=== PATIENT | male | born 1940 | race Caucasian/White ===

== ENCOUNTER 2019-07-22 12:03 | Outpatient (CLI) | payer MEDICARE, SELFPAY ==
[2019-07-22 12:35] LABS: Basophils # 0.3 10^3/uL (0.0-0.1); Basophils % 0.3 %; Eosinophils # 0.9 10^3/uL (0.0-0.8); Eosinophils % 0.9 %; Hematocrit 36.8 % (42.0-52.0); Hemoglobin 11.9 g/dL (11.7-16.6); Lymphocytes # 83.6 10^3/uL (0.8-4.8); Lymphocytes % 81.2 %; Mean Corpuscular HGB Conc 32.3 g/dL (30.0-36.0); Mean Corpuscular Volume 95.8 fL (80-94); Mean Platelet Volume 9.7 fL (7.4-10.4); Monocytes # 13.5 10^3/uL (0.2-0.9); Monocytes % 13.1 %; Neutrophils # 4.4 10^3/uL (1.8-7.7); Neutrophils % 4.2 %; Nucleated Red Blood Cells % 0 %; Platelet Count 168 10^3/cmm (130-400); Red Blood Count 3.84 10^6/uL (4.1-5.3); Red Cell Distribution Width 14.6 % (12.1-15.1)
[2019-07-22 12:54] LABS: Alanine Aminotransferase 15 U/L (0-41); Albumin Level 4.5 g/dL (3.5-5.2); Alkaline Phosphatase 63 IU/L (40-130); Anion Gap 14.4 (5-19); Aspartate Amino Transferase 24 U/L (0-40); Blood Urea Nitrogen 19 mg/dL (8-23); Calcium 10.2 mg/dL (8.5-10.5); Carbon Dioxide 24 mmol/L (22-29); Chloride 96 mmol/L (98-107); Globulin 2.9 g/dL (1.3-4.6); Glucose 88 mg/dL (65-115); Lactate Dehydrogenase 317 U/L (135-225); Potassium 4.4 mmol/L (3.5-5.1); Sodium 130 mmol/L (136-145); Total Bilirubin 0.4 mg/dL (0.15-1.2); Total Protein 7.4 g/dL (6.6-8.7)
[2019-07-22 13:06] LABS: Slide Review Slide Review Perform; White Blood Count 102.9 10^3/uL (4.0-10.0)
--- NOTE | 2019-07-23 07:30 | ONC FU_ITS ---
Dr. Ruiz Patient Follow-Up Note Patient: Jay Walsh Unit #: [id number]: 1940 Dicatated By: Ish Ruiz M.D.Date of Visit:Jul 22, 2019 Onc Med Follow-up/Prog Note Chief Complaint: Chronic lymphocytic leukemia. History of Present Illness: This is a 78-year-old man with chronic leukocytic leukemia, Meza stage 0. 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 He is now being followed on yearly surveillance cystoscopy. In the course of having a routine surveillance cystoscopy in December 2015 he was found to have a lymphocytosis. His CBC from 01/04/2016 showed normal hemoglobin at 13.8 g with white blood cell count 26,600 and platelet count 233,000. The differential showed 60% lymphocytes. He was seen for further evaluation by Dr. Scottie Baron on 01/26/2016. A subsequent flow cytometry confirmed a monoclonal population of B lymphocytes with coexpression of CD5 and CD19, consistent with chronic lymphocytic leukemia. He had early stage disease and he was just followed on observation/expectant management. He was seen here initially on 07/30/2018. His CBC at that time showed normal hemoglobin 13.5 g with white blood cell count increased to 43,000 and platelet count normal at 165,000. His chem profile was unremarkable except for mildly elevated BUN and creatinine at 19 1.3 mg/dL. The LDH was mildly elevated at 266/225 U/L. He appeared stable clinically, and he continued on observation/expectant management. His other medical illnesses have been limited to hypertension and superficial bladder cancer. He had smoked in the past, but only for a period of 11 years, and he quit smoking back in 1966. INTERIM HISTORY: At his follow-up visit in January 2019 there was further increase in the white blood cell count to 67,000, but with his hemoglobin stable at 13.0 g and platelet count normal at 186,000. LDH was mildly elevated but also stable. He had a repeat CBC with Dr. Santos at the end of April, and at that point there was just a slight further increase in the white blood cell count to 71,000. He is seen for a follow-up visit. He says he feels fine, though he has not had a lot of energy. He has been taking Tylenol in the morning, because he just feels tired if he does not take it. His ECOG score is 1. Appetite is pretty good. His weight is stable. He has no fever or night sweats. He has no shortness of breath, cough, or chest pain. He has no GI or complaints. He has a little pain at times in the right elbow. He has no other joint or bone pain. He has no focal neurologic symptoms. Medications: Acetaminophen 1 Tablet (of 500 mg) Oral daily, AmLODIPine Besylate 1 (10 mg) Tablet Oral daily, Aspirin 1 (81 mg) Tablet Oral daily, Cetirizine HCl Tablet Oral PRN, Loratadine 1 Tablet (of 10 mg) Oral daily PRN, Multivitamin Adult 1 Tablet Oral daily, Omeprazole 1 (20 mg) Capsule Delayed Release Oral daily Allergies: Azo Tabs and Iodine. Review of Systems: Constitutional - He feels fine, but he does not have good energy. He likes to fish a couple times a week. His appetite is good and his weight is stable. No fever, chills, hot flashes, or night sweats. ECOG score is 1, ENMT - He has sinus trouble related to allergies. No mouth sores. No sore throat or difficulty swallowing, Hematologic/Lymphatic - He bruises easily, Respiratory - No shortness of breath. No cough. No pleuritic pain or hemoptysis, Cardiovascular - No angina pain. No palpitations, Gastrointestinal - No nausea or vomiting. No heartburn or acid reflux. No diarrhea or constipation. No blood in the stool or black stools, Genitourinary (M) - No dysuria or hematuria. No urinary frequency. No urgency or incontinence, Musculoskeletal - He has some stiffness and pain in his elbows, Integumentary - No skin complications, Neurologic - No headache or dizziness. No numbness/paresthesias or other focal neurologic symptoms, Psychiatric - No anxiety or depression. No insomnia. Vital Signs: Performed on Jul 22, 2019 13:36 Height - 72.00 in Weight - 182.0 lbs (LOW) BSA - 2.05 sq.m BMI - 24.68 Temperature - 97.9 F (LOW) Pulse - 70 /min Respiration - 16 /min BP - 138/70 mm(hg) O2 Sat - 100 % Pain - 0 Physical Examination: Constitutional - He looks good generally, Eyes - Sclerae nonicteric. Conjunctivae clear, ENMT - No lesions noted in the oral cavity, Hematologic/Lymphatic - No cervical, clavicular, or axillary adenopathy, Respiratory - Lungs are clear with good air movement bilaterally, Cardiovascular - Heart rhythm is regular. There is no murmur, gallop, or rub noted, Abdomen - Soft. Liver and spleen are not enlarged. There is no abdominal mass or ascites noted and there is no inguinal adenopathy, Extremities - No edema. Pedal pulses are palpable bilaterally, Neurologic - No focal neurologic deficits noted. Lab/Imaging: Test performed on Jul 22, 2019 12:17 LDH (Total) 317 U/L Sodium 130 mmol/L Potassium 4.4 mmol/L Chloride 96 mmol/L CO2 24 mmol/L Anion Gap 14.4 BUN 19 mg/dL Creatinine 1.4 mg/dL Cr Clearance (Est) 49.96 mL/min Glucose 88 mg/dL Calcium 10.2 mg/dL Protein, Total 7.4 g/dL Albumin 4.5 g/dL Globulin 2.9 g/dL Bilirubin, Total 0.4 mg/dL ALT (SGPT) 15 U/L AST (SGOT) 24 U/L Alkaline Phosphatase 63 IU/L WBC 102.9 10 3/uL RBC 3.84 10 6/uL HGB 11.9 g/dL HCT 36.8 % MCV 95.8 fL MCH 31.0 pg MCHC 32.3 g/dL RDW 14.6 % Platelet Count 168 10 3/cmm MPV 9.7 fL Neutrophils 4.4 10 3/uL Lymphocytes 83.6 10 3/uL Monocytes 13.5 10 3/uL Eosinophils 0.9 10 3/uL Basophils 0.3 10 3/uL Neutrophil % 4.2 % Lymphocyte % 81.2 % Monocyte % 13.1 % Eosinophil % 0.9 % Basophils % 0.3 % CBC Slide Review Slide Review Perform Impression: 1. Patient with chronic lymphocytic leukemia, Meza stage 0 at initial diagnosis in December 2015. 2. He has been followed on observation/expectant management. His other medical illnesses include: 3. Hypertension. 4. Superficial bladder cancer, currently on surveillance following TURBT and BCG therapy. During follow-up, there has been a fairly rapid increase in his lymphocyte count. As of his follow-up visit in January 2019 his other blood counts had remained normal. He has now become mildly anemic, and he does have some fatigue. Overall, he does appear to be showing significant disease progression. Plan: I will now start monitoring his blood counts monthly. With any further decline in his hemoglobin/hematocrit levels, he will need to start treatment for the CLL, most likely with the venetoclax/obinutuzumab combination. I will see him again in 3 months, or sooner as needed. Signed By: Ish Ruiz M.D. <<Signature on File>>
== END 2019-07-22 12:04 | disposition home or self-care (01) ==
LOC: ONCMED 12:03
PROVIDERS: Family Provider Family Medicine; PCP Family Medicine; Visit Provider Internal Medicine Medical Oncology
DX: C91.10 Chronic lymphocytic leukemia of B-cell type not having achieved remission (principal); I10 Essential (primary) hypertension; Z79.82 Long term (current) use of aspirin; Z79.899 Other long term (current) drug therapy; Z85.51 Personal history of malignant neoplasm of bladder; Z87.891 Personal history of nicotine dependence; Z92.3 Personal history of irradiation
CPT/HCPCS: 36415; 80053; 83615; 85025; 99214

== ENCOUNTER 2019-08-20 08:25 | Outpatient (CLI) | payer MEDICARE, SELFPAY ==
[2019-08-20 09:10] LABS: Basophils # 0.3 10^3/uL (0.0-0.1); Basophils % 0.2 %; Eosinophils # 1.7 10^3/uL (0.0-0.8); Eosinophils % 1.4 %; Hematocrit 37.5 % (42.0-52.0); Lymphocytes % 80.8 %; Mean Corpuscular Hemoglobin 30.5 pg (28.0-34.0); Mean Corpuscular Volume 95.4 fL (80-94); Mean Platelet Volume 9.7 fL (7.4-10.4); Monocytes # 15.3 10^3/uL (0.2-0.9); Monocytes % 13.2 %; Neutrophils # 4.7 10^3/uL (1.8-7.7); Nucleated Red Blood Cells % 0 %; Platelet Count 202 10^3/cmm (130-400); Red Blood Count 3.93 10^6/uL (4.1-5.3); Red Cell Distribution Width 14.7 % (12.1-15.1)
[2019-08-20 09:37] LABS: Slide Review Slide Review Perform
[2019-08-20 09:41] LABS: Absolute Eosinophils 1.1 10^3/cmm (0.0-0.7); Absolute Segmented Neutrophil 13.9 10/cmm (1.6-7.1); Band Neutrophils Absolute 1.2 10^3/cmm (0.0-1.2); Basophils Absolute 1.2 10^3/cmm (0.0-0.2); Eosinophils 1 %; Lymphocytes 61 %; Lymphocytes Absolute 97.8 10^3/cmm (1.2-3.4); Platelet Estimate Normal (Normal); Segmented Neutrophils 12 %; Smudge Cells 1+; Total Cells Counted 100 (0-100)
[2019-08-20 09:43] LABS: White Blood Count 116.4 10^3/uL (4.0-10.0)
== END 2019-08-20 08:26 | disposition home or self-care (01) ==
LOC: ONCMED 08:27
PROVIDERS: Family Provider Family Medicine; PCP Family Medicine; Visit Provider Internal Medicine Medical Oncology
DX: C91.10 Chronic lymphocytic leukemia of B-cell type not having achieved remission (principal)
CPT/HCPCS: 36415; 85007; 85025

== ENCOUNTER 2019-09-22 08:25 | Outpatient (CLI) | payer MEDICARE, SELFPAY ==
[2019-09-22 10:33] LABS: Hematocrit 35.3 % (42.0-52.0); Hemoglobin 11.2 g/dL (11.7-16.6); Mean Corpuscular HGB Conc 31.7 g/dL (30.0-36.0); Mean Corpuscular Hemoglobin 30.4 pg (28.0-34.0); Mean Corpuscular Volume 95.9 fL (80-94); Mean Platelet Volume 10.1 fL (7.4-10.4); Nucleated Red Blood Cells % 0 %; Platelet Count 171 10^3/cmm (130-400); Red Blood Count 3.68 10^6/uL (4.1-5.3); Red Cell Distribution Width 15.2 % (12.1-15.1)
[2019-09-22 11:01] LABS: Slide Review Slide Review Perform; White Blood Count 132.8 10^3/uL (4.0-10.0)
[2019-09-22 11:03] LABS: Absolute Eosinophils 1.3 10^3/cmm (0.0-0.7); Absolute Segmented Neutrophil 6.6 10/cmm (1.6-7.1); Blastocytes 4 % (0-0); Eosinophils 1 %; Lymphocytes 87 %; Segmented Neutrophils 5 %
[2019-09-22 11:04] LABS: Platelet Estimate Normal (Normal); Total Cells Counted 100 (0-100)
== END 2019-09-22 08:26 | disposition home or self-care (01) ==
LOC: ONCMED 15:36
PROVIDERS: Family Provider Family Medicine; PCP Family Medicine; Visit Provider Internal Medicine Medical Oncology
DX: C91.10 Chronic lymphocytic leukemia of B-cell type not having achieved remission (principal)
CPT/HCPCS: 36415; 85007; 85025

== ENCOUNTER 2019-10-28 12:22 | Outpatient (CLI) | payer MEDICARE, SELFPAY ==
[2019-10-28 12:51] LABS: Basophils # 0.2 10^3/uL (0.0-0.1); Basophils % 0.2 %; Eosinophils # 1.6 10^3/uL (0.0-0.8); Hemoglobin 10.4 g/dL (11.7-16.6); Lymphocytes % 75.3 %; Mean Corpuscular HGB Conc 31.5 g/dL (30.0-36.0); Mean Corpuscular Hemoglobin 30.7 pg (28.0-34.0); Mean Corpuscular Volume 97.3 fL (80-94); Mean Platelet Volume 9.6 fL (7.4-10.4); Monocytes # 31.3 10^3/uL (0.2-0.9); Monocytes % 20.3 %; Neutrophils # 4.2 10^3/uL (1.8-7.7); Neutrophils % 2.7 %; Nucleated Red Blood Cells % 0 %; Platelet Count 189 10^3/cmm (130-400); Red Blood Count 3.39 10^6/uL (4.1-5.3); Red Cell Distribution Width 15.9 % (12.1-15.1)
[2019-10-28 13:10] LABS: Alanine Aminotransferase 19 U/L (0-41); Albumin Level 4.2 g/dL (3.5-5.2); Alkaline Phosphatase 85 IU/L (40-130); Anion Gap 16.7 (5-19); Aspartate Amino Transferase 36 U/L (0-40); Blood Urea Nitrogen 16 mg/dL (8-23); Calcium 10.1 mg/dL (8.5-10.5); Carbon Dioxide 22 mmol/L (22-29); Chloride 99 mmol/L (98-107); Globulin 3.5 g/dL (1.3-4.6); Glucose 95 mg/dL (65-115); Osmolality Calculated 268 mOsm/kg (285-295); Sodium 131 mmol/L (136-145); Total Bilirubin 0.5 mg/dL (0.15-1.2); Total Protein 7.7 g/dL (6.6-8.7)
[2019-10-28 13:19] LABS: Lactate Dehydrogenase 429 U/L (135-225); Potassium 6.7 mmol/L (3.5-5.1)
[2019-10-28 13:51] LABS: Slide Review Slide Review Perform; White Blood Count 154.2 10^3/uL (4.0-10.0)
[2019-10-28 15:23] LABS: Uric Acid 6.9 mg/dL (3.4-7.0)
--- NOTE | 2019-11-01 11:47 | ONC FU_ITS ---
Dr. Ruiz Patient Follow-Up Note Patient: Jay Walsh Unit #: [id number]: 1940 Dicatated By: Ish Ruiz M.D.Date of Visit:Oct 28, 2019 Onc Med Follow-up/Prog Note Chief Complaint: Chronic lymphocytic leukemia. History of Present Illness: This is a 79 year-old man with chronic leukocytic leukemia, Meza stage 0 at initial diagnosis in December 2015. He now has evidence of progression to stage III. 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 He is now being followed on yearly surveillance cystoscopy. In the course of having a routine surveillance cystoscopy in December 2015 he was found to have a lymphocytosis. His CBC from 01/04/2016 showed normal hemoglobin at 13.8 g with white blood cell count 26,600 and platelet count 233,000. The differential showed 60% lymphocytes. He was seen for further evaluation by Dr. Scottie Baron on 01/26/2016. A subsequent flow cytometry confirmed a monoclonal population of B lymphocytes with coexpression of CD5 and CD19, consistent with chronic lymphocytic leukemia. He had early stage disease and he was just followed on observation/expectant management. He was seen here initially on 07/30/2018. His CBC at that time showed normal hemoglobin 13.5 g with white blood cell count increased to 43,000 and platelet count normal at 165,000. His chem profile was unremarkable except for mildly elevated BUN and creatinine at 19 1.3 mg/dL. The LDH was mildly elevated at 266/225 U/L. He appeared stable clinically, and he continued on observation/expectant management. His other medical illnesses have been limited to hypertension and superficial bladder cancer. He had smoked in the past, but only for a period of 11 years, and he quit smoking back in 1966. INTERIM HISTORY: At his follow-up visit in January 2019 there was further increase in the white blood cell count to 67,000, but with his hemoglobin stable at 13.0 g and platelet count normal at 186,000. LDH was mildly elevated but also stable. As of his follow-up visit in June 2019 there was a significant increase in the white blood cell count to 102,000. His hemoglobin was slightly low at 11.9 g. Platelet count remained normal at 168,000. With the decrease in his hemoglobin, I had recommended that he start treatment. Due to the coronavirus pandemic, he requested to put this off until October. He is seen for a follow-up visit. He is still feeling pretty good generally, though he does have fatigue and he says he feels a little weaker every day. He is still doing most of his activities. His ECOG score is 1. He has good appetite. He has no fever or night sweats. He does not complain of shortness of breath or cough, and he has not been having chest pain. He has had some mild constipation, but he says that his bowels are still pretty good. He has no other GI complaints. His urination is a little slow, but not too bad. He has pain in his right elbow, which is not new. He has no focal neurologic symptoms. Medications: Acetaminophen 1 Tablet (of 500 mg) Oral daily, AmLODIPine Besylate 1 (10 mg) Tablet Oral daily, Aspirin 1 (81 mg) Tablet Oral daily, Cetirizine HCl Tablet Oral PRN, Claritin Tablet Oral PRN, Clotrimazole-Betamethasone (1-0.05 %) Cream Topical daily PRN, Loratadine 1 Tablet (of 10 mg) Oral daily PRN, Multivitamin Adult 1 Tablet Oral daily, Omeprazole 1 (20 mg) Capsule Delayed Release Oral daily Allergies: Azo Tabs and Iodine. Review of Systems: Constitutional - He still has fatigue, and he complains that he gets a little weaker every day. He is still doing most of his activities. His appetite is good and his weight is stable. No fever, chills, hot flashes, or night sweats. ECOG score is 1, ENMT - He has allergy related sinus symptoms. No mouth sores. No sore throat or difficulty swallowing, Hematologic/Lymphatic - He has some bruising, Respiratory - No shortness of breath. No cough. No pleuritic pain or hemoptysis, Cardiovascular - No angina pain. No palpitations, Gastrointestinal - No nausea or vomiting. No heartburn or acid reflux. He has some constipation, but his bowels are pretty good. No blood in the stool or black stools, Genitourinary (M) - His urination is a little slow, but pretty good. No dysuria or hematuria. No urinary frequency. No urgency or incontinence, Musculoskeletal - He has some pain in his right elbow, Integumentary - No skin complications, Neurologic - No headache or dizziness. No numbness/paresthesias or other focal neurologic symptoms, Psychiatric - No anxiety or depression. No insomnia. Vital Signs: Performed on Oct 28, 2019 14:35 Height - 72.00 in Weight - 175.8 lbs (LOW) BSA - 2.02 sq.m BMI - 23.84 Temperature - 98.6 F Pulse - 81 /min Respiration - 24 /min BP - 142/73 mm(hg) (HIGH) O2 Sat - 97 % Pain - 0 Physical Examination: Constitutional - He looks good generally, Eyes - Sclerae nonicteric. Conjunctivae clear, ENMT - No lesions noted in the oral cavity, Hematologic/Lymphatic - The submandibular glands are slightly prominent. There is no cervical, clavicular, or axillary adenopathy noted, Respiratory - Lungs are clear with good air movement bilaterally, Cardiovascular - Heart rhythm is regular. There is no murmur, gallop, or rub noted, Abdomen - Soft. Liver and spleen are not enlarged. There is no abdominal mass or ascites noted and there is no inguinal adenopathy, Extremities - No edema, Neurologic - No focal neurologic deficits noted. Lab/Imaging: Test performed on Oct 28, 2019 12:30 LDH (Total) 429 U/L Sodium 131 mmol/L Uric Acid 6.9 mg/dL Potassium 6.7 mmol/L Chloride 99 mmol/L CO2 22 mmol/L Anion Gap 16.7 BUN 16 mg/dL Creatinine 1.4 mg/dL Cr Clearance (Est) 48.26 mL/min Glucose 95 mg/dL Calcium 10.1 mg/dL Protein, Total 7.7 g/dL Albumin 4.2 g/dL Globulin 3.5 g/dL Bilirubin, Total 0.5 mg/dL ALT (SGPT) 19 U/L AST (SGOT) 36 U/L Alkaline Phosphatase 85 IU/L WBC 154.2 10 3/uL RBC 3.39 10 6/uL HGB 10.4 g/dL HCT 33.0 % MCV 97.3 fL MCH 30.7 pg MCHC 31.5 g/dL RDW 15.9 % Platelet Count 189 10 3/cmm MPV 9.6 fL Neutrophils 4.2 10 3/uL Lymphocytes 116.0 10 3/uL Monocytes 31.3 10 3/uL Eosinophils 1.6 10 3/uL Basophils 0.2 10 3/uL Neutrophil % 2.7 % Lymphocyte % 75.3 % Monocyte % 20.3 % Eosinophil % 1.0 % Basophils % 0.2 % CBC Slide Review Slide Review Perform SLIDE REVIEW AGREES WITH AUTOMATED RESULTS Impression: 1. Patient with chronic lymphocytic leukemia, Meza stage 0 at initial diagnosis in December 2015, but with subsequent progression to stage III. 2. He has been followed on observation/expectant management. His other medical illnesses include: 3. Hypertension. 4. Superficial bladder cancer, currently on surveillance following TURBT and BCG therapy. During follow-up, there has been a fairly rapid increase in his lymphocyte count. As of his follow-up visit in January 2019 his other blood counts had remained normal. However, by June 2019 his white count had increased significantly, to 102,000. At that point his hemoglobin had dropped to 11.9 g, consistent with Meza stage III disease. With that finding, I had recommended that he start treatment. Due to the coronavirus pandemic, he requested to put it off until October. Since then there has been further increase in the white blood cell count to 154,000 and the hemoglobin is now down to 10.4 g. He does have some fatigue. He otherwise appears stable clinically. Plan: He will return next week to begin treatment with obinutuzumab in combination with venetoclax. He is starting allopurinol prophylaxis this week. Signed By: Ish Ruiz M.D. <<Signature on File>>
== END 2019-10-28 12:23 | disposition home or self-care (01) ==
LOC: ONCMED 12:22
PROVIDERS: Family Provider Family Medicine; PCP Family Medicine; Visit Provider Internal Medicine Medical Oncology
DX: C91.10 Chronic lymphocytic leukemia of B-cell type not having achieved remission (principal); C67.9 Malignant neoplasm of bladder, unspecified; I10 Essential (primary) hypertension
CPT/HCPCS: 36415; 80053; 83615; 84550; 85025; 99214

== ENCOUNTER 2019-11-24 06:50 | Outpatient (RCR) | payer MEDICARE, SELFPAY ==
[2019-11-03] MEDS: sodium chloride 0.9% 500 ML 999 ML IV (09:30)
[2019-11-03] MEDS: acetaminophen 325 mg Tablet 650 MG PO (09:30)
[2019-11-03] MEDS: dexamethasone 20 MG in sodium chloride 0.9% 50 ML 187 MG IV (09:35)
[2019-11-03] MEDS: sodium chloride 0.9% (100 ml) 100 ML 25 ML (09:35)
[2019-11-03] MEDS: ondansetron 2 mg/ML SDV 2 mL 8 MG IV (11:28)
[2019-11-04] MEDS: sodium chloride 0.9% 500 ML 999 ML IV (08:45)
[2019-11-04] MEDS: acetaminophen 325 mg Tablet 650 MG PO (08:45)
[2019-11-04] MEDS: dexamethasone 20 MG in sodium chloride 0.9% 50 ML 187 MG IV (08:50)
[2019-11-04] MEDS: sodium chloride 0.9% (100 ml) 100 ML 45 ML (09:45)
[2019-11-10 08:51] LABS: Basophils % 0.8 %; Eosinophils # 0.3 10^3/uL (0.0-0.8); Eosinophils % 6.6 %; Hematocrit 31.1 % (42.0-52.0); Hemoglobin 10.3 g/dL (11.7-16.6); Lymphocytes # 2.1 10^3/uL (0.8-4.8); Mean Corpuscular HGB Conc 33.1 g/dL (30.0-36.0); Mean Corpuscular Volume 90.7 fL (80-94); Monocytes # 0.4 10^3/uL (0.2-0.9); Monocytes % 8.5 %; Neutrophils # 2.2 10^3/uL (1.8-7.7); Neutrophils % 42.3 %; Nucleated Red Blood Cells % 0 %; Platelet Count 146 10^3/cmm (130-400); Red Blood Count 3.43 10^6/uL (4.1-5.3); White Blood Count 5.2 10^3/uL (4.0-10.0)
[2019-11-10 09:07] LABS: Alanine Aminotransferase 28 U/L (0-41); Albumin Level 3.9 g/dL (3.5-5.2); Alkaline Phosphatase 70 IU/L (40-130); Anion Gap 15.4 (5-19); Aspartate Amino Transferase 23 U/L (0-40); Blood Urea Nitrogen 17 mg/dL (8-23); Calcium 9.3 mg/dL (8.5-10.5); Carbon Dioxide 22 mmol/L (22-29); Chloride 98 mmol/L (98-107); Globulin 3.2 g/dL (1.3-4.6); Glucose 102 mg/dL (65-115); Osmolality Calculated 269 mOsm/kg (285-295); Potassium 4.4 mmol/L (3.5-5.1); Sodium 131 mmol/L (136-145); Total Bilirubin 0.6 mg/dL (0.15-1.2); Total Protein 7.1 g/dL (6.6-8.7); Uric Acid 4.8 mg/dL (3.4-7.0)
[2019-11-10] MEDS: sodium chloride 0.9% 500 ML 999 ML IV (10:51)
[2019-11-10] MEDS: acetaminophen 325 mg Tablet 650 MG PO (10:54)
[2019-11-10] MEDS: dexamethasone 20 MG in sodium chloride 0.9% 50 ML 187 MG IV (11:10)
--- NOTE | 2019-11-10 11:13 | ONC FU_ITS ---
[facility] Patient Note Patient: Jay Walsh Unit #: [id number]: 1940 Dictated By: Rhett GodwinDate of Visit: Nov 10, 2019 Onc MED Follow-Up/Prog Note Chief Complaint: Chronic lymphocytic leukemia. 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 He now has evidence of progression to stage III. 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 He is now being followed on yearly surveillance cystoscopy. In the course of having a routine surveillance cystoscopy in December 2015 he was found to have a lymphocytosis. His CBC from 01/04/2016 showed normal hemoglobin at 13.8 g with white blood cell count 26,600 and platelet count 233,000. The differential showed 60% lymphocytes. He was seen for further evaluation by Dr. Scottie Baron on 01/26/2016. A subsequent flow cytometry confirmed a monoclonal population of B lymphocytes with coexpression of CD5 and CD19, consistent with chronic lymphocytic leukemia. He had early stage disease and he was just followed on observation/expectant management. He was seen here initially on 07/30/2018. His CBC at that time showed normal hemoglobin 13.5 g with white blood cell count increased to 43,000 and platelet count normal at 165,000. His chem profile was unremarkable except for mildly elevated BUN and creatinine at 19 1.3 mg/dL. The LDH was mildly elevated at 266/225 U/L. He appeared stable clinically, and he continued on observation/expectant management. His other medical illnesses have been limited to hypertension and superficial bladder cancer. He had smoked in the past, but only for a period of 11 years, and he quit smoking back in 1966. INTERIM HISTORY: At his follow-up visit in January 2019 there was further increase in the white blood cell count to 67,000, but with his hemoglobin stable at 13.0 g and platelet count normal at 186,000. LDH was mildly elevated but also stable. As of his follow-up visit in June 2019 there was a significant increase in the white blood cell count to 102,000. His hemoglobin was slightly low at 11.9 g. Platelet count remained normal at 168,000. With the decrease in his hemoglobin, Dr Ruiz had recommended that he start treatment. Due to the coronavirus pandemic, he requested to put this off until October. Mr Walsh began treatment with obinutuzumab on 11/03/2019. Mr Walsh is here today for followup. He is due for cycle 1 day 8 obinutuzumab. He did have difficulty with nausea significant weakness and fatigue with day 1 to treatment. He states for about 3 to 4 days after treatment he felt pretty washed out and weak. However the last 3 days he states he has felt really good. He states I feel better than I have before I got sick . He states he has been trying to be active around the house. Has been out tying up tomatoes and working in the yard. He states his appetite is good. He denies any fever or chills. He denies any taste changes. He has had no trouble swallowing. He states he thinks the lymph nodes in his neck are much better as well. He states his breathing has been normal for him. No chest pain or palpitations. His bowels are normal for him. He states he has some chronic constipation but has a controlled with stool softeners and as needed laxatives. He denies any pain. He denies any lower extremity edema. His ECOG is 1. Past Medical History: Chronic lymphocytic leukemia History of colon polyps Hypertension Superficial bladder cancer Past Surgical History: Bilateral cataract excisions Multiple cystoscopies TURBT and BCG therapy Colonoscopy in 2018 TURP in 1993 Allergies: Azo Tabs and Iodine. Medications: Acetaminophen 1 Tablet (of 500 mg) Oral daily AmLODIPine Besylate 1 (10 mg) Tablet Oral daily Aspirin 1 (81 mg) Tablet Oral daily Claritin Tablet Oral PRN Clotrimazole-Betamethasone (1-0.05 %) Cream Topical daily PRN Loratadine 1 Tablet (of 10 mg) Oral daily PRN Multivitamin Adult 1 Tablet Oral daily Omeprazole 1 (20 mg) Capsule Delayed Release Oral daily Family History: Mr. Walsh's mother at age 90: heart disease. Mr. Walsh's father at age 78: myocardial infarction. Mr. Walsh has 3 brothers: 3 . Mr. Walsh's first brother's lung cancer. Another brother's prostate cancer. He has 1 sister who is . Father of heart attack at age 78. Mother also had heart disease, but she lived to age 90. A brother of lung cancer at age 80 and another of prostate cancer at age 70. Another brother and a sister both of heart disease. Social History: Mr. Walsh is and he is retired. Mr. Walsh quit smoking 51 years ago but had smoked 1.0 pack/day for 0 years. He has no history of drinking. He has a history of smoking for 11 years. He quit smoking in 1966. He had some alcohol use when he was young , but none since then. Review Of Symptoms: Constitutional Denies and current fevers, chills, night sweats, excessive fatigue or weight loss. Had significant fatigue for about 3-4 days after treatment. Feels better over the last 3 days than I have since before I got sick . Allergic/Immunologic No reactions. Eyes Denies significant visual changes. No diplopia. No amaurosis. ENMT Denies changes in hearing, sore throat, mouth sores, difficulty or changes in swallowing ability, and/or sinus drainage. Hematologic/Lymphatic Denies easy bruising or bleeding. The patient denies any tender or palpable lymph nodes. Breasts Respiratory Denies dyspnea on exertion, chest pain, cough or hemoptysis. Denies orthopnea. Cardiovascular Denies anginal chest pain, palpitations or orthopnea. Gastrointestinal Denies any current nausea, vomiting, diarrhea, GI bleeding, or constipation. Denies change in bowel habits and/or stool color, no heartburn or early satiety. Had nausea after day 1 and 2 but resolved. Some chronic constipation, but they are moving good now. Genitourinary (M) Denies hematuria, dysuria, increased frequency, urgency, hesitancy or incontinence. Musculoskeletal Denies joint pain, swelling or redness. No decreased range of motion. Integumentary Denies chronic rashes, inflammation, ulcerations or skin changes. Neurologic Denies headache, blurred vision, and no areas of focal weakness or numbness. Normal gait. No sensory problems. Psychiatric Denies insomnia, depression, yan or mood swings. Vital Signs: Performed on Nov 10, 2019 10:03 Height - 72.00 in Weight - 174.6 lbs (LOW) BSA - 2.01 sq.m BMI - 23.68 Temperature - 98.9 F (HIGH) Pulse - 72 /min Respiration - 18 /min BP - 127/62 mm(hg) O2 Sat - 99 % Pain - 0,1 - No physically strenuous activity, but ambulatory and able to carry out light or sedentary work (e.g. office work, light house work). (ECOG) Physical Examination: Constitutional Alert, oriented, no acute distress. Skin pink, warm and dry. Head Normocephalic; atraumatic. Eyes Conjunctivae and sclerae are clear and without icterus. Pupils are reactive and equal. Neck Supple without masses or thyromegaly. No jugular venous distension. Hematologic/Lymphatic No petechiae or purpura. No tender or palpable lymph nodes in the cervical or supraclavicular areas. Respiratory Lungs are clear to auscultation without rhonchi or wheezing. Cardiovascular Regular rate and rhythm of heart without murmurs,clicks, gallops or rubs. Back/Spine Non-tender to palpation. Extremities No visible deformities, no cyanosis, clubbing or edema. Musculoskeletal No tenderness or swelling, normal range of motion without obvious weakness. Integumentary No rashes or lesions. Neurologic No sensory or motor deficits, normal cerebellar function, normal gait. Psychiatric Alert and oriented times three. Coherent speech. Verbalizes understanding of our discussions today. Laboratory:Test performed on Nov 10, 2019 08:41 Sodium 131 mmol/L Uric Acid 4.8 mg/dL Potassium 4.4 mmol/L Chloride 98 mmol/L CO2 22 mmol/L Anion Gap 15.4 BUN 17 mg/dL Creatinine 1.1 mg/dL Cr Clearance (Est) 61.0000 mL/min Glucose 102 mg/dL Calcium 9.3 mg/dL Protein, Total 7.1 g/dL Albumin 3.9 g/dL Globulin 3.2 g/dL Bilirubin, Total 0.6 mg/dL ALT (SGPT) 28 U/L AST (SGOT) 23 U/L Alkaline Phosphatase 70 IU/L WBC 5.2 10 3/uL RBC 3.43 10 6/uL HGB 10.3 g/dL HCT 31.1 % MCV 90.7 fL MCH 30.0 pg MCHC 33.1 g/dL RDW 16.0 % Platelet Count 146 10 3/cmm MPV 9.0 fL Neutrophils 2.2 10 3/uL Lymphocytes 2.1 10 3/uL Monocytes 0.4 10 3/uL Eosinophils 0.3 10 3/uL Basophils 0.0 10 3/uL Neutrophil % 42.3 % Lymphocyte % 41.0 % Monocyte % 8.5 % Eosinophil % 6.6 % Basophils % 0.8 % NRBC % 0 % Test performed on Oct 28, 2019 12:30 LDH (Total) 429 U/L CBC Slide Review Slide Review Perform SLIDE REVIEW AGREES WITH AUTOMATED RESULTS Impression: 1. Patient with chronic lymphocytic leukemia, Meza stage 0 at initial diagnosis in December 2015, but with subsequent progression to stage III. 2. He has been followed on observation/expectant management. His other medical illnesses include: 3. Hypertension. 4. Superficial bladder cancer, currently on surveillance following TURBT and BCG therapy. During follow-up, there has been a fairly rapid increase in his lymphocyte count. As of his follow-up visit in January 2019 his other blood counts had remained normal. However, by June 2019 his white count had increased significantly, to 102,000. At that point his hemoglobin had dropped to 11.9 g, consistent with Meza stage III disease. With that finding, Dr Ruiz had recommended that he start treatment. Due to the coronavirus pandemic, he requested to put it off until October. Since then there has been further increase in the white blood cell count to 154,000 and the hemoglobin was now down to 10.4 g. He does have some fatigue. He otherwise appeared stable clinically. Mr. Walsh begin treatment with obinutuzumab on November 03, 2019. He had initial nausea, significant fatigue, for the first 3 to 4 days of cycle 1 but that has resolved and he is doing well currently. Plan: 1. Proceed with cycle 1 day 8 obinutuzumab. Continue same premeds. 2. Complete prescription of Allopurinol. 3. Today's labs were reviewed in detail and discussed with Mr. Walsh and a copy was given to him. WBC 5.2, hemoglobin 10.3, platelets 146,200. Creatinine 1.1, potassium 4.4 LFTs are normal. 4. We will continue with the current plan of care. He is tolerating it reasonably well after the first few days of cycle 1. He has had no nausea and has had increased performance status over the last 3 days. 5. We will plan to see him back in 1 week with CBC CMP. It is noted that his white count did drop from 154.2 on October 27, 2021 and is 5.2 today. 6. Mr. Walsh was instructed to contact us in the interim should questions or problems arise. 7. We did discuss using sunscreen if he is outside. I recommended at least and SPF of 30. Signed By: Rhett Godwin-, [facility] Ish Ruiz MD <<Signature on File>>
[2019-11-17 08:55] LABS: Basophils # 0.1 10^3/uL (0.0-0.1); Eosinophils # 0.4 10^3/uL (0.0-0.8); Eosinophils % 8.6 %; Hematocrit 29.5 % (42.0-52.0); Hemoglobin 9.7 g/dL (11.7-16.6); Lymphocytes # 1.8 10^3/uL (0.8-4.8); Lymphocytes % 36.6 %; Mean Corpuscular HGB Conc 32.9 g/dL (30.0-36.0); Mean Corpuscular Hemoglobin 29.8 pg (28.0-34.0); Mean Corpuscular Volume 90.8 fL (80-94); Mean Platelet Volume 9.4 fL (7.4-10.4); Monocytes # 0.5 10^3/uL (0.2-0.9); Monocytes % 9.2 %; Neutrophils # 2.2 10^3/uL (1.8-7.7); Neutrophils % 44.2 %; Nucleated Red Blood Cells % 0 %; Platelet Count 141 10^3/cmm (130-400); Red Blood Count 3.25 10^6/uL (4.1-5.3); Red Cell Distribution Width 16.2 % (12.1-15.1); White Blood Count 4.9 10^3/uL (4.0-10.0)
[2019-11-17 09:13] LABS: Alanine Aminotransferase 16 U/L (0-41); Albumin Level 3.8 g/dL (3.5-5.2); Alkaline Phosphatase 69 IU/L (40-130); Aspartate Amino Transferase 21 U/L (0-40); Blood Urea Nitrogen 18 mg/dL (8-23); Calcium 9.2 mg/dL (8.5-10.5); Carbon Dioxide 21 mmol/L (22-29); Chloride 103 mmol/L (98-107); Globulin 2.6 g/dL (1.3-4.6); Glucose 117 mg/dL (65-115); Osmolality Calculated 276 mOsm/kg (285-295); Sodium 134 mmol/L (136-145); Total Bilirubin 0.7 mg/dL (0.15-1.2); Total Protein 6.4 g/dL (6.6-8.7)
[2019-11-17] MEDS: sodium chloride 0.9% 500 ML 999 ML IV (10:51)
[2019-11-17] MEDS: acetaminophen 325 mg Tablet 650 MG PO (10:54)
[2019-11-17] MEDS: dexamethasone 20 MG in sodium chloride 0.9% 50 ML 187 MG IV (11:10)
--- NOTE | 2019-11-17 11:29 | ONC FU_ITS ---
[facility] Patient Note Patient: Jay Walsh Unit #: [id number]: 1940 Dictated By: Rhett GodwinDate of Visit: Nov 17, 2019 Onc MED Follow-Up/Prog Note Chief Complaint: Chronic lymphocytic leukemia. 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 He now has evidence of progression to stage III. 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 He is now being followed on yearly surveillance cystoscopy. In the course of having a routine surveillance cystoscopy in December 2015 he was found to have a lymphocytosis. His CBC from 01/04/2016 showed normal hemoglobin at 13.8 g with white blood cell count 26,600 and platelet count 233,000. The differential showed 60% lymphocytes. He was seen for further evaluation by Dr. Scottie Baron on 01/26/2016. A subsequent flow cytometry confirmed a monoclonal population of B lymphocytes with coexpression of CD5 and CD19, consistent with chronic lymphocytic leukemia. He had early stage disease and he was just followed on observation/expectant management. He was seen here initially on 07/30/2018. His CBC at that time showed normal hemoglobin 13.5 g with white blood cell count increased to 43,000 and platelet count normal at 165,000. His chem profile was unremarkable except for mildly elevated BUN and creatinine at 19 1.3 mg/dL. The LDH was mildly elevated at 266/225 U/L. He appeared stable clinically, and he continued on observation/expectant management. His other medical illnesses have been limited to hypertension and superficial bladder cancer. He had smoked in the past, but only for a period of 11 years, and he quit smoking back in 1966. INTERIM HISTORY: At his follow-up visit in January 2019 there was further increase in the white blood cell count to 67,000, but with his hemoglobin stable at 13.0 g and platelet count normal at 186,000. LDH was mildly elevated but also stable. As of his follow-up visit in June 2019 there was a significant increase in the white blood cell count to 102,000. His hemoglobin was slightly low at 11.9 g. Platelet count remained normal at 168,000. With the decrease in his hemoglobin, Dr Ruiz had recommended that he start treatment. Due to the coronavirus pandemic, he requested to put this off until October. Mr Walsh began treatment with obinutuzumab on 11/03/2019. Mr Walsh is here today for followup. He is due for cycle 1 day 15 obinutuzumab. He did have difficulty with nausea, significant weakness and fatigue with day 1. That has resolved and he states his only side effect is feeling a little weak for the first few days after treatment. He states he drank a water hose about 100 feet in was worn out. He states he rested about 5 to 10 minutes and was able to complete his chores without any further problems. He states yesterday however he mowed his yard with no problems. He remains active around the farm and house. He denies any new pain. He has had no nausea or vomiting. He denies any fever or chills. He has had no signs of infection for at least the last 72 hours. He states his bowels and bladder are normal for him. He is eating good. He denies any neuropathy. He denies headaches or vision changes. His ECOG is 0. Past Medical History: Chronic lymphocytic leukemia History of colon polyps Hypertension Superficial bladder cancer Past Surgical History: Bilateral cataract excisions Multiple cystoscopies TURBT and BCG therapy Colonoscopy in 2018 TURP in 1994 Allergies: Azo Tabs and Iodine. Medications: Acetaminophen 1 Tablet (of 500 mg) Oral daily Allopurinol 1 Tablet (of 300 mg) Oral daily AmLODIPine Besylate 1 (10 mg) Tablet Oral daily Aspirin 1 (81 mg) Tablet Oral daily Claritin Tablet Oral PRN Clotrimazole-Betamethasone (1-0.05 %) Cream Topical daily PRN Diprolene Ointment Topical Loratadine 1 Tablet (of 10 mg) Oral daily PRN Melatonin 1 Capsule (of 10 mg) Oral daily PRN Metamucil Pack Oral Multivitamin Adult 1 Tablet Oral daily Omeprazole 1 (20 mg) Capsule Delayed Release Oral daily Family History: Mr. Walsh's mother at age 90: heart disease. Mr. Thomass father at age 78: myocardial infarction. Mr. Walsh has 3 brothers: 3 . Mr. Walsh's first brother's lung cancer. Another brother's prostate cancer. He has 1 sister who is . Father of heart attack at age 78. Mother also had heart disease, but she lived to age 90. A brother of lung cancer at age 80 and another of prostate cancer at age 70. Another brother and a sister both of heart disease. Social History: Mr. Walsh is and he is retired. Mr. Walsh quit smoking 51 years ago but had smoked 1.0 pack/day for 0 years. He has no history of drinking. Review Of Symptoms: Constitutional Denies and current fevers, chills, night sweats, excessive fatigue or weight loss. Has significant fatigue for about 3-4 days after treatment but then it resolves and he feels better than I have since before I got sick . Allergic/Immunologic No reactions. Eyes Denies significant visual changes. No diplopia. No amaurosis. ENMT Denies changes in hearing, sore throat, mouth sores, difficulty or changes in swallowing ability, and/or sinus drainage. Hematologic/Lymphatic Denies easy bruising or bleeding. The patient denies any tender or palpable lymph nodes. Respiratory Denies dyspnea on exertion, chest pain, cough or hemoptysis. Denies orthopnea. Cardiovascular Denies anginal chest pain, palpitations or orthopnea. Gastrointestinal Denies any current nausea, vomiting, diarrhea, GI bleeding, or constipation. Denies change in bowel habits and/or stool color, no heartburn or early satiety. Genitourinary (M) Denies hematuria, dysuria, increased frequency, urgency, hesitancy or incontinence. Musculoskeletal Denies joint pain, swelling or redness. No decreased range of motion. Integumentary Denies chronic rashes, inflammation, ulcerations or skin changes. Neurologic Denies headache, blurred vision, and no areas of focal weakness or numbness. Normal gait. No sensory problems. Psychiatric Denies insomnia, depression, yan or mood swings. Vital Signs: Performed on Nov 17, 2019 10:07 Height - 72.00 in Weight - 174.0 lbs (LOW) BSA - 2.01 sq.m BMI - 23.60 Temperature - 98.4 F Pulse - 73 /min Respiration - 18 /min BP - 128/59 mm(hg) O2 Sat - 99 % Pain - 0,0 - Fully active, able to carry on all predisease activities without restrictions. (ECOG) Physical Examination: Constitutional Alert, oriented, no acute distress. Skin pink, warm and dry. Head Normocephalic; atraumatic. Eyes Conjunctivae and sclerae are clear and without icterus. Pupils are reactive and equal. Neck Supple without masses or thyromegaly. No jugular venous distension. Hematologic/Lymphatic No petechiae or purpura. No tender or palpable lymph nodes in the cervical or supraclavicular areas. Respiratory Lungs are clear to auscultation without rhonchi or wheezing. Cardiovascular Regular rate and rhythm of heart without murmurs,clicks, gallops or rubs. Back/Spine Non-tender to palpation. Extremities No visible deformities, no cyanosis, clubbing or edema. Musculoskeletal No tenderness or swelling, normal range of motion without obvious weakness. Integumentary No rashes or lesions. Neurologic No sensory or motor deficits, normal cerebellar function, normal gait. Psychiatric Alert and oriented times three. Coherent speech. Verbalizes understanding of our discussions today. Laboratory:Test performed on Nov 17, 2019 08:40 Sodium 134 mmol/L Potassium 4.0 mmol/L Chloride 103 mmol/L CO2 21 mmol/L Anion Gap 14.0 BUN 18 mg/dL Creatinine 1.1 mg/dL Cr Clearance (Est) 60.7900 mL/min Glucose 117 mg/dL Calcium 9.2 mg/dL Protein, Total 6.4 g/dL Albumin 3.8 g/dL Globulin 2.6 g/dL Bilirubin, Total 0.7 mg/dL ALT (SGPT) 16 U/L AST (SGOT) 21 U/L Alkaline Phosphatase 69 IU/L WBC 4.9 10 3/uL RBC 3.25 10 6/uL HGB 9.7 g/dL HCT 29.5 % MCV 90.8 fL MCH 29.8 pg MCHC 32.9 g/dL RDW 16.2 % Platelet Count 141 10 3/cmm MPV 9.4 fL Neutrophils 2.2 10 3/uL Lymphocytes 1.8 10 3/uL Monocytes 0.5 10 3/uL Eosinophils 0.4 10 3/uL Basophils 0.1 10 3/uL Neutrophil % 44.2 % Lymphocyte % 36.6 % Monocyte % 9.2 % Eosinophil % 8.6 % Basophils % 1.0 % NRBC % 0 % Impression: 1. Patient with chronic lymphocytic leukemia, Meza stage 0 at initial diagnosis in December 2015, but with subsequent progression to stage III. 2. He has been followed on observation/expectant management. His other medical illnesses include: 3. Hypertension. 4. Superficial bladder cancer, currently on surveillance following TURBT and BCG therapy. During follow-up, there has been a fairly rapid increase in his lymphocyte count. As of his follow-up visit in January 2019 his other blood counts had remained normal. However, by June 2019 his white count had increased significantly, to 102,000. At that point his hemoglobin had dropped to 11.9 g, consistent with Meza stage III disease. With that finding, Dr Ruiz had recommended that he start treatment. Due to the coronavirus pandemic, he requested to put it off until October. Since then there has been further increase in the white blood cell count to 154,000 and the hemoglobin was now down to 10.4 g. He does have some fatigue. He otherwise appeared stable clinically. Mr. Walsh begin treatment with obinutuzumab on November 03, 2019. He had initial nausea, significant fatigue, for the first 3 to 4 days of cycle 1 but that has resolved and he is doing well currently. He has tolerated day 8 treatment well. He does have some significant fatigue the first through third day after chemo, but recovers well on day 4 & 5. He states he feels better than he did before he got sick on the days after that. Today will complete day 15 of cycle 1 obinutuzumab. He is scheduled to began his venetoclax on day 22-which is next week (october). He has tolerated treatment well thus far. Plan: 1. Proceed with cycle 1 day 15 obinutuzumab. Continue same premeds. This is a 28 day cycle plan. 2. Complete prescription of Allopurinol. 3. Today's labs were reviewed in detail and discussed with Mr. Walsh and a copy was given to him. WBC 4.9 , hemoglobin 9.7, platelets 141.000 . Creatinine 1.1, potassium 4.0 and LFTs are normal. 4. We will continue with the current plan of care. His obinutuzumab cycles 2 through 6 is treatment on day 1 only repeat every 28 days for a total of 5 doses. 5. Mr Walsh will begin his starter pack of the venetoclax on day 22 which will fall on November 24, 2019. He will start with week 1 being 20 mg daily. Week 2 will be 50 mg daily; week 3 is 100 mg daily; week fourth 100 mg daily and then starting week 5 will be 400 mg daily if he tolerates this taper. 5. We will plan to have him return in 1 week for CBC CMP. He will start venetoclax 20 mg orally in 1 week. It is noted that his white count did drop from 154.2 on October 27, 2021 and is 4.9 today. He prefers ti have his labs drawn here in our office. 6. Mr. Walsh was instructed to contact us in the interim should questions or problems arise. 7. He was encouraged to drink at least 56 ounces of water daily with the venetoclax. 8. We discussed that he will need to AVOID GRAPEFRUIT PRODCUTS AND SEVILLE ORANGES while on the venetoclax. 9. We will plan to see him back in 2 weeks iwth CBC, CMP, LDH. Signed By: Rhett Godwin-, AOCNP Ish Ruiz MD <<Signature on File>>
[2019-11-24 11:53] LABS: Basophils # 0.1 10^3/uL (0.0-0.1); Basophils % 1.1 %; Eosinophils # 0.5 10^3/uL (0.0-0.8); Eosinophils % 8.5 %; Hematocrit 29.8 % (42.0-52.0); Hemoglobin 9.8 g/dL (11.7-16.6); Lymphocytes # 2.1 10^3/uL (0.8-4.8); Lymphocytes % 37.8 %; Mean Corpuscular HGB Conc 32.9 g/dL (30.0-36.0); Mean Corpuscular Hemoglobin 29.9 pg (28.0-34.0); Mean Corpuscular Volume 90.9 fL (80-94); Monocytes # 0.6 10^3/uL (0.2-0.9); Neutrophils # 2.2 10^3/uL (1.8-7.7); Neutrophils % 41.2 %; Nucleated Red Blood Cells % 0 %; Platelet Count 186 10^3/cmm (130-400); Red Blood Count 3.28 10^6/uL (4.1-5.3); Red Cell Distribution Width 16.5 % (12.1-15.1); White Blood Count 5.4 10^3/uL (4.0-10.0)
[2019-11-24 12:15] LABS: Alanine Aminotransferase 16 U/L (0-41); Albumin Level 3.8 g/dL (3.5-5.2); Alkaline Phosphatase 69 IU/L (40-130); Anion Gap 13.9 (5-19); Aspartate Amino Transferase 20 U/L (0-40); Blood Urea Nitrogen 15 mg/dL (8-23); Carbon Dioxide 24 mmol/L (22-29); Chloride 100 mmol/L (98-107); Glucose 100 mg/dL (65-115); Osmolality Calculated 274 mOsm/kg (285-295); Potassium 3.9 mmol/L (3.5-5.1); Sodium 134 mmol/L (136-145); Thyroid Stimulating Hormone 1.38 uIU/mL (0.27-4.20); Total Bilirubin 0.7 mg/dL (0.15-1.2); Total Protein 6.8 g/dL (6.6-8.7)
== END 2019-11-25 23:59 | disposition home or self-care (01) ==
LOC: ONCMED 06:50
PROVIDERS: Nurse Practitioner; Family Provider Family Medicine; PCP Family Medicine; Visit Provider Internal Medicine Medical Oncology
DX: Z51.11 Encounter for antineoplastic chemotherapy (principal); C91.10 Chronic lymphocytic leukemia of B-cell type not having achieved remission; I10 Essential (primary) hypertension; Z86.010 Personal history of colon polyps
CPT/HCPCS: 80053; 84443; 84550; 85025; 96367; 96368; 96375; 96413; 96415; 99214; J1100; J1200; J2405; J7040; J7050; J9301

== ENCOUNTER 2019-12-22 06:44 | Outpatient (RCR) | payer MEDICARE, SELFPAY ==
[2019-12-01 09:53] LABS: Basophils # 0.1 10^3/uL (0.0-0.1); Basophils % 1.3 %; Eosinophils # 0.3 10^3/uL (0.0-0.8); Eosinophils % 6.2 %; Hematocrit 29.8 % (42.0-52.0); Lymphocytes # 2.2 10^3/uL (0.8-4.8); Lymphocytes % 40.7 %; Mean Corpuscular HGB Conc 33.6 g/dL (30.0-36.0); Mean Corpuscular Hemoglobin 30.6 pg (28.0-34.0); Mean Corpuscular Volume 91.1 fL (80-94); Mean Platelet Volume 9.1 fL (7.4-10.4); Monocytes # 0.7 10^3/uL (0.2-0.9); Monocytes % 12.4 %; Neutrophils # 2.1 10^3/uL (1.8-7.7); Neutrophils % 39.2 %; Nucleated Red Blood Cells % 0 %; Platelet Count 225 10^3/cmm (130-400); Red Blood Count 3.27 10^6/uL (4.1-5.3); Red Cell Distribution Width 16.2 % (12.1-15.1); White Blood Count 5.3 10^3/uL (4.0-10.0)
[2019-12-01 10:29] LABS: Alanine Aminotransferase 14 U/L (0-41); Albumin Level 4.1 g/dL (3.5-5.2); Alkaline Phosphatase 63 IU/L (40-130); Anion Gap 14.9 (5-19); Aspartate Amino Transferase 22 U/L (0-40); Blood Urea Nitrogen 12 mg/dL (8-23); Calcium 9.3 mg/dL (8.5-10.5); Carbon Dioxide 22 mmol/L (22-29); Chloride 99 mmol/L (98-107); Glucose 98 mg/dL (65-115); Osmolality Calculated 270 mOsm/kg (285-295); Potassium 3.9 mmol/L (3.5-5.1); Sodium 132 mmol/L (136-145); Thyroid Stimulating Hormone 1.81 uIU/mL (0.27-4.20); Total Bilirubin 0.7 mg/dL (0.15-1.2); Total Protein 7.1 g/dL (6.6-8.7)
[2019-12-01] MEDS: dexamethasone 20 MG in sodium chloride 0.9% 50 ML 187 MG IV (11:20)
[2019-12-01] MEDS: sodium chloride 0.9% 250 ML 999 ML IV (11:20)
[2019-12-01] MEDS: acetaminophen 325 mg Tablet 650 MG PO (11:23)
--- NOTE | 2019-12-05 13:12 | ONC FU_ITS ---
Dr. Ruiz Patient Follow-Up Note Patient: Jay Walsh Unit #: [id number]: 1940 Dicatated By: Ish Ruiz M.D.Date of Visit:Dec 01, 2019 Onc Med Follow-up/Prog Note Chief Complaint: Chronic lymphocytic leukemia. History of Present Illness: This is a 79 year-old man with chronic leukocytic leukemia, Meza stage 0 at initial diagnosis in December 2015, but with subsequent progression to stage III. 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 He is being followed with yearly surveillance cystoscopy. In the course of having a routine surveillance cystoscopy in December 2015 he was found to have a lymphocytosis. His CBC from 01/04/2016 showed normal hemoglobin at 13.8 g with white blood cell count 26,600 and platelet count 233,000. The differential showed 60% lymphocytes. He was seen for further evaluation by Dr. Scottie Baron on 01/26/2016. A subsequent flow cytometry confirmed a monoclonal population of B lymphocytes with coexpression of CD5 and CD19, consistent with chronic lymphocytic leukemia. He had early stage disease and he was just followed on observation/expectant management. He was seen here initially on 07/30/2018. His CBC at that time showed normal hemoglobin 13.5 g with white blood cell count increased to 43,000 and platelet count normal at 165,000. His chem profile was unremarkable except for mildly elevated BUN and creatinine at 19 1.3 mg/dL. The LDH was mildly elevated at 266/225 U/L. He appeared stable clinically, and he continued on observation/expectant management. At his follow-up visit in January 2019 there was further increase in the white blood cell count to 67,000, but with his hemoglobin stable at 13.0 g and platelet count normal at 186,000. LDH was mildly elevated but also stable. As of his follow-up visit in June 2019 there was a significant increase in the white blood cell count to 102,000. His hemoglobin was slightly low at 11.9 g. Platelet count remained normal at 168,000. With the decrease in his hemoglobin, I had recommended that he start treatment with the obinutuzumab/venetoclax regimen. Due to the coronavirus pandemic, he requested to put this off until October. His other medical illnesses have been limited to hypertension and superficial bladder cancer. He had smoked in the past, but only for a period of 11 years, and he quit smoking back in 1966. INTERIM HISTORY: He began cycle 1 of obinutuzumab/venetoclax on 11/03/2019. He had no adverse effects with his initial D1/D2 infusions of obinutuzumab, and he then continued with the full dose treatment at day 8 and day 15, again with no adverse effects. At day 22 he began venetoclax on the standard dose escalation regimen. He is seen for a follow-up visit. Overall, he is feeling somewhat better since he has been on treatment, though his energy still comes and goes. He has noticed some shortness of breath and fatigue during the first day or so after his obinutuzumab infusions. However, he has normal activity. His ECOG score is 0. He has good appetite. He has no fever or night sweats. He has had no mouth sores. His breathing has otherwise been okay. He has not had any cough, and he does not complain of chest pain. He has no GI or complaints other than some constipation, which he manages adequately with senna as needed. He does have some back pain, which is chronic. He occasionally has a little numbness in his left foot. He has no other focal neurologic symptoms. He does report having easy bruising, but no other bleeding. Medications: Acetaminophen 1 Tablet (of 500 mg) Oral daily, Allopurinol 1 Tablet (of 300 mg) Oral daily, AmLODIPine Besylate 1 (10 mg) Tablet Oral daily, Aspirin 1 (81 mg) Tablet Oral daily, Claritin Tablet Oral PRN, Clotrimazole-Betamethasone (1-0.05 %) Cream Topical daily PRN, Diprolene Ointment Topical, Melatonin 1 Capsule (of 10 mg) Oral daily PRN, Metamucil Pack Oral, Multivitamin Adult 1 Tablet Oral daily, Omeprazole 1 (20 mg) Capsule Delayed Release Oral daily Allergies: Azo Tabs and Iodine. Review of Systems: Constitutional - His energy comes and goes, but he has normal activity. Appetite is good and weight is stable. No fever, night sweats, or hot flashes. ECOG score is 0, ENMT - No sinus congestion/drainage. No mouth sores. No sore throat or difficulty swallowing, Hematologic/Lymphatic - He has easy bruising. No other bleeding, Respiratory - He has had shortness of breath and fatigue for the first day or so after his treatments. His breathing is otherwise okay. No cough. No pleuritic pain or hemoptysis, Cardiovascular - No angina pain. No palpitations, Gastrointestinal - No nausea or vomiting. No heartburn or acid reflux. No diarrhea. He has some constipation, managed adequately with senna as needed. No blood in the stool or black stools, Genitourinary (M) - No dysuria or hematuria. No urinary frequency. No urgency or incontinence, Musculoskeletal - He has some back pain, Integumentary - No skin rash, Neurologic - No headache or dizziness. No numbness or tingling. No other focal neurologic symptoms, Psychiatric - No anxiety or depression. No insomnia. Vital Signs: Performed on Dec 01, 2019 10:30 Height - 72.00 in Weight - 179.0 lbs (HIGH) BSA - 2.03 sq.m BMI - 24.28 Temperature - 99.5 F (HIGH) Pulse - 83 /min Respiration - 18 /min BP - 138/64 mm(hg) O2 Sat - 98 % Pain - 0 Physical Examination: Constitutional - He looks good generally, Eyes - Sclerae nonicteric. Conjunctivae clear, ENMT - No lesions noted in the oral cavity, Hematologic/Lymphatic - No cervical, clavicular, or axillary adenopathy, Respiratory - Lungs are clear with good air movement bilaterally, Cardiovascular - Heart rhythm is regular. There is no murmur, gallop, or rub noted, Abdomen - Soft. Liver and spleen are not enlarged. There is no abdominal mass or ascites noted and there is no inguinal adenopathy, Extremities - No edema, Neurologic - No focal neurologic deficits noted. Lab/Imaging: Test performed on Dec 01, 2019 09:05 Sodium 132 mmol/L TSH 1.81 uIU/mL Potassium 3.9 mmol/L Chloride 99 mmol/L CO2 22 mmol/L Anion Gap 14.9 BUN 12 mg/dL Creatinine 1.2 mg/dL Cr Clearance (Est) 57.32 mL/min Glucose 98 mg/dL Calcium 9.3 mg/dL Protein, Total 7.1 g/dL Albumin 4.1 g/dL Globulin 3.0 g/dL Bilirubin, Total 0.7 mg/dL ALT (SGPT) 14 U/L AST (SGOT) 22 U/L Alkaline Phosphatase 63 IU/L WBC 5.3 10 3/uL RBC 3.27 10 6/uL HGB 10.0 g/dL HCT 29.8 % MCV 91.1 fL MCH 30.6 pg MCHC 33.6 g/dL RDW 16.2 % Platelet Count 225 10 3/cmm MPV 9.1 fL Neutrophils 2.1 10 3/uL Lymphocytes 2.2 10 3/uL Monocytes 0.7 10 3/uL Eosinophils 0.3 10 3/uL Basophils 0.1 10 3/uL Neutrophil % 39.2 % Lymphocyte % 40.7 % Monocyte % 12.4 % Eosinophil % 6.2 % Basophils % 1.3 % NRBC % 0 % Impression: 1. Patient with chronic lymphocytic leukemia, Meza stage 0 at initial diagnosis in December 2015, but with subsequent progression to stage III. 2. He has been followed on observation/expectant management. His other medical illnesses include: 3. Hypertension. 4. Superficial bladder cancer, currently on surveillance following TURBT and BCG therapy. During follow-up, he had a fairly rapid increase in his lymphocyte count. As of his follow-up visit in January 2019 his other blood counts had remained normal. However, by June 2019 his white count had increased significantly, to 102,000. At that point his hemoglobin had dropped to 11.9 g, consistent with Meza stage III disease. With that finding, I had recommended that he start treatment. Due to the coronavirus pandemic, he requested to put it off until October. On 11/03/2019 he began cycle 1 of treatment with the obinutuzumab/venetoclax regimen. At that point there had been been further increase in the white blood cell count to 154,000 and the hemoglobin was now down to 10.4 g. He has now completed 1 cycle of treatment. Thus far he has tolerated it very well. He is showing some symptomatic improvement, though he remains mildly anemic. He does appear to be showing a very good response, as there has been a dramatic decline in the white blood cell count. Plan: He will return next week to begin treatment with obinutuzumab in combination with venetoclax. He is starting allopurinol prophylaxis this week. Signed By: Ish Ruiz M.D. <<Signature on File>>
[2019-12-08 10:37] LABS: Basophils # 0.1 10^3/uL (0.0-0.1); Basophils % 1.3 %; Eosinophils # 0.3 10^3/uL (0.0-0.8); Eosinophils % 6.6 %; Hematocrit 31.7 % (42.0-52.0); Hemoglobin 10.5 g/dL (11.7-16.6); Lymphocytes # 1.9 10^3/uL (0.8-4.8); Lymphocytes % 41.2 %; Mean Corpuscular HGB Conc 33.1 g/dL (30.0-36.0); Mean Corpuscular Hemoglobin 30.3 pg (28.0-34.0); Mean Corpuscular Volume 91.4 fL (80-94); Mean Platelet Volume 8.9 fL (7.4-10.4); Monocytes # 0.7 10^3/uL (0.2-0.9); Monocytes % 14.3 %; Neutrophils # 1.71 10^3/uL (1.8-7.7); Neutrophils % 36.4 %; Nucleated Red Blood Cells % 0 %; Platelet Count 206 10^3/cmm (130-400); Red Blood Count 3.47 10^6/uL (4.1-5.3); Red Cell Distribution Width 15.4 % (12.1-15.1); White Blood Count 4.7 10^3/uL (4.0-10.0)
[2019-12-15 10:36] LABS: Basophils # 0.1 10^3/uL (0.0-0.1); Basophils % 1.7 %; Eosinophils # 0.3 10^3/uL (0.0-0.8); Eosinophils % 4.9 %; Hematocrit 31.5 % (42.0-52.0); Hemoglobin 10.2 g/dL (11.7-16.6); Lymphocytes # 2.4 10^3/uL (0.8-4.8); Lymphocytes % 44.7 %; Mean Corpuscular HGB Conc 32.4 g/dL (30.0-36.0); Mean Corpuscular Hemoglobin 28.6 pg (28.0-34.0); Mean Corpuscular Volume 88.2 fL (80-94); Mean Platelet Volume 9.1 fL (7.4-10.4); Monocytes # 0.7 10^3/uL (0.2-0.9); Monocytes % 12.1 %; Neutrophils # 1.95 10^3/uL (1.8-7.7); Neutrophils % 36.4 %; Nucleated Red Blood Cells % 0 %; Platelet Count 194 10^3/cmm (130-400); Red Blood Count 3.57 10^6/uL (4.1-5.3); Red Cell Distribution Width 14.6 % (12.1-15.1); White Blood Count 5.4 10^3/uL (4.0-10.0)
[2019-12-22 10:33] LABS: Basophils # 0.1 10^3/uL (0.0-0.1); Basophils % 1.3 %; Eosinophils # 0.3 10^3/uL (0.0-0.8); Eosinophils % 6.3 %; Hematocrit 32.7 % (42.0-52.0); Hemoglobin 10.5 g/dL (11.7-16.6); Lymphocytes % 42.9 %; Mean Corpuscular HGB Conc 32.1 g/dL (30.0-36.0); Mean Corpuscular Hemoglobin 27.9 pg (28.0-34.0); Mean Platelet Volume 9.2 fL (7.4-10.4); Monocytes # 0.6 10^3/uL (0.2-0.9); Neutrophils # 1.68 10^3/uL (1.8-7.7); Neutrophils % 36.3 %; Nucleated Red Blood Cells % 0 %; Platelet Count 220 10^3/cmm (130-400); Red Blood Count 3.76 10^6/uL (4.1-5.3); Red Cell Distribution Width 13.9 % (12.1-15.1); White Blood Count 4.6 10^3/uL (4.0-10.0)
== END 2019-12-26 23:59 | disposition home or self-care (01) ==
LOC: ONCMED 06:44
PROVIDERS: PCP Family Medicine; Visit Provider Internal Medicine Medical Oncology
DX: Z51.12 Encounter for antineoplastic immunotherapy (principal); C91.10 Chronic lymphocytic leukemia of B-cell type not having achieved remission; I10 Essential (primary) hypertension; G89.29 Other chronic pain; M54.9 Dorsalgia, unspecified; Z79.82 Long term (current) use of aspirin; Z87.891 Personal history of nicotine dependence; Z92.3 Personal history of irradiation; Z85.51 Personal history of malignant neoplasm of bladder
CPT/HCPCS: 80053; 84443; 85025; 96367; 96413; 96415; 99214; J1100; J1200; J7050; J9301

== ENCOUNTER 2020-01-26 05:33 | Outpatient (RCR) | payer MEDICARE, SELFPAY ==
[2019-12-29 09:22] LABS: Basophils # 0.1 10^3/uL (0.0-0.1); Basophils % 1.4 %; Eosinophils # 0.2 10^3/uL (0.0-0.8); Eosinophils % 4.5 %; Hematocrit 34.2 % (42.0-52.0); Hemoglobin 11.1 g/dL (11.7-16.6); Lymphocytes # 2.3 10^3/uL (0.8-4.8); Lymphocytes % 46.3 %; Mean Corpuscular HGB Conc 32.5 g/dL (30.0-36.0); Mean Corpuscular Hemoglobin 27.3 pg (28.0-34.0); Mean Platelet Volume 8.8 fL (7.4-10.4); Monocytes # 0.7 10^3/uL (0.2-0.9); Monocytes % 13.4 %; Neutrophils # 1.68 10^3/uL (1.8-7.7); Neutrophils % 34.2 %; Nucleated Red Blood Cells % 0 %; Platelet Count 219 10^3/cmm (130-400); Red Blood Count 4.07 10^6/uL (4.1-5.3); Red Cell Distribution Width 13.6 % (12.1-15.1); White Blood Count 4.9 10^3/uL (4.0-10.0)
[2019-12-29 09:41] LABS: Alanine Aminotransferase 13 U/L (0-41); Albumin Level 4.5 g/dL (3.5-5.2); Alkaline Phosphatase 65 IU/L (40-130); Anion Gap 13.1 (5-19); Aspartate Amino Transferase 19 U/L (0-40); Blood Urea Nitrogen 16 mg/dL (8-23); Calcium 9.4 mg/dL (8.5-10.5); Carbon Dioxide 22 mmol/L (22-29); Chloride 100 mmol/L (98-107); Globulin 2.8 g/dL (1.3-4.6); Glucose 102 mg/dL (65-115); Lactate Dehydrogenase 150 U/L (135-225); Osmolality Calculated 269 mOsm/kg (285-295); Potassium 4.1 mmol/L (3.5-5.1); Sodium 131 mmol/L (136-145); Total Bilirubin 0.6 mg/dL (0.15-1.2); Total Protein 7.3 g/dL (6.6-8.7)
[2019-12-29] MEDS: acetaminophen 325 mg Tablet 650 MG PO (11:18)
[2019-12-29] MEDS: dexamethasone 20 MG in sodium chloride 0.9% 50 ML 187 MG IV (11:18)
[2019-12-29] MEDS: sodium chloride 0.9% 500 ML 999 ML IV (12:23)
--- NOTE | 2020-01-02 17:49 | ONC FU_ITS ---
[facility] Patient Note Patient: Jay Walsh Unit #: [id number]: 1940 Dictated By: Rhett GodwinDate of Visit: Dec 29, 2019 Onc MED Follow-Up/Prog Note Chief Complaint: Chronic lymphocytic leukemia. History of Present Illness: Mr Walsh is a 79 year-old man with chronic leukocytic leukemia, Meza stage 0 at initial diagnosis in December 2015, but with subsequent progression to stage III. 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 He is being followed with yearly surveillance cystoscopy. In the course of having a routine surveillance cystoscopy in December 2015 he was found to have a lymphocytosis. His CBC from 01/04/2016 showed normal hemoglobin at 13.8 g with white blood cell count 26,600 and platelet count 233,000. The differential showed 60% lymphocytes. He was seen for further evaluation by Dr. Scottie Baron on 01/26/2016. A subsequent flow cytometry confirmed a monoclonal population of B lymphocytes with coexpression of CD5 and CD19, consistent with chronic lymphocytic leukemia. He had early stage disease and he was just followed on observation/expectant management. He was seen here initially on 07/30/2018. His CBC at that time showed normal hemoglobin 13.5 g with white blood cell count increased to 43,000 and platelet count normal at 165,000. His chem profile was unremarkable except for mildly elevated BUN and creatinine at 19 1.3 mg/dL. The LDH was mildly elevated at 266/225 U/L. He appeared stable clinically, and he continued on observation/expectant management. At his follow-up visit in January 2019 there was further increase in the white blood cell count to 67,000, but with his hemoglobin stable at 13.0 g and platelet count normal at 186,000. LDH was mildly elevated but also stable. As of his follow-up visit in June 2019 there was a significant increase in the white blood cell count to 102,000. His hemoglobin was slightly low at 11.9 g. Platelet count remained normal at 168,000. With the decrease in his hemoglobin, Dr Ruiz had recommended that he start treatment with the obinutuzumab/venetoclax regimen. Due to the coronavirus pandemic, he requested to put this off until October. His other medical illnesses have been limited to hypertension and superficial bladder cancer. He had smoked in the past, but only for a period of 11 years, and he quit smoking back in 1966. INTERIM HISTORY: He began cycle 1 of obinutuzumab/venetoclax on 11/03/2019. He had no adverse effects with his initial D1/D2 infusions of obinutuzumab, and he then continued with the full dose treatment at day 8 and day 15, again with no adverse effects. At day 22 he began venetoclax on the standard dose escalation regimen. He has tolerated it well thus far. Mr. Walsh is here today for follow-up. He is due for cycle 3 medical backslash obinutuzumab. Overall he is doing well. His activity status is normal. He states [place]. He states he has a couple more weeks reserved and that we will give him a total of 6 weeks camping [place] this [place]. He is enjoying his grandkids. He states he is eating well. He denies any mouth sores, sore throat or difficulty swallowing. He states his granddaughter recently was diagnosed with hand-foot syndrome and his hands have been itching but is had no other signs. He was instructed to call if he has symptoms or develops any further signs and we will give him some antiviral coverage. He denies any diarrhea or constipation. He states that he feels good. He is eating good. He is doing all of his ADLs without any assistance. His ECOG is 0. Past Medical History: Chronic lymphocytic leukemia History of colon polyps Hypertension Superficial bladder cancer Past Surgical History: Bilateral cataract excisions Multiple cystoscopies TURBT and BCG therapy Colonoscopy in 2018 TURP in 1993 Allergies: Azo Tabs and Iodine. Medications: Acetaminophen 1 Tablet (of 500 mg) Oral daily AmLODIPine Besylate 1 (10 mg) Tablet Oral daily Aspirin 1 (81 mg) Tablet Oral daily Claritin Tablet Oral PRN Clotrimazole-Betamethasone (1-0.05 %) Cream Topical daily PRN Melatonin 1 Capsule (of 10 mg) Oral daily PRN Metamucil Pack Oral Multivitamin Adult 1 Tablet Oral daily Omeprazole 1 (20 mg) Capsule Delayed Release Oral daily Senna S 1 Tablet (of 8.6-50 mg) Oral daily PRN Family History: Mr. Thomass mother at age 90: heart disease. Mr. Thomass father at age 78: myocardial infarction. Mr. Walsh has 3 brothers: 3 . Mr. Walsh's first brother's lung cancer. Another brother's prostate cancer. He has 1 sister who is . Father of heart attack at age 78. Mother also had heart disease, but she lived to age 90. A brother of lung cancer at age 80 and another of prostate cancer at age 70. Another brother and a sister both of heart disease. Social History: Mr. Walsh is and he is retired. Mr. Walsh quit smoking 51 years ago but had smoked 1.0 pack/day for 0 years. He has no history of drinking. Review Of Symptoms: Constitutional Denies and current fevers, chills, night sweats, excessive fatigue or weight loss. He has been active. [place]. Allergic/Immunologic No reactions. Eyes Denies significant visual changes. No diplopia. No amaurosis. ENMT Denies changes in hearing, sore throat, mouth sores, difficulty or changes in swallowing ability, and/or sinus drainage. Hematologic/Lymphatic Denies easy bruising or bleeding. The patient denies any tender or palpable lymph nodes. Respiratory Denies dyspnea on exertion, chest pain, cough or hemoptysis. Denies orthopnea. Cardiovascular Denies anginal chest pain, palpitations or orthopnea. Gastrointestinal Denies any current nausea, vomiting, diarrhea, GI bleeding, or constipation. Denies change in bowel habits and/or stool color, no heartburn or early satiety. Genitourinary (M) Denies hematuria, dysuria, increased frequency, urgency, hesitancy or incontinence. Musculoskeletal Denies joint pain, swelling or redness. No decreased range of motion. Integumentary Denies chronic rashes, inflammation, ulcerations or skin changes. Neurologic Denies headache, blurred vision, and no areas of focal weakness or numbness. Normal gait. No sensory problems. Psychiatric Denies insomnia, depression, yan or mood swings. Vital Signs: Performed on Dec 29, 2019 10:41 Height - 72.00 in Weight - 178.2 lbs (LOW) BSA - 2.03 sq.m BMI - 24.17 Temperature - 98.7 F Pulse - 72 /min Respiration - 17 /min BP - 143/67 mm(hg) (HIGH) O2 Sat - 98 % Pain - 0,0 - Fully active, able to carry on all predisease activities without restrictions. (ECOG) Physical Examination: Constitutional Alert, oriented, no acute distress. Skin pink, warm and dry. Head Normocephalic; atraumatic. Eyes Conjunctivae and sclerae are clear and without icterus. Pupils are reactive and equal. Neck Supple without masses or thyromegaly. No jugular venous distension. Hematologic/Lymphatic No petechiae or purpura. No tender or palpable lymph nodes in the cervical or supraclavicular areas. Respiratory Lungs are clear to auscultation without rhonchi or wheezing. Cardiovascular Regular rate and rhythm of heart without murmurs,clicks, gallops or rubs. Back/Spine Non-tender to palpation. Extremities No visible deformities, no cyanosis, clubbing or edema. Musculoskeletal No tenderness or swelling, normal range of motion without obvious weakness. Integumentary No rashes or lesions. Neurologic No sensory or motor deficits, normal cerebellar function, normal gait. Psychiatric Alert and oriented times three. Coherent speech. Verbalizes understanding of our discussions today. Laboratory:Test performed on Dec 29, 2019 09:10 LDH (Total) 150 U/L Sodium 131 mmol/L Potassium 4.1 mmol/L Chloride 100 mmol/L CO2 22 mmol/L Anion Gap 13.1 BUN 16 mg/dL Creatinine 1.2 mg/dL Cr Clearance (Est) 57.07 mL/min Glucose 102 mg/dL Calcium 9.4 mg/dL Protein, Total 7.3 g/dL Albumin 4.5 g/dL Globulin 2.8 g/dL Bilirubin, Total 0.6 mg/dL ALT (SGPT) 13 U/L AST (SGOT) 19 U/L Alkaline Phosphatase 65 IU/L WBC 4.9 10 3/uL RBC 4.07 10 6/uL HGB 11.1 g/dL HCT 34.2 % MCV 84.0 fL MCH 27.3 pg MCHC 32.5 g/dL RDW 13.6 % Platelet Count 219 10 3/cmm MPV 8.8 fL Neutrophils 1.68 10 3/uL Lymphocytes 2.3 10 3/uL Monocytes 0.7 10 3/uL Eosinophils 0.2 10 3/uL Basophils 0.1 10 3/uL Neutrophil % 34.2 % Lymphocyte % 46.3 % Monocyte % 13.4 % Eosinophil % 4.5 % Basophils % 1.4 % NRBC % 0 % Test performed on Dec 01, 2019 09:05 TSH 1.81 uIU/mL Test performed on Nov 10, 2019 08:41 Uric Acid 4.8 mg/dL Test performed on Oct 28, 2019 12:30 CBC Slide Review Slide Review Perform SLIDE REVIEW AGREES WITH AUTOMATED RESULTS Test performed on Sep 22, 2019 08:25 Manual Lymphs % 87 % Manual Monos % 3.0 % Manual Monocytes Abs 4.0 10 3/cmm Manual Eosinophils Abs 1.3 10 3/cmm Test performed on Aug 20, 2019 08:36 Manual Bands % 1.0 % Atypical Lymphs % 23.0 % Manual Basos % 1.0 % Metamyelocytes % 1.0 % Smudge Cells 1+ Manual Bands Abs 1.2 10 3/cmm Manual Lymphocytes Abs 97.8 10 3/cmm Manual Basophils Abs 1.2 10 3/cmm Impression: 1. Patient with chronic lymphocytic leukemia, Meza stage 0 at initial diagnosis in December 2015, but with subsequent progression to stage III. 2. He has been followed on observation/expectant management. His other medical illnesses include: 3. Hypertension. 4. Superficial bladder cancer, currently on surveillance following TURBT and BCG therapy. During follow-up, he had a fairly rapid increase in his lymphocyte count. As of his follow-up visit in January 2019 his other blood counts had remained normal. However, by June 2019 his white count had increased significantly, to 102,000. At that point his hemoglobin had dropped to 11.9 g, consistent with Meza stage III disease. With that finding, Dr Ruiz had recommended that he start treatment. Due to the coronavirus pandemic, he requested to put it off until October. On 11/03/2019 he began cycle 1 of treatment with the obinutuzumab/venetoclax regimen. At that point there had been been further increase in the white blood cell count to 154,000 and the hemoglobin was now down to 10.4 g. He has now completed 1 cycle of treatment. Thus far he has tolerated it very well. He is showing some symptomatic improvement, though he remains mildly anemic. He does appear to be showing a very good response, as there has been a dramatic decline in the white blood cell count. Mr. Walsh has now completed 2 full cycles and is tolerating venetoclax/obinutuzumab well.. Plan: 1. Proceed with cycle 3 venetoclax/Gazyva (obinutuzumab). The doses will remain the same for now. 2. He will continue the same premeds for now as this is working well for him. He may hold the Zofran he does not feel that he needs it or if he is having any constipation/headaches with it. 3. He is advised to does watch his hands as he is concerned that his granddaughter recently was diagnosed with hand-foot syndrome. He states his hands are itchy but no lesions or skin changes at this time. 4. He will continue the venetoclax at 400 mg. He started it on Sunday. We will just week check his counts weekly and if they start to drop then we can decrease his venetoclax dosing. 5. He states he does see the tire rebuilder on January [address] Linn for a scope on January 12 or 2019. 6. We will plan to see him back in 4 weeks with CBC CMP TSH. He is instructed to contact us in the interim should questions or problems arise. 7. Mr. Walsh is tolerating treatment well. Signed By: Rhett Godwin-, AOCNP Ish Ruiz MD <<Signature on File>>
[2020-01-05 10:58] LABS: Basophils # 0.1 10^3/uL (0.0-0.1); Basophils % 1.4 %; Eosinophils # 0.2 10^3/uL (0.0-0.8); Eosinophils % 3.6 %; Hematocrit 34.8 % (42.0-52.0); Hemoglobin 10.9 g/dL (11.7-16.6); Lymphocytes # 1.8 10^3/uL (0.8-4.8); Lymphocytes % 43.1 %; Mean Corpuscular HGB Conc 31.3 g/dL (30.0-36.0); Mean Corpuscular Hemoglobin 27.3 pg (28.0-34.0); Mean Corpuscular Volume 87.2 fL (80-94); Mean Platelet Volume 9.2 fL (7.4-10.4); Monocytes # 0.6 10^3/uL (0.2-0.9); Monocytes % 15.2 %; Neutrophils # 1.53 10^3/uL (1.8-7.7); Neutrophils % 36.5 %; Nucleated Red Blood Cells % 0 %; Platelet Count 193 10^3/cmm (130-400); Red Blood Count 3.99 10^6/uL (4.1-5.3); Red Cell Distribution Width 13.4 % (12.1-15.1); White Blood Count 4.2 10^3/uL (4.0-10.0)
[2020-01-05 11:16] LABS: Alanine Aminotransferase 17 U/L (0-41); Albumin Level 4.1 g/dL (3.5-5.2); Alkaline Phosphatase 56 IU/L (40-130); Anion Gap 10.9 (5-19); Aspartate Amino Transferase 17 U/L (0-40); Blood Urea Nitrogen 14 mg/dL (8-23); Calcium 8.7 mg/dL (8.5-10.5); Carbon Dioxide 24 mmol/L (22-29); Chloride 101 mmol/L (98-107); Glucose 131 mg/dL (65-115); Osmolality Calculated 272 mOsm/kg (285-295); Potassium 3.9 mmol/L (3.5-5.1); Sodium 132 mmol/L (136-145); Total Bilirubin 0.6 mg/dL (0.15-1.2); Total Protein 7.1 g/dL (6.6-8.7)
[2020-01-12 10:33] LABS: Basophils # 0.1 10^3/uL (0.0-0.1); Basophils % 1.6 %; Eosinophils # 0.1 10^3/uL (0.0-0.8); Eosinophils % 2.1 %; Hematocrit 37.2 % (42.0-52.0); Hemoglobin 11.5 g/dL (11.7-16.6); Lymphocytes # 2.2 10^3/uL (0.8-4.8); Lymphocytes % 41.7 %; Mean Corpuscular HGB Conc 30.9 g/dL (30.0-36.0); Mean Corpuscular Hemoglobin 26.7 pg (28.0-34.0); Mean Corpuscular Volume 86.5 fL (80-94); Mean Platelet Volume 9.7 fL (7.4-10.4); Monocytes # 0.6 10^3/uL (0.2-0.9); Monocytes % 11.4 %; Neutrophils # 2.22 10^3/uL (1.8-7.7); Nucleated Red Blood Cells % 0 %; Platelet Count 181 10^3/cmm (130-400); Red Cell Distribution Width 13.8 % (12.1-15.1); White Blood Count 5.2 10^3/uL (4.0-10.0)
[2020-01-12 10:55] LABS: Alanine Aminotransferase 16 U/L (0-41); Albumin Level 4.5 g/dL (3.5-5.2); Alkaline Phosphatase 64 IU/L (40-130); Anion Gap 12.1 (5-19); Aspartate Amino Transferase 21 U/L (0-40); Blood Urea Nitrogen 18 mg/dL (8-23); Calcium 8.9 mg/dL (8.5-10.5); Carbon Dioxide 24 mmol/L (22-29); Chloride 99 mmol/L (98-107); Glucose 103 mg/dL (65-115); Osmolality Calculated 269 mOsm/kg (285-295); Potassium 4.1 mmol/L (3.5-5.1); Sodium 131 mmol/L (136-145); Total Bilirubin 0.6 mg/dL (0.15-1.2); Total Protein 7.5 g/dL (6.6-8.7)
[2020-01-19 10:26] LABS: Basophils # 0.1 10^3/uL (0.0-0.1); Basophils % 1.6 %; Eosinophils # 0.2 10^3/uL (0.0-0.8); Eosinophils % 4.6 %; Hematocrit 36.1 % (42.0-52.0); Hemoglobin 11.8 g/dL (11.7-16.6); Lymphocytes # 2.2 10^3/uL (0.8-4.8); Lymphocytes % 51.4 %; Mean Corpuscular HGB Conc 32.7 g/dL (30.0-36.0); Mean Corpuscular Hemoglobin 26.9 pg (28.0-34.0); Mean Corpuscular Volume 82.2 fL (80-94); Mean Platelet Volume 9.4 fL (7.4-10.4); Monocytes # 0.6 10^3/uL (0.2-0.9); Monocytes % 13.8 %; Neutrophils # 1.23 10^3/uL (1.8-7.7); Neutrophils % 28.4 %; Nucleated Red Blood Cells % 0 %; Platelet Count 183 10^3/cmm (130-400); Red Blood Count 4.39 10^6/uL (4.1-5.3); Red Cell Distribution Width 13.8 % (12.1-15.1); White Blood Count 4.3 10^3/uL (4.0-10.0)
[2020-01-19 10:47] LABS: Alanine Aminotransferase 15 U/L (0-41); Albumin Level 4.4 g/dL (3.5-5.2); Alkaline Phosphatase 70 IU/L (40-130); Anion Gap 12.6 (5-19); Aspartate Amino Transferase 18 U/L (0-40); Blood Urea Nitrogen 19 mg/dL (8-23); Calcium 8.8 mg/dL (8.5-10.5); Carbon Dioxide 24 mmol/L (22-29); Chloride 99 mmol/L (98-107); Globulin 3.4 g/dL (1.3-4.6); Glucose 107 mg/dL (65-115); Osmolality Calculated 271 mOsm/kg (285-295); Potassium 3.6 mmol/L (3.5-5.1); Sodium 132 mmol/L (136-145); Total Bilirubin 0.6 mg/dL (0.15-1.2); Total Protein 7.8 g/dL (6.6-8.7)
[2020-01-26 09:03] LABS: Basophils # 0.1 10^3/uL (0.0-0.1); Basophils % 1.7 %; Eosinophils # 0.2 10^3/uL (0.0-0.8); Eosinophils % 4.4 %; Hematocrit 36.8 % (42.0-52.0); Hemoglobin 11.7 g/dL (11.7-16.6); Lymphocytes # 2.4 10^3/uL (0.8-4.8); Lymphocytes % 49.6 %; Mean Corpuscular HGB Conc 31.8 g/dL (30.0-36.0); Mean Corpuscular Hemoglobin 25.7 pg (28.0-34.0); Mean Corpuscular Volume 80.7 fL (80-94); Mean Platelet Volume 9.4 fL (7.4-10.4); Monocytes # 0.7 10^3/uL (0.2-0.9); Monocytes % 14.1 %; Neutrophils # 1.44 10^3/uL (1.8-7.7); Neutrophils % 30.2 %; Nucleated Red Blood Cells % 0 %; Platelet Count 196 10^3/cmm (130-400); Red Blood Count 4.56 10^6/uL (4.1-5.3); White Blood Count 4.8 10^3/uL (4.0-10.0)
[2020-01-26 09:28] LABS: Alanine Aminotransferase 16 U/L (0-41); Albumin Level 4.6 g/dL (3.5-5.2); Alkaline Phosphatase 71 IU/L (40-130); Anion Gap 13.8 (5-19); Aspartate Amino Transferase 19 U/L (0-40); Blood Urea Nitrogen 14 mg/dL (8-23); Calcium 9.2 mg/dL (8.5-10.5); Carbon Dioxide 23 mmol/L (22-29); Chloride 101 mmol/L (98-107); Globulin 3.1 g/dL (1.3-4.6); Glucose 109 mg/dL (65-115); Osmolality Calculated 275 mOsm/kg (285-295); Potassium 3.8 mmol/L (3.5-5.1); Sodium 134 mmol/L (136-145); Total Bilirubin 0.5 mg/dL (0.15-1.2); Total Protein 7.7 g/dL (6.6-8.7)
[2020-01-26] MEDS: acetaminophen 325 mg Tablet 650 MG PO (10:35)
[2020-01-26 10:42] LABS: Iron 39 ug/dL (59-158); Percent Saturation 11.3 % (20-50); Total Iron Binding Capacity 345 mcg/dl; Unsaturated Iron Binding 306 ug/dL (112-347)
[2020-01-26] MEDS: dexamethasone 20 MG in sodium chloride 0.9% 50 ML 187 MG IV (10:55)
[2020-01-26] MEDS: sodium chloride 0.9% 500 ML 999 ML IV (10:55)
--- NOTE | 2020-01-26 13:06 | ONC FU_ITS ---
Dr. Ruiz Patient Follow-Up Note Patient: Jay Walsh Unit #: [id number]: [id number] Dicatated By: Ish Ruiz M.D.Date of Visit:Jan 26, 2020 Onc Med Follow-up/Prog Note Chief Complaint: Chronic lymphocytic leukemia. History of Present Illness: This is a 79 year-old man with chronic leukocytic leukemia, Meza stage 0 at initial diagnosis in December 2015, but with subsequent progression to stage III. 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 He is being followed with yearly surveillance cystoscopy. In the course of having a routine surveillance cystoscopy in December 2015 he was found to have a lymphocytosis. His CBC from 01/04/2016 showed normal hemoglobin at 13.8 g with white blood cell count 26,600 and platelet count 233,000. The differential showed 60% lymphocytes. He was seen for further evaluation by Dr. Scottie Baron on 01/26/2016. A subsequent flow cytometry confirmed a monoclonal population of B lymphocytes with coexpression of CD5 and CD19, consistent with chronic lymphocytic leukemia. He had early stage disease and he was just followed on observation/expectant management. He was seen here initially on 07/30/2018. His CBC at that time showed normal hemoglobin 13.5 g with white blood cell count increased to 43,000 and platelet count normal at 165,000. His chem profile was unremarkable except for mildly elevated BUN and creatinine at 19 1.3 mg/dL. The LDH was mildly elevated at 266/225 U/L. He appeared stable clinically, and he continued on observation/expectant management. At his follow-up visit in January 2019 there was further increase in the white blood cell count to 67,000, but with his hemoglobin stable at 13.0 g and platelet count normal at 186,000. LDH was mildly elevated but also stable. As of his follow-up visit in June 2019 there was a significant increase in the white blood cell count to 102,000. His hemoglobin was slightly low at 11.9 g. Platelet count remained normal at 168,000. With the decrease in his hemoglobin, I had recommended that he start treatment with the obinutuzumab/venetoclax regimen. Due to the coronavirus pandemic, he requested to put this off until October. His other medical illnesses have been limited to hypertension and superficial bladder cancer. He had smoked in the past, but only for a period of 11 years, and he quit smoking back in 1966. INTERIM HISTORY: He began cycle 1 of obinutuzumab/venetoclax on 11/03/2019. He had no adverse effects with his initial day1/day2 infusions of obinutuzumab, and he then continued with the full dose treatment at day 8 and day 15, again with no adverse effects. At day 22 he began venetoclax on the standard dose escalation regimen. He continued with cycle 2 of obinutuzumab on 12/01/2019 and with cycle 3 on 12/29/2019. He has been showing a very good clinical response with decrease lymphocyte count and gradual improvement in his anemia. He is seen for a scheduled visit. He has been feeling good generally. He says his energy is a lot better now and is pretty much back to normal activity. He has continued to tolerate the venetoclax at 400 mg daily with no adverse effects. He indicates that he had a surveillance cystoscopy 2 weeks ago, and he apparently was found to have a new bladder cancer. He is being scheduled for TURBT. He has good appetite. He has no fever or night sweats. He does not complain of shortness of breath, cough, or chest pain. He has some mild indigestion and he also has mild constipation, which she manages with Senokot as needed. He has some generalized joint stiffness and he also has some back trouble. He has no focal neurologic symptoms. Medications: Acetaminophen 1 Tablet (of 500 mg) Oral daily, AmLODIPine Besylate 1 (10 mg) Tablet Oral daily, Aspirin 1 (81 mg) Tablet Oral daily, Claritin Tablet Oral PRN, Clotrimazole-Betamethasone (1-0.05 %) Cream Topical daily PRN, Melatonin 1 Capsule (of 10 mg) Oral daily PRN, Metamucil Pack Oral, Multivitamin Adult 1 Tablet Oral daily, Omeprazole 1 (20 mg) Capsule Delayed Release Oral daily, Senna S 1 Tablet (of 8.6-50 mg) Oral daily PRN Allergies: Azo Tabs and Iodine. Review of Systems: Constitutional - He feels like he has back to his normal energy level and has normal activity without restrictions. His appetite is good and his weight is up a few pounds. No fever, night sweats, or hot flashes. ECOG score is 0, ENMT - He has seasonal allergies. No mouth sores. No sore throat or difficulty swallowing, Hematologic/Lymphatic - He bruises easily, Respiratory - No shortness of breath. No cough. No pleuritic pain or hemoptysis, Cardiovascular - No angina pain. No palpitations, Gastrointestinal - No nausea or vomiting. No heartburn or acid reflux. No diarrhea or constipation. No blood in the stool or black stools, Genitourinary (M) - No dysuria or hematuria. No urinary frequency. No urgency or incontinence. He recently had evaluation with his Urologist and had a scope performed and they found a small tumor. Patient reports that he is to be scheduled for removal of tumor, Musculoskeletal - He has generalized joint stiffness. He also has some back pain, Integumentary - No skin complications, Neurologic - No headache or dizziness. No numbness or tingling. No other focal neurologic symptoms, Psychiatric - No anxiety or depression. He takes Melatonin for sleep. Vital Signs: Performed on Jan 26, 2020 09:59 Height - 72.00 in Weight - 180.8 lbs (HIGH) BSA - 2.04 sq.m BMI - 24.52 Temperature - 98.2 F (LOW) Pulse - 75 /min Respiration - 20 /min BP - 149/65 mm(hg) (HIGH) O2 Sat - 99 % Pain - 0 Physical Examination: Constitutional - He looks good generally, Eyes - Sclerae nonicteric. Conjunctivae clear, ENMT - No lesions noted in the oral cavity, Hematologic/Lymphatic - No cervical, clavicular, or axillary adenopathy, Respiratory - Lungs are clear with good air movement bilaterally, Cardiovascular - Heart rhythm is regular. There is no murmur, gallop, or rub noted, Abdomen - Soft. Liver and spleen are not enlarged. There is no abdominal mass or ascites noted and there is no inguinal adenopathy, Extremities - No edema, Neurologic - No focal neurologic deficits noted. Lab/Imaging: Test performed on Jan 26, 2020 08:40 Iron 39 mcg/dL Sodium 134 mmol/L Iron Binding Capacity (TIBC) 345 mcg/dl Potassium 3.8 mmol/L % Iron Saturation 11.3 % Chloride 101 mmol/L CO2 23 mmol/L UIBC 306 mcg/dL Anion Gap 13.8 BUN 14 mg/dL Creatinine 1.1 mg/dL Cr Clearance (Est) 63.17 mL/min Glucose 109 mg/dL Calcium 9.2 mg/dL Protein, Total 7.7 g/dL Albumin 4.6 g/dL Globulin 3.1 g/dL Bilirubin, Total 0.5 mg/dL ALT (SGPT) 16 U/L AST (SGOT) 19 U/L Alkaline Phosphatase 71 IU/L WBC 4.8 10 3/uL RBC 4.56 10 6/uL HGB 11.7 g/dL HCT 36.8 % MCV 80.7 fL MCH 25.7 pg MCHC 31.8 g/dL RDW 14.0 % Platelet Count 196 10 3/cmm MPV 9.4 fL Neutrophils 1.44 10 3/uL Lymphocytes 2.4 10 3/uL Monocytes 0.7 10 3/uL Eosinophils 0.2 10 3/uL Basophils 0.1 10 3/uL Neutrophil % 30.2 % Lymphocyte % 49.6 % Monocyte % 14.1 % Eosinophil % 4.4 % Basophils % 1.7 % NRBC % 0 % Impression: 1. Patient with chronic lymphocytic leukemia, Meza stage 0 at initial diagnosis in December 2015, but with subsequent progression to stage III. 2. He has been followed on observation/expectant management. His other medical illnesses include: 3. Hypertension. 4. Superficial bladder cancer, currently on surveillance following TURBT and BCG therapy. During follow-up, he had a fairly rapid increase in his lymphocyte count. As of his follow-up visit in January 2019 his other blood counts had remained normal. However, by June 2019 his white count had increased significantly, to 102,000. At that point his hemoglobin had dropped to 11.9 g, consistent with Meza stage III disease. With that finding, I had recommended that he start treatment. Due to the coronavirus pandemic, he requested to put it off until October. On 11/03/2019 he began cycle 1 of treatment with the obinutuzumab/venetoclax regimen. He tolerated the initial infusions of obinutuzumab well and he also tolerated the venetoclax dose escalation with no adverse effects. He has now completed 3 cycles of obinutuzumab and thus far he continues to tolerate the venetoclax at 400 mg daily. He is showing a very good clinical response. He is still mildly anemic, but his red cell indices are hypochromic/microcytic and his serum iron studies are consistent with iron deficiency. Plan: He will continue with cycle 4 of obinutuzumab and he will continue venetoclax 400 mg daily. He will now start oral iron supplementation with ferrous sulfate 325 mg daily. I did suggest that he follow-up with Dr. Cevallos for further GI evaluation. He also is continuing follow-up with his urologist for the bladder cancer. He returns here in 4 weeks. Signed By: Ish Ruiz M.D. <<Signature on File>>
== END 2020-01-26 23:59 | disposition home or self-care (01) ==
LOC: ONCMED 05:33
PROVIDERS: Nurse Practitioner; PCP Family Medicine; Visit Provider Internal Medicine Medical Oncology
DX: Z51.11 Encounter for antineoplastic chemotherapy (principal); C91.10 Chronic lymphocytic leukemia of B-cell type not having achieved remission; D41.4 Neoplasm of uncertain behavior of bladder; I10 Essential (primary) hypertension
CPT/HCPCS: 36415; 80053; 83540; 83550; 83615; 85025; 96367; 96413; 96415; 99214; J1100; J1200; J7040; J7050; J9301

== ENCOUNTER 2020-02-23 06:03 | Outpatient (RCR) | payer MEDICARE, SELFPAY ==
[2020-02-23 09:26] LABS: Basophils # 0.1 10^3/uL (0.0-0.1); Basophils % 1.1 %; Eosinophils # 0.3 10^3/uL (0.0-0.8); Eosinophils % 4.3 %; Hematocrit 41.4 % (42.0-52.0); Hemoglobin 13.7 g/dL (11.7-16.6); Lymphocytes # 2.1 10^3/uL (0.8-4.8); Lymphocytes % 33.3 %; Mean Corpuscular HGB Conc 33.1 g/dL (30.0-36.0); Mean Corpuscular Hemoglobin 26.3 pg (28.0-34.0); Mean Corpuscular Volume 79.6 fL (80-94); Mean Platelet Volume 9.7 fL (7.4-10.4); Monocytes % 15.2 %; Neutrophils # 2.84 10^3/uL (1.8-7.7); Neutrophils % 45.6 %; Nucleated Red Blood Cells % 0 %; Platelet Count 224 10^3/cmm (130-400); Red Cell Distribution Width 16.1 % (12.1-15.1); White Blood Count 6.2 10^3/uL (4.0-10.0)
[2020-02-23 09:43] LABS: Alanine Aminotransferase 15 U/L (0-41); Albumin Level 4.5 g/dL (3.5-5.2); Alkaline Phosphatase 71 IU/L (40-130); Anion Gap 13.7 (5-19); Aspartate Amino Transferase 17 U/L (0-40); Blood Urea Nitrogen 16 mg/dL (8-23); Calcium 9.5 mg/dL (8.5-10.5); Carbon Dioxide 22 mmol/L (22-29); Chloride 102 mmol/L (98-107); Globulin 3.1 g/dL (1.3-4.6); Glucose 97 mg/dL (65-115); Lactate Dehydrogenase 152 U/L (135-225); Osmolality Calculated 279 mOsm/kg (285-295); Potassium 3.7 mmol/L (3.5-5.1); Sodium 134 mmol/L (136-145); Total Bilirubin 0.6 mg/dL (0.15-1.2); Total Protein 7.6 g/dL (6.6-8.7)
[2020-02-23] MEDS: sodium chloride 0.9% 500 ML 999 ML IV (11:50)
[2020-02-23] MEDS: acetaminophen 325 mg Tablet 650 MG PO (11:50)
[2020-02-23] MEDS: dexamethasone 20 MG in sodium chloride 0.9% 50 ML 187 MG IV (11:55)
--- NOTE | 2020-02-29 20:10 | ONC FU_ITS ---
[facility] Patient Note Patient: Jay Walsh Unit #: [id number]: [id number] Dictated By: Rhett GodwinDate of Visit: Feb 23, 2020 Onc MED Follow-Up/Prog Note Chief Complaint: Chronic lymphocytic leukemia. History of Present Illness: Mr Walsh is a 79 year-old man with chronic leukocytic leukemia, Meza stage 0 at initial diagnosis in December 2015, but with subsequent progression to stage III. 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 He is being followed with yearly surveillance cystoscopy. In the course of having a routine surveillance cystoscopy in December 2015 he was found to have a lymphocytosis. His CBC from 01/04/2016 showed normal hemoglobin at 13.8 g with white blood cell count 26,600 and platelet count 233,000. The differential showed 60% lymphocytes. He was seen for further evaluation by Dr. Scottie Baron on 01/26/2016. A subsequent flow cytometry confirmed a monoclonal population of B lymphocytes with coexpression of CD5 and CD19, consistent with chronic lymphocytic leukemia. He had early stage disease and he was just followed on observation/expectant management. He was seen here initially on 07/30/2018. His CBC at that time showed normal hemoglobin 13.5 g with white blood cell count increased to 43,000 and platelet count normal at 165,000. His chem profile was unremarkable except for mildly elevated BUN and creatinine at 19 1.3 mg/dL. The LDH was mildly elevated at 266/225 U/L. He appeared stable clinically, and he continued on observation/expectant management. At his follow-up visit in January 2019 there was further increase in the white blood cell count to 67,000, but with his hemoglobin stable at 13.0 g and platelet count normal at 186,000. LDH was mildly elevated but also stable. As of his follow-up visit in June 2019 there was a significant increase in the white blood cell count to 102,000. His hemoglobin was slightly low at 11.9 g. Platelet count remained normal at 168,000. With the decrease in his hemoglobin, Dr Ruiz had recommended that he start treatment with the obinutuzumab/venetoclax regimen. Due to the coronavirus pandemic, he requested to put this off until October. His other medical illnesses have been limited to hypertension and superficial bladder cancer. He had smoked in the past, but only for a period of 11 years, and he quit smoking back in 1966. INTERIM HISTORY: He began cycle 1 of obinutuzumab/venetoclax on 11/03/2019. He had no adverse effects with his initial day1/day2 infusions of obinutuzumab, and he then continued with the full dose treatment at day 8 and day 15, again with no adverse effects. At day 22 he began venetoclax on the standard dose escalation regimen. He continued with cycle 2 of obinutuzumab on 12/01/2019 and with cycle 3 on 12/29/2019. He has been showing a very good clinical response with decrease lymphocyte count and gradual improvement in his anemia. He is seen for a scheduled visit. He is due for cycle 5 obinutuzumab today. He reports that he did have bladder surgery/biopsy and was discharged from [facility] on February 20, 2020. He denies any hematuria. He has had some surgery related soreness but states overall he is doing better. He is scheduled for upper and lower endoscopy next week. He denies any new concerns today. He states overall he feels good. He continues to be active around the house. He is slowed down a little with surgery but states that prior to the surgery/biopsy on Sunday that he has been fishing and camping and staying very active with his family and grandkids. He denies any fever or chills. He recently did have negative COVID testing prior to his bladder surgery. He denies any known COVID exposure or any COVID symptoms. His ECOG is 1 due to recent surgery. Past Medical History: Chronic lymphocytic leukemia History of colon polyps Hypertension Superficial bladder cancer Past Surgical History: Bilateral cataract excisions Multiple cystoscopies Tumor removal from the bladder TURBT and BCG therapy Colonoscopy in 2018 TURP in 1993 Allergies: Azo Tabs and Iodine. Medications: Acetaminophen 1 Tablet (of 500 mg) Oral daily AmLODIPine Besylate 1 (10 mg) Tablet Oral daily Aspirin 1 (81 mg) Tablet Oral daily Claritin Tablet Oral PRN Clotrimazole-Betamethasone (1-0.05 %) Cream Topical daily PRN Melatonin 1 Capsule (of 10 mg) Oral daily PRN Metamucil Pack Oral Multivitamin Adult 1 Tablet Oral daily Omeprazole 1 (20 mg) Capsule Delayed Release Oral daily Senna S 1 Tablet (of 8.6-50 mg) Oral daily PRN Family History: Mr. Walsh's mother at age 90: heart disease. Mr. Walsh's father at age 78: myocardial infarction. Mr. Walsh has 3 brothers: 3 . Mr. Walsh's first brother's lung cancer. Another brother's prostate cancer. He has 1 sister who is . Father of heart attack at age 78. Mother also had heart disease, but she lived to age 90. A brother of lung cancer at age 80 and another of prostate cancer at age 70. Another brother and a sister both of heart disease. Social History: Mr. Walsh is and he is retired. Mr. Walsh quit smoking 52 years ago but had smoked 1.0 pack/day for 0 years. He has no history of drinking. Review Of Symptoms: Constitutional Denies and current fevers, chills, night sweats, excessive fatigue or weight loss. He has been active. He states his had a little abdominal/bladder soreness from his biopsy last week. He was discharged from the hospital on Sunday. Allergic/Immunologic No reactions. Eyes Denies significant visual changes. No diplopia. No amaurosis. ENMT Denies changes in hearing, sore throat, mouth sores, difficulty or changes in swallowing ability, and/or sinus drainage. Hematologic/Lymphatic Denies easy bruising or bleeding. The patient denies any tender or palpable lymph nodes. Respiratory Denies dyspnea on exertion, chest pain, cough or hemoptysis. Denies orthopnea. Cardiovascular Denies anginal chest pain, palpitations or orthopnea. Gastrointestinal Denies any current nausea, vomiting, diarrhea, GI bleeding, or constipation. Denies change in bowel habits and/or stool color, no heartburn or early satiety. Genitourinary (M) Denies hematuria, dysuria, increased frequency, urgency, hesitancy or incontinence. Musculoskeletal Denies joint pain, swelling or redness. No decreased range of motion. Integumentary Denies chronic rashes, inflammation, ulcerations or skin changes. Neurologic Denies headache, blurred vision, and no areas of focal weakness or numbness. Normal gait. No sensory problems. Psychiatric Denies insomnia, depression, yan or mood swings. Vital Signs: Performed on Feb 23, 2020 11:06 Height - 72.00 in Weight - 180.0 lbs (LOW) BSA - 2.04 sq.m BMI - 24.41 Temperature - 98.1 F (LOW) Pulse - 74 /min Respiration - 18 /min BP - 139/67 mm(hg) O2 Sat - 99 % Pain - 0,1 - No physically strenuous activity, but ambulatory and able to carry out light or sedentary work (e.g. office work, light house work). (ECOG) Physical Examination: Constitutional Alert, oriented, no acute distress. Skin pink, warm and dry. Head Normocephalic; atraumatic. Eyes Conjunctivae and sclerae are clear and without icterus. Pupils are reactive and equal. Neck Supple without masses or thyromegaly. No jugular venous distension. Hematologic/Lymphatic No petechiae or purpura. No tender or palpable lymph nodes in the cervical or supraclavicular areas. Respiratory Lungs are clear to auscultation without rhonchi or wheezing. Cardiovascular Regular rate and rhythm of heart without murmurs,clicks, gallops or rubs. Back/Spine Non-tender to palpation. Extremities No visible deformities, no cyanosis, clubbing or edema. Musculoskeletal No tenderness or swelling, normal range of motion without obvious weakness. Integumentary No rashes or lesions. Neurologic No sensory or motor deficits, normal cerebellar function, normal gait. Psychiatric Alert and oriented times three. Coherent speech. Verbalizes understanding of our discussions today. Laboratory:Test performed on Feb 23, 2020 09:15 LDH (Total) 152 U/L Sodium 134 mmol/L Potassium 3.7 mmol/L Chloride 102 mmol/L CO2 22 mmol/L Anion Gap 13.7 BUN 16 mg/dL Creatinine 1.1 mg/dL Cr Clearance (Est) 62.8900 mL/min Glucose 97 mg/dL Osmolality - Calculated 279 mOsm/kg Calcium 9.5 mg/dL Protein, Total 7.6 g/dL Albumin 4.5 g/dL Globulin 3.1 g/dL Bilirubin, Total 0.6 mg/dL ALT (SGPT) 15 U/L AST (SGOT) 17 U/L Alkaline Phosphatase 71 IU/L WBC 6.2 10 3/uL RBC 5.20 10 6/uL HGB 13.7 g/dL HCT 41.4 % MCV 79.6 fL MCH 26.3 pg MCHC 33.1 g/dL RDW 16.1 % Platelet Count 224 10 3/cmm MPV 9.7 fL Neutrophils 2.84 10 3/uL Lymphocytes 2.1 10 3/uL Monocytes 1.0 10 3/uL Eosinophils 0.3 10 3/uL Basophils 0.1 10 3/uL Neutrophil % 45.6 % Lymphocyte % 33.3 % Monocyte % 15.2 % Eosinophil % 4.3 % Basophils % 1.1 % NRBC % 0 % Impression: 1. Patient with chronic lymphocytic leukemia, Meza stage 0 at initial diagnosis in December 2015, but with subsequent progression to stage III. 2. He has been followed on observation/expectant management. His other medical illnesses include: 3. Hypertension. 4. Superficial bladder cancer, currently on surveillance following TURBT and BCG therapy. During follow-up, he had a fairly rapid increase in his lymphocyte count. As of his follow-up visit in January 2019 his other blood counts had remained normal. However, by June 2019 his white count had increased significantly, to 102,000. At that point his hemoglobin had dropped to 11.9 g, consistent with Meza stage III disease. With those findings, Dr Ruiz had recommended that he start treatment. Due to the coronavirus pandemic, he requested to put it off until October. On 11/03/2019 he began cycle 1 of treatment with the obinutuzumab/venetoclax regimen. He tolerated the initial infusions of obinutuzumab well and he also tolerated the venetoclax dose escalation with no adverse effects. He has now completed 3 cycles of obinutuzumab and thus far he continues to tolerate the venetoclax at 400 mg daily. He is showing a very good clinical response. He was mildly anemic, but his red cell indices were hypochromic/microcytic and his serum iron studies were consistent with iron deficiency. He is taking oral iron replacement and his anemia has corrected as of his labs today. Plan: 1. Proceed with cycle 5 venetoclax (400 mg orally daily)/Gazyva (obinutuzumab). The doses will remain the same for now. 2. He will continue the same premeds for now as this is working well for him. He may hold the Zofran he does not feel that he needs it or if he is having any constipation/headaches with it. 3. Labs from today were reviewed in detail and discussed with Mr. Walsh and a copy was given to him WBC 6.2, hemoglobin 13.7, platelets 224,000 ANC is 20. Creatinine 1.1 random glucose 97 LFTs are normal LDH is normal at 152. Creatinine is 1.1 which is stable. 4. He is scheduled for upper and lower endoscopies with Dr. Cummings next week in [place]. 5. He had bladder biopsy @ [facility] on and the results pending. He has tolerated the procedure well and requests to proceed with treatment todday. 6. We will plan to see him back in 4 weeks with CBC CMP TSH. He is instructed to contact us in the interim should questions or problems arise. 7. Mr. Walsh is tolerating treatment well. Signed By: Rhett Godwin-, [facility] Ish Ruiz MD <<Signature on File>>
== END 2020-02-25 23:59 | disposition home or self-care (01) ==
LOC: ONCMED 06:03
PROVIDERS: PCP Family Medicine; Visit Provider Nurse Practitioner
DX: Z51.11 Encounter for antineoplastic chemotherapy (principal); C91.10 Chronic lymphocytic leukemia of B-cell type not having achieved remission; I10 Essential (primary) hypertension; Z85.51 Personal history of malignant neoplasm of bladder; Z79.899 Other long term (current) drug therapy
CPT/HCPCS: 80053; 83615; 85025; 96367; 96413; 96415; 99214; J1100; J1200; J7040; J7050; J9301

== ENCOUNTER 2020-03-22 06:07 | Outpatient (RCR) | payer MEDICARE, SELFPAY ==
[2020-03-22 09:31] LABS: Basophils # 0.1 10^3/uL (0.0-0.1); Eosinophils % 0.5 %; Hematocrit 41.2 % (42.0-52.0); Hemoglobin 13.9 g/dL (11.7-16.6); Lymphocytes # 2.2 10^3/uL (0.8-4.8); Lymphocytes % 36.5 %; Mean Corpuscular HGB Conc 33.7 g/dL (30.0-36.0); Mean Corpuscular Hemoglobin 26.8 pg (28.0-34.0); Mean Corpuscular Volume 79.5 fL (80-94); Mean Platelet Volume 9.1 fL (7.4-10.4); Monocytes # 0.8 10^3/uL (0.2-0.9); Neutrophils # 2.85 10^3/uL (1.8-7.7); Neutrophils % 48.3 %; Nucleated Red Blood Cells % 0 %; Platelet Count 207 10^3/cmm (130-400); Red Blood Count 5.18 10^6/uL (4.1-5.3); Red Cell Distribution Width 18.8 % (12.1-15.1); White Blood Count 5.9 10^3/uL (4.0-10.0)
[2020-03-22 10:00] LABS: Alanine Aminotransferase 23 U/L (0-41); Albumin Level 4.3 g/dL (3.5-5.2); Alkaline Phosphatase 107 IU/L (40-130); Anion Gap 12.6 (5-19); Aspartate Amino Transferase 20 U/L (0-40); Blood Urea Nitrogen 15 mg/dL (8-23); Calcium 9.9 mg/dL (8.5-10.5); Carbon Dioxide 26 mmol/L (22-29); Chloride 99 mmol/L (98-107); Glucose 114 mg/dL (65-115); Osmolality Calculated 280 mOsm/kg (285-295); Potassium 3.6 mmol/L (3.5-5.1); Sodium 134 mmol/L (136-145); Thyroid Stimulating Hormone 2.39 uIU/mL (0.27-4.20); Total Protein 7.3 g/dL (6.6-8.7)
[2020-03-22 11:13] LABS: Iron 183 ug/dL (59-158); Percent Saturation 62.8 % (20-50); Total Iron Binding Capacity 291 mcg/dl; Unsaturated Iron Binding 108 ug/dL (112-347)
[2020-03-22] MEDS: acetaminophen 325 mg Tablet 650 MG PO (11:20)
[2020-03-22] MEDS: sodium chloride 0.9% 500 ML 999 ML IV (11:22)
[2020-03-22] MEDS: dexamethasone 20 MG in sodium chloride 0.9% 50 ML 187 MG IV (11:22)
--- NOTE | 2020-03-26 16:13 | ONC FU_ITS ---
Dr. Ruiz Patient Follow-Up Note Patient: Jay Walsh Unit #: [id number]: 1940 Dicatated By: Ish Ruiz M.D.Date of Visit:Mar 22, 2020 Onc Med Follow-up/Prog Note Chief Complaint: Chronic lymphocytic leukemia. History of Present Illness: Mr Waslh is a 79 year-old man with chronic leukocytic leukemia, Meza stage 0 at initial diagnosis in December 2015, but with subsequent progression to stage III. 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 He is being followed with yearly surveillance cystoscopy. In the course of having a routine surveillance cystoscopy in December 2015 he was found to have a lymphocytosis. His CBC from 01/04/2016 showed normal hemoglobin at 13.8 g with white blood cell count 26,600 and platelet count 233,000. The differential showed 60% lymphocytes. He was seen for further evaluation by Dr. Scottie Baron on 01/26/2016. A subsequent flow cytometry confirmed a monoclonal population of B lymphocytes with coexpression of CD5 and CD19, consistent with chronic lymphocytic leukemia. He had early stage disease and he was just followed on observation/expectant management. He was seen here initially on 07/30/2018. His CBC at that time showed normal hemoglobin 13.5 g with white blood cell count increased to 43,000 and platelet count normal at 165,000. His chem profile was unremarkable except for mildly elevated BUN and creatinine at 19 1.3 mg/dL. The LDH was mildly elevated at 266/225 U/L. He appeared stable clinically, and he continued on observation/expectant management. At his follow-up visit in January 2019 there was further increase in the white blood cell count to 67,000, but with his hemoglobin stable at 13.0 g and platelet count normal at 186,000. LDH was mildly elevated but also stable. As of his follow-up visit in June 2019 there was a significant increase in the white blood cell count to 102,000. His hemoglobin was slightly low at 11.9 g. Platelet count remained normal at 168,000. With the decrease in his hemoglobin, Dr Ruiz had recommended that he start treatment with the obinutuzumab/venetoclax regimen. Due to the coronavirus pandemic, he requested to put this off until October. His other medical illnesses have been limited to hypertension and superficial bladder cancer. He had smoked in the past, but only for a period of 11 years, and he quit smoking back in 1966. INTERIM HISTORY: He began cycle 1 of obinutuzumab/venetoclax on 11/03/2019. He had no adverse effects with his initial day1/day2 infusions of obinutuzumab, and he then continued with the full dose treatment at day 8 and day 15, again with no adverse effects. At day 22 he began venetoclax on the standard dose escalation regimen. He continued with cycle 2 of obinutuzumab on 12/01/2019 and with cycle 3 on 12/29/2019. He had a very good clinical response with decrease lymphocyte count and gradual improvement in his anemia. He was unable to escalate the venetoclax dosage to 400 mg daily, and he was able to continue obinutuzumab on a 28-day schedule. He completed his 5th cycle on 02/23/2020. Subsequent to that treatment he had a scheduled surveillance cystoscopy with his urologist. He was found to have recurrence of superficial bladder cancer, and the has now been recommended to undergo a course of intravesical mitomycin-C. He is seen for a scheduled visit. He has been feeling good generally. He has good energy and activity tolerance. His ECOG score is 0. Appetite is good. He has no fever or night sweats. He does not complain of shortness of breath, cough, or chest pain. He currently has no GI complaints. Bowel function is adequate with senna. His colonoscopy apparently did show some polyps. His urination is slow, but he has no other bladder symptoms. He has no significant joint or bone pain. He does not complain of headache or dizziness. He has no focal neurologic symptoms. Medications: Acetaminophen 1 Tablet (of 500 mg) Oral daily, AmLODIPine Besylate 1 (10 mg) Tablet Oral daily, Aspirin 1 (81 mg) Tablet Oral daily, Claritin Tablet Oral PRN, Clotrimazole-Betamethasone (1-0.05 %) Cream Topical daily PRN, Melatonin 1 Capsule (of 10 mg) Oral daily PRN, Metamucil Pack Oral, Multivitamin Adult 1 Tablet Oral daily, Omeprazole 1 (20 mg) Capsule Delayed Release Oral daily, Senna S 1 Tablet (of 8.6-50 mg) Oral daily PRN Allergies: Azo Tabs and Iodine. Review of Systems: Constitutional - He has been feeling good generally. He has good energy/activity tolerance. Appetite is good and weight is stable. No fever, night sweats, or hot flashes. ECOG score is 0, ENMT - He complains that his nose runs occasionally. Sometimes has soreness in his mouth, that is associated with his dentures. No sore throat or difficulty swallowing, Hematologic/Lymphatic - He bruises easily, Respiratory - No shortness of breath. No cough. No pleuritic pain or hemoptysis, Cardiovascular - No angina pain. No palpitations, Gastrointestinal - No nausea or vomiting. No heartburn or acid reflux. Bowel function has been pretty good with senna. His recent colonoscopy did show some polyps. No blood in the stool or black stools, Genitourinary (M) - His urination is slow. He has no other bladder symptoms. However, his recent surveillance cystoscopy did show recurrence of superficial bladder cancer, and he will now be undergoing treatment with intravesical mitomycin-C, Musculoskeletal - No joint or bone pain, Integumentary - No skin rash, Neurologic - No headache or dizziness. No numbness or tingling. No other focal neurologic symptoms, Psychiatric - No anxiety or depression. No insomnia. Vital Signs: Performed on Mar 22, 2020 10:42 Height - 72.00 in Temperature - 97.8 F (LOW) Pulse - 81 /min Respiration - 18 /min BP - 168/70 mm(hg) (HIGH) O2 Sat - 98 % Pain - 0 Physical Examination: Constitutional - He looks good generally, Eyes - Sclerae nonicteric. Conjunctivae clear, ENMT - No lesions noted in the oral cavity, Hematologic/Lymphatic - No cervical, clavicular, or axillary adenopathy, Respiratory - Lungs are clear with some decrease in air movement bilaterally, Cardiovascular - Heart rhythm is regular. There is no murmur, gallop, or rub noted, Abdomen - Soft. Liver and spleen are not enlarged. There is no abdominal mass or ascites noted and there is no inguinal adenopathy, Extremities - No edema, Neurologic - No focal neurologic deficits noted. Lab/Imaging: Test performed on Mar 22, 2020 09:19 Iron 183 mcg/dL Sodium 134 mmol/L TSH 2.39 uIU/mL Iron Binding Capacity (TIBC) 291 mcg/dl Potassium 3.6 mmol/L % Iron Saturation 62.8 % Chloride 99 mmol/L CO2 26 mmol/L UIBC 108 mcg/dL Anion Gap 12.6 BUN 15 mg/dL Creatinine 1.4 mg/dL Cr Clearance (Est) 49.4100 mL/min Glucose 114 mg/dL Osmolality - Calculated 280 mOsm/kg Calcium 9.9 mg/dL Protein, Total 7.3 g/dL Albumin 4.3 g/dL Globulin 3.0 g/dL Bilirubin, Total 1.0 mg/dL ALT (SGPT) 23 U/L AST (SGOT) 20 U/L Alkaline Phosphatase 107 IU/L WBC 5.9 10 3/uL RBC 5.18 10 6/uL HGB 13.9 g/dL HCT 41.2 % MCV 79.5 fL MCH 26.8 pg MCHC 33.7 g/dL RDW 18.8 % Platelet Count 207 10 3/cmm MPV 9.1 fL Neutrophils 2.85 10 3/uL Lymphocytes 2.2 10 3/uL Monocytes 0.8 10 3/uL Eosinophils 0.0 10 3/uL Basophils 0.1 10 3/uL Neutrophil % 48.3 % Lymphocyte % 36.5 % Monocyte % 13.0 % Eosinophil % 0.5 % Basophils % 1.0 % NRBC % 0 % Impression: 1. Patient with chronic lymphocytic leukemia, Meza stage 0 at initial diagnosis in December 2015, but with subsequent progression to stage III. 2. He has been followed on observation/expectant management. His other medical illnesses include: 3. Hypertension. 4. Superficial bladder cancer, currently on surveillance following TURBT and BCG therapy. During follow-up, he had a fairly rapid increase in his lymphocyte count. As of his follow-up visit in January 2019 his other blood counts had remained normal. However, by June 2019 his white count had increased significantly, to 102,000. At that point his hemoglobin had dropped to 11.9 g, consistent with Meza stage III disease. With that finding, I had recommended that he start treatment. Due to the coronavirus pandemic, he requested to put it off until October. On 11/03/2019 he began cycle 1 of treatment with the obinutuzumab/venetoclax regimen. He tolerated the initial infusions of obinutuzumab well and he also tolerated the venetoclax dose escalation with no adverse effects. He has now completed 3 cycles of obinutuzumab and thus far he continues to tolerate the venetoclax at 400 mg daily. He has had very good clinical response, though he remained mildly anemic, and his serum iron studies were consistent with iron deficiency. He has now completed 5 cycles of obinutuzumab, and he has been able to continue the venetoclax at 400 mg daily with no adverse effects. He had GI work-up for the iron deficiency. His colonoscopy apparently did show some polyps, but there were no other abnormal findings. His surveillance cystoscopy showed recurrence of superficial bladder cancer, for which he has been recommended to undergo intravesical mitomycin-C. Plan: He will proceed with his sixth and final infusion of obinutuzumab. He will continue the venetoclax at 400 mg daily. He will be undergoing intravesical mitomycin-C weekly for 6 weeks, and I see no contraindication to having that done cannot currently with the venetoclax. As a precaution, his blood counts will be monitored every 2 weeks. I will plan a follow-up visit in 8 weeks. He will be given a flu shot today. Signed By: Ish Ruiz M.D. <<Signature on File>>
== END 2020-03-27 23:59 | disposition home or self-care (01) ==
LOC: ONCMED 06:07
PROVIDERS: PCP Family Medicine; Visit Provider Internal Medicine Medical Oncology
DX: Z51.11 Encounter for antineoplastic chemotherapy (principal); Z23 Encounter for immunization; C91.10 Chronic lymphocytic leukemia of B-cell type not having achieved remission; C67.9 Malignant neoplasm of bladder, unspecified; D50.9 Iron deficiency anemia, unspecified; I10 Essential (primary) hypertension; Z51.81 Encounter for therapeutic drug level monitoring; Z79.899 Other long term (current) drug therapy
CPT/HCPCS: 80053; 83540; 83550; 84443; 85025; 90471; 90686; 96367; 96413; 96415; 99214; J1100; J1200; J7040; J7050; J9301

== ENCOUNTER 2020-04-19 05:27 | Outpatient (RCR) | payer MEDICARE, SELFPAY ==
[2020-04-06 09:22] LABS: Basophils # 0.1 10^3/uL (0.0-0.1); Basophils % 1.3 %; Eosinophils # 0.1 10^3/uL (0.0-0.8); Eosinophils % 2.2 %; Hematocrit 38.3 % (42.0-52.0); Lymphocytes # 2.4 10^3/uL (0.8-4.8); Lymphocytes % 37.2 %; Mean Corpuscular HGB Conc 33.9 g/dL (30.0-36.0); Mean Corpuscular Hemoglobin 27.7 pg (28.0-34.0); Mean Corpuscular Volume 81.7 fL (80-94); Monocytes % 16.1 %; Neutrophils # 2.67 10^3/uL (1.8-7.7); Neutrophils % 41.8 %; Nucleated Red Blood Cells % 0 %; Platelet Count 246 10^3/cmm (130-400); Red Blood Count 4.69 10^6/uL (4.1-5.3); Red Cell Distribution Width 20.1 % (12.1-15.1); White Blood Count 6.4 10^3/uL (4.0-10.0)
[2020-04-19 09:26] LABS: Basophils # 0.1 10^3/uL (0.0-0.1); Basophils % 1.4 %; Eosinophils # 0.8 10^3/uL (0.0-0.8); Hematocrit 40.3 % (42.0-52.0); Hemoglobin 13.8 g/dL (11.7-16.6); Lymphocytes # 2.5 10^3/uL (0.8-4.8); Lymphocytes % 29.9 %; Mean Corpuscular HGB Conc 34.2 g/dL (30.0-36.0); Mean Corpuscular Hemoglobin 28.8 pg (28.0-34.0); Mean Platelet Volume 8.8 fL (7.4-10.4); Monocytes # 1.2 10^3/uL (0.2-0.9); Monocytes % 14.5 %; Neutrophils # 3.65 10^3/uL (1.8-7.7); Neutrophils % 43.1 %; Nucleated Red Blood Cells % 0 %; Platelet Count 230 10^3/cmm (130-400); Red Cell Distribution Width 20.2 % (12.1-15.1); White Blood Count 8.4 10^3/uL (4.0-10.0)
== END 2020-04-26 23:59 | disposition home or self-care (01) ==
LOC: ONCMED 05:27
PROVIDERS: PCP Family Medicine; Visit Provider Internal Medicine Medical Oncology
DX: C91.10 Chronic lymphocytic leukemia of B-cell type not having achieved remission (principal)
CPT/HCPCS: 36415; 85025

== ENCOUNTER 2020-05-17 05:40 | Outpatient (RCR) | payer MEDICARE, SELFPAY ==
[2020-05-04 08:37] LABS: Basophils # 0.1 10^3/uL (0.0-0.1); Eosinophils # 0.4 10^3/uL (0.0-0.8); Hematocrit 38.7 % (42.0-52.0); Hemoglobin 13.4 g/dL (11.7-16.6); Lymphocytes # 2.6 10^3/uL (0.8-4.8); Lymphocytes % 32.3 %; Mean Corpuscular HGB Conc 34.6 g/dL (30.0-36.0); Mean Corpuscular Hemoglobin 29.5 pg (28.0-34.0); Mean Corpuscular Volume 85.1 fL (80-94); Mean Platelet Volume 9.5 fL (7.4-10.4); Monocytes # 1.2 10^3/uL (0.2-0.9); Monocytes % 14.3 %; Neutrophils # 3.74 10^3/uL (1.8-7.7); Neutrophils % 46.5 %; Nucleated Red Blood Cells % 0 %; Platelet Count 225 10^3/cmm (130-400); Red Blood Count 4.55 10^6/uL (4.1-5.3); Red Cell Distribution Width 18.5 % (12.1-15.1)
[2020-05-17 09:21] LABS: Basophils # 0.1 10^3/uL (0.0-0.1); Basophils % 1.3 %; Eosinophils # 0.8 10^3/uL (0.0-0.8); Eosinophils % 10.4 %; Hematocrit 40.4 % (42.0-52.0); Hemoglobin 13.6 g/dL (11.7-16.6); Lymphocytes # 2.6 10^3/uL (0.8-4.8); Lymphocytes % 36.2 %; Mean Corpuscular HGB Conc 33.7 g/dL (30.0-36.0); Mean Corpuscular Hemoglobin 30.3 pg (28.0-34.0); Monocytes % 13.9 %; Neutrophils # 2.71 10^3/uL (1.8-7.7); Neutrophils % 37.6 %; Nucleated Red Blood Cells % 0 %; Platelet Count 269 10^3/cmm (130-400); Red Blood Count 4.49 10^6/uL (4.1-5.3); White Blood Count 7.2 10^3/uL (4.0-10.0)
[2020-05-17 09:40] LABS: Alanine Aminotransferase 17 U/L (0-41); Albumin Level 4.3 g/dL (3.5-5.2); Alkaline Phosphatase 110 IU/L (40-130); Anion Gap 15.2 (5-19); Aspartate Amino Transferase 18 U/L (0-40); Blood Urea Nitrogen 18 mg/dL (8-23); Calcium 9.5 mg/dL (8.5-10.5); Carbon Dioxide 23 mmol/L (22-29); Chloride 102 mmol/L (98-107); Globulin 2.7 g/dL (1.3-4.6); Glucose 86 mg/dL (65-115); Iron 109 ug/dL (59-158); Lactate Dehydrogenase 190 U/L (135-225); Osmolality Calculated 283 mOsm/kg (285-295); Percent Saturation 37.2 % (20-50); Potassium 4.2 mmol/L (3.5-5.1); Sodium 136 mmol/L (136-145); Total Bilirubin 0.6 mg/dL (0.15-1.2); Total Iron Binding Capacity 293 mcg/dl; Unsaturated Iron Binding 184 ug/dL (112-347)
--- NOTE | 2020-05-20 08:23 | ONC FU_ITS ---
Dr. Ruiz Patient Follow-Up Note Patient: Jay Walsh Unit #: [id number]: 1940 Dicatated By: Ish Ruiz M.D.Date of Visit:May 17, 2020 Onc Med Follow-up/Prog Note Chief Complaint: Chronic lymphocytic leukemia. History of Present Illness: This is a 79 year-old man with chronic leukocytic leukemia, Meza stage 0 at initial diagnosis in December 2015, but with subsequent progression to stage III. 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 He is being followed with yearly surveillance cystoscopy. In the course of having a routine surveillance cystoscopy in December 2015 he was found to have a lymphocytosis. His CBC from 01/04/2016 showed normal hemoglobin at 13.8 g with white blood cell count 26,600 and platelet count 233,000. The differential showed 60% lymphocytes. He was seen for further evaluation by Dr. Scottie Baron on 01/26/2016. A subsequent flow cytometry confirmed a monoclonal population of B lymphocytes with coexpression of CD5 and CD19, consistent with chronic lymphocytic leukemia. He had early stage disease and he was just followed on observation/expectant management. He was seen here initially on 07/30/2018. His CBC at that time showed normal hemoglobin 13.5 g with white blood cell count increased to 43,000 and platelet count normal at 165,000. His chem profile was unremarkable except for mildly elevated BUN and creatinine at 19 1.3 mg/dL. The LDH was mildly elevated at 266/225 U/L. He appeared stable clinically, and he continued on observation/expectant management. At his follow-up visit in January 2019 there was further increase in the white blood cell count to 67,000, but with his hemoglobin stable at 13.0 g and platelet count normal at 186,000. LDH was mildly elevated but also stable. As of his follow-up visit in June 2019 there was a significant increase in the white blood cell count to 102,000. His hemoglobin was slightly low at 11.9 g. Platelet count remained normal at 168,000. With the decrease in his hemoglobin, I had recommended that he start treatment with the obinutuzumab/venetoclax regimen. Due to the coronavirus pandemic, he requested to put this off until October. His other medical illnesses have been limited to hypertension and superficial bladder cancer. He had smoked in the past, but only for a period of 11 years, and he quit smoking back in 1966. INTERIM HISTORY: He began cycle 1 of obinutuzumab/venetoclax on 11/03/2019. He had no adverse effects with his initial day1/day2 infusions of obinutuzumab, and he then continued with the full dose treatment at day 8 and day 15, again with no adverse effects. At day 22 he began venetoclax on the standard dose escalation regimen. He continued with cycle 2 of obinutuzumab on 12/01/2019. At that point he was still tolerating his treatment well and appeared to be showing a very good clinical response. He then continued the obinutuzumab on a monthly schedule together with venetoclax 400 mg daily. He completed his 6th and final cycle of obinutuzumab on 03/22/2020. During that time he was found on his routine surveillance cystoscopy to have recurrent superficial bladder cancer and he was recommended to complete a 6-week course of intravesical mitomycin-C. He is seen for a scheduled visit. He has been feeling pretty good generally. He completed his final intravesical mitomycin-C infusion 2 weeks ago. He says he has been feeling a little run down. He is still able to do light work. ECOG score is 1. He has good appetite. He has no fever or night sweats. He has no shortness of breath, cough, or chest pain. He has no GI complaints other than mild constipation, which he manages adequately with senna/docusate. He colonel he has no symptoms. He has no significant joint or bone pain. He has no focal neurologic symptoms. Medications: Acetaminophen 1 Tablet (of 500 mg) Oral daily, AmLODIPine Besylate 1 (10 mg) Tablet Oral daily, Aspirin 1 (81 mg) Tablet Oral daily, Claritin Tablet Oral PRN, Clotrimazole-Betamethasone (1-0.05 %) Cream Topical daily PRN, Melatonin 1 Capsule (of 10 mg) Oral daily PRN, Metamucil Pack Oral, Multivitamin Adult 1 Tablet Oral daily, Omeprazole 1 (20 mg) Capsule Delayed Release Oral daily, Senna S 1 Tablet (of 8.6-50 mg) Oral daily PRN, Venclexta 4 Tablet (of 100 mg) Oral daily Allergies: Azo Tabs and Iodine. Review of Systems: Constitutional - He has been feeling a little run down. Appetite is good and weight is stable. No fever, night sweats, or hot flashes. ECOG score is 1, ENMT - No sinus congestion/drainage. No mouth sores. No sore throat or difficulty swallowing, Hematologic/Lymphatic - No abnormal bruising or bleeding, Respiratory - No shortness of breath. No cough. No pleuritic pain or hemoptysis, Cardiovascular - No angina pain. No palpitations, Gastrointestinal - No nausea or vomiting. No heartburn or acid reflux. He has constipation but bowel function has been adequate with senna/docusate. No blood in the stool or black stools, Genitourinary (M) - He completed his intravesical therapy 2 weeks ago. He has no dysuria or hematuria. No urinary frequency. No urgency or incontinence, Musculoskeletal - No joint or bone pain, Integumentary - No skin rash, Neurologic - No headache or dizziness. No numbness or tingling. No other focal neurologic symptoms, Psychiatric - No anxiety or depression. No insomnia. Vital Signs: Performed on May 17, 2020 10:39 Height - 72.00 in Weight - 185 lbs (HIGH) BSA - 2.06 sq.m BMI - 25.09 Temperature - 98.3 F (LOW) Pulse - 84 /min Respiration - 16 /min BP - 153/70 mm(hg) (HIGH) O2 Sat - 98 % Pain - 0 Physical Examination: Constitutional - He looks good generally, Eyes - Sclerae nonicteric. Conjunctivae clear, ENMT - No lesions noted in the oral cavity, Hematologic/Lymphatic - There may be residual noted in the medial aspect of the left axilla. There is no other adenopathy noted in the neck or axillae, Respiratory - Lungs are clear with some decrease in air movement bilaterally, Cardiovascular - Heart rhythm is regular. There is no murmur, gallop, or rub noted, Abdomen - Soft. Liver and spleen are not enlarged. There is no abdominal mass or ascites noted and there is no inguinal adenopathy, Extremities - No edema, Neurologic - No focal neurologic deficits noted. Lab/Imaging: Test performed on May 17, 2020 09:07 Iron 109 mcg/dL LDH (Total) 190 U/L Sodium 136 mmol/L Iron Binding Capacity (TIBC) 293 mcg/dl Potassium 4.2 mmol/L % Iron Saturation 37.2 % Chloride 102 mmol/L CO2 23 mmol/L UIBC 184 mcg/dL Anion Gap 15.2 BUN 18 mg/dL Creatinine 1.3 mg/dL Cr Clearance (Est) 53.79 mL/min Glucose 86 mg/dL Osmolality - Calculated 283 mOsm/kg Calcium 9.5 mg/dL Protein, Total 7.0 g/dL Albumin 4.3 g/dL Globulin 2.7 g/dL Bilirubin, Total 0.6 mg/dL ALT (SGPT) 17 U/L AST (SGOT) 18 U/L Alkaline Phosphatase 110 IU/L WBC 7.2 10 3/uL RBC 4.49 10 6/uL HGB 13.6 g/dL HCT 40.4 % MCV 90.0 fL MCH 30.3 pg MCHC 33.7 g/dL RDW 17.0 % Platelet Count 269 10 3/cmm MPV 9.0 fL Neutrophils 2.71 10 3/uL Lymphocytes 2.6 10 3/uL Monocytes 1.0 10 3/uL Eosinophils 0.8 10 3/uL Basophils 0.1 10 3/uL Neutrophil % 37.6 % Lymphocyte % 36.2 % Monocyte % 13.9 % Eosinophil % 10.4 % Basophils % 1.3 % NRBC % 0 % Impression: 1. Patient with chronic lymphocytic leukemia, Meza stage 0 at initial diagnosis in December 2015, but with subsequent progression to stage III. 2. He has been followed on observation/expectant management. His other medical illnesses include: 3. Hypertension. 4. Superficial bladder cancer, currently on surveillance following TURBT and BCG therapy. During follow-up, he had a fairly rapid increase in his lymphocyte count. As of his follow-up visit in January 2019 his other blood counts had remained normal. However, by June 2019 his white count had increased significantly, to 102,000. At that point his hemoglobin had dropped to 11.9 g, consistent with Meza stage III disease. With that finding, I had recommended that he start treatment. Due to the coronavirus pandemic, he requested to put it off until October. On 11/03/2019 he began cycle 1 of treatment with the obinutuzumab/venetoclax regimen. He tolerated the initial infusions of obinutuzumab well and he also tolerated the venetoclax dose escalation with no adverse effects. He then continued the obinutuzumab infusions monthly together with venetoclax at 400 mg daily. He had very good clinical response, though he remained mildly anemic, and his serum iron studies were consistent with iron deficiency. As of 03/22/2020 he completed his 6th and final cycle of obinutuzumab, and he then continued the venetoclax at 400 mg daily. During that time he had a GI work-up for the iron deficiency. His colonoscopy showed some polyps, but there were no other abnormal findings. His surveillance cystoscopy showed recurrence of superficial bladder cancer, for which he was recommended to undergo a 6-week course of intravesical mitomycin-C. He completed his intravesical mitomycin-C treatment 2 weeks ago. Plan: He will continue treatment with venetoclax 400 mg daily. His blood counts will be monitored monthly. I will see him again in 3 months. Signed By: Ish Ruiz M.D. <<Signature on File>>
== END 2020-05-27 23:59 | disposition home or self-care (01) ==
LOC: ONCMED 05:40
PROVIDERS: PCP Family Medicine; Visit Provider Internal Medicine Medical Oncology
DX: C91.10 Chronic lymphocytic leukemia of B-cell type not having achieved remission (principal); I10 Essential (primary) hypertension; D50.9 Iron deficiency anemia, unspecified; Z85.51 Personal history of malignant neoplasm of bladder; Z79.899 Other long term (current) drug therapy
CPT/HCPCS: 36415; 80053; 83540; 83550; 83615; 85025; 99214

== ENCOUNTER 2020-06-17 08:59 | Outpatient (RCR) | payer MEDICARE, SELFPAY ==
[2020-06-17 09:36] LABS: Basophils # 0.1 10^3/uL (0.0-0.1); Basophils % 1.1 %; Eosinophils # 0.2 10^3/uL (0.0-0.8); Eosinophils % 3.1 %; Hematocrit 39.7 % (42.0-52.0); Hemoglobin 13.4 g/dL (11.7-16.6); Lymphocytes # 1.9 10^3/uL (0.8-4.8); Mean Corpuscular HGB Conc 33.8 g/dL (30.0-36.0); Mean Corpuscular Volume 88.8 fL (80-94); Mean Platelet Volume 9.2 fL (7.4-10.4); Monocytes # 0.8 10^3/uL (0.2-0.9); Monocytes % 15.3 %; Neutrophils # 2.26 10^3/uL (1.8-7.7); Neutrophils % 43.1 %; Nucleated Red Blood Cells % 0 %; Platelet Count 222 10^3/cmm (130-400); Red Blood Count 4.47 10^6/uL (4.1-5.3); Red Cell Distribution Width 14.8 % (12.1-15.1); White Blood Count 5.2 10^3/uL (4.0-10.0)
[2020-06-17 09:55] LABS: Alanine Aminotransferase 20 U/L (0-41); Albumin Level 4.3 g/dL (3.5-5.2); Alkaline Phosphatase 95 IU/L (40-130); Anion Gap 13.8 (5-19); Aspartate Amino Transferase 23 U/L (0-40); Blood Urea Nitrogen 15 mg/dL (8-23); Calcium 9.6 mg/dL (8.5-10.5); Carbon Dioxide 26 mmol/L (22-29); Chloride 100 mmol/L (98-107); Globulin 2.9 g/dL (1.3-4.6); Glucose 92 mg/dL (65-115); Lactate Dehydrogenase 200 U/L (135-225); Osmolality Calculated 282 mOsm/kg (285-295); Potassium 3.8 mmol/L (3.5-5.1); Sodium 136 mmol/L (136-145); Total Bilirubin 0.6 mg/dL (0.15-1.2); Total Protein 7.2 g/dL (6.6-8.7)
== END 2020-06-27 23:59 | disposition home or self-care (01) ==
LOC: ONCMED 08:59
PROVIDERS: PCP Family Medicine; Visit Provider Internal Medicine Medical Oncology
DX: C91.10 Chronic lymphocytic leukemia of B-cell type not having achieved remission (principal)
CPT/HCPCS: 36415; 80053; 83615; 85025

== ENCOUNTER 2020-07-16 07:01 | Outpatient (RCR) | payer MEDICARE, SELFPAY ==
[2020-07-16 09:25] LABS: Basophils # 0.1 10^3/uL (0.0-0.1); Basophils % 1.6 %; Eosinophils # 0.2 10^3/uL (0.0-0.8); Eosinophils % 2.1 %; Hematocrit 40.6 % (42.0-52.0); Hemoglobin 13.8 g/dL (11.7-16.6); Lymphocytes % 26.6 %; Mean Corpuscular Volume 88.3 fL (80-94); Mean Platelet Volume 9.3 fL (7.4-10.4); Monocytes # 1.4 10^3/uL (0.2-0.9); Monocytes % 18.2 %; Neutrophils # 3.86 10^3/uL (1.8-7.7); Neutrophils % 50.7 %; Nucleated Red Blood Cells % 0 %; Platelet Count 185 10^3/cmm (130-400); Red Cell Distribution Width 14.9 % (12.1-15.1); White Blood Count 7.6 10^3/uL (4.0-10.0)
== END 2020-07-25 23:59 | disposition home or self-care (01) ==
LOC: ONCMED 07:01
PROVIDERS: PCP Family Medicine; Visit Provider Internal Medicine Medical Oncology
DX: C91.10 Chronic lymphocytic leukemia of B-cell type not having achieved remission (principal)
CPT/HCPCS: 36415; 85025

== ENCOUNTER 2020-08-18 05:49 | Outpatient (RCR) | payer MEDICARE, SELFPAY ==
[2020-08-18 09:28] LABS: Basophils # 0.1 10^3/uL (0.0-0.1); Basophils % 1.5 %; Eosinophils # 0.3 10^3/uL (0.0-0.8); Eosinophils % 4.4 %; Hematocrit 40.1 % (42.0-52.0); Hemoglobin 13.5 g/dL (11.7-16.6); Lymphocytes # 2.3 10^3/uL (0.8-4.8); Lymphocytes % 37.6 %; Mean Corpuscular HGB Conc 33.7 g/dL (30.0-36.0); Mean Corpuscular Hemoglobin 30.1 pg (28.0-34.0); Mean Corpuscular Volume 89.3 fL (80-94); Mean Platelet Volume 9.4 fL (7.4-10.4); Monocytes % 16.4 %; Neutrophils # 2.44 10^3/uL (1.8-7.7); Neutrophils % 39.5 %; Nucleated Red Blood Cells % 0 %; Platelet Count 216 10^3/cmm (130-400); Red Blood Count 4.49 10^6/uL (4.1-5.3); Red Cell Distribution Width 15.1 % (12.1-15.1); White Blood Count 6.2 10^3/uL (4.0-10.0)
[2020-08-18 10:25] LABS: Alanine Aminotransferase 19 U/L (0-41); Albumin Level 4.5 g/dL (3.5-5.2); Alkaline Phosphatase 90 IU/L (40-130); Anion Gap 11.9 (5-19); Aspartate Amino Transferase 24 U/L (0-40); Blood Urea Nitrogen 16 mg/dL (8-23); Calcium 9.6 mg/dL (8.5-10.5); Carbon Dioxide 28 mmol/L (22-29); Chloride 102 mmol/L (98-107); Globulin 2.8 g/dL (1.3-4.6); Glucose 101 mg/dL (65-115); Lactate Dehydrogenase 187 U/L (135-225); Osmolality Calculated 287 mOsm/kg (285-295); Potassium 3.9 mmol/L (3.5-5.1); Sodium 138 mmol/L (136-145); Total Bilirubin 0.7 mg/dL (0.15-1.2); Total Protein 7.3 g/dL (6.6-8.7)
--- NOTE | 2020-08-22 09:46 | ONC FU_ITS ---
Dr. Ruiz Patient Follow-Up Note Patient: Jay Walsh Unit #: [id number]: [id number] Dicatated By: Ish Ruiz M.D.Date of Visit:Aug 18, 2020 Onc Med Follow-up/Prog Note Chief Complaint: Chronic lymphocytic leukemia/bladder cancer. History of Present Illness: This is an 80 year-old man with chronic leukocytic leukemia, Meza stage 0 at initial diagnosis in December 2015, but with subsequent progression to stage III. 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 He has been followed with yearly surveillance cystoscopy. In the course of having a routine surveillance cystoscopy in December 2015 he was found to have a lymphocytosis. His CBC from 01/04/2016 showed normal hemoglobin at 13.8 g with white blood cell count 26,600 and platelet count 233,000. The differential showed 60% lymphocytes. He was seen for further evaluation by Dr. Scottie Baron on 01/26/2016. A subsequent flow cytometry confirmed a monoclonal population of B lymphocytes with coexpression of CD5 and CD19, consistent with chronic lymphocytic leukemia. He had early stage disease and he was just followed on observation/expectant management. He was seen here initially on 07/30/2018. His CBC at that time showed normal hemoglobin 13.5 g with white blood cell count increased to 43,000 and platelet count normal at 165,000. His chem profile was unremarkable except for mildly elevated BUN and creatinine at 19 1.3 mg/dL. The LDH was mildly elevated at 266/225 U/L. He appeared stable clinically, and he continued on observation/expectant management. At his follow-up visit in January 2019 there was further increase in the white blood cell count to 67,000, but with his hemoglobin stable at 13.0 g and platelet count normal at 186,000. LDH was mildly elevated but also stable. As of his follow-up visit in June 2019 there was a significant increase in the white blood cell count to 102,000. His hemoglobin was slightly low at 11.9 g. Platelet count remained normal at 168,000. With the decrease in his hemoglobin, I had recommended that he start treatment with the obinutuzumab/venetoclax regimen. Due to the coronavirus pandemic, he requested to put this off until October. He then began cycle 1 of obinutuzumab/venetoclax on 11/03/2019. He had no adverse effects with his initial day1/day2 infusions of obinutuzumab, and he then continued with the full dose treatment at day 8 and day 15, again with no adverse effects. At day 22 he began venetoclax on the standard dose escalation regimen. He continued with cycle 2 of obinutuzumab on 12/01/2019, which he tolerated well. He then continued the obinutuzumab on a monthly schedule together with venetoclax 400 mg daily. He completed his 6th and final cycle of obinutuzumab on 03/22/2020. He had a very good clinical response to the treatment and following completion of the obinutuzumab, he has continued venetoclax at 400 mg daily. During that time he was found on his routine surveillance cystoscopy to have recurrent superficial bladder cancer and he was recommended to complete a 6-week course of intravesical mitomycin-C. He completed his final intravesical mitomycin-C infusion in April. His other medical illnesses have been limited to hypertension and superficial bladder cancer. He had smoked in the past, but only for a period of 11 years, and he quit smoking back in 1966. INTERIM HISTORY: He is seen for a scheduled visit. Since his last visit he has had a negative surveillance cystoscopy. He also has undergone excision of a skin cancer from his left mormon area. He has been feeling good generally. He has pretty good energy, and he has normal activity. ECOG score is 0. His appetite is not very good for breakfast, but otherwise okay. He has gained a little weight. He does not have fever or night sweats. He has no shortness of breath, cough, or chest pain. He has no GI complaints. He did require antibiotic therapy for urinary tract infection. His bladder function is okay now. He has a little soreness in his back. He has no other joint or bone pain. He does not complain of headache or dizziness. He has no focal neurologic symptoms. Medications: Acetaminophen 1 Tablet (of 500 mg) Oral daily, AmLODIPine Besylate 1 (10 mg) Tablet Oral daily, Aspirin 1 (81 mg) Tablet Oral daily, Claritin Tablet Oral PRN, Clotrimazole-Betamethasone (1-0.05 %) Cream Topical daily PRN, Melatonin 1 Capsule (of 10 mg) Oral daily PRN, Metamucil Pack Oral, Multivitamin Adult 1 Tablet Oral daily, Omeprazole 1 (20 mg) Capsule Delayed Release Oral daily, Senna S 1 Tablet (of 8.6-50 mg) Oral daily PRN, Venclexta 4 Tablet (of 100 mg) Oral daily Allergies: Azo Tabs and Iodine. Vital Signs: Performed on Aug 18, 2020 10:40 Height - 72.00 in Weight - 187 lbs (HIGH) BSA - 2.07 sq.m BMI - 25.36 Temperature - 99 F (HIGH) Pulse - 73 /min Respiration - 18 /min BP - 146/68 mm(hg) (HIGH) O2 Sat - 98 % Pain - 0 Fatigue - 3 Physical Examination: Constitutional - He looks good generally, Eyes - Sclerae nonicteric. Conjunctivae clear, ENMT - No lesions noted in the oral cavity, Hematologic/Lymphatic - No cervical, clavicular, or axillary adenopathy, Respiratory - Lungs are clear with some decrease in air movement bilaterally, Cardiovascular - Heart rhythm is regular. There is no murmur, gallop, or rub noted, Abdomen - Soft. Liver and spleen are not enlarged. There is no abdominal mass or ascites noted and there is no inguinal adenopathy, Extremities - No edema, Neurologic - No focal neurologic deficits noted. Lab/Imaging: Test performed on Aug 18, 2020 09:03 LDH (Total) 187 U/L Sodium 138 mmol/L Potassium 3.9 mmol/L Chloride 102 mmol/L CO2 28 mmol/L Anion Gap 11.9 BUN 16 mg/dL Creatinine 1.2 mg/dL Cr Clearance (Est) 58.91 mL/min Glucose 101 mg/dL Osmolality - Calculated 287 mOsm/kg Calcium 9.6 mg/dL Protein, Total 7.3 g/dL Albumin 4.5 g/dL Globulin 2.8 g/dL Bilirubin, Total 0.7 mg/dL ALT (SGPT) 19 U/L AST (SGOT) 24 U/L Alkaline Phosphatase 90 IU/L WBC 6.2 10 3/uL RBC 4.49 10 6/uL HGB 13.5 g/dL HCT 40.1 % MCV 89.3 fL MCH 30.1 pg MCHC 33.7 g/dL RDW 15.1 % Platelet Count 216 10 3/cmm MPV 9.4 fL Neutrophils 2.44 10 3/uL Lymphocytes 2.3 10 3/uL Monocytes 1.0 10 3/uL Eosinophils 0.3 10 3/uL Basophils 0.1 10 3/uL Neutrophil % 39.5 % Lymphocyte % 37.6 % Monocyte % 16.4 % Eosinophil % 4.4 % Basophils % 1.5 % NRBC % 0 % Problem List: 1. Chronic lymphocytic leukemia, Meza stage 0 at initial diagnosis in December 2015, but with subsequent progression to stage III. 2. During follow-up he was found to have iron deficiency anemia. 3. Hypertension. 4. Superficial bladder cancer, on surveillance following TURBT and BCG therapy, completed in April 2020. Problems Addressed with this Encounter and Plan: 1. Patient with chronic lymphocytic leukemia, Meza stage 0 at initial diagnosis in December 2015, but with subsequent progression to stage III. He had initially been followed on observation/expectant management. However, by June 2019 his white count had increased significantly, to 102,000, and at that point his hemoglobin had dropped to 11.9 g, consistent with Meza stage III disease. With that finding, I had recommended that he start treatment. Due to the coronavirus pandemic, he requested to put it off until October. On 11/03/2019 he began cycle 1 of treatment with the obinutuzumab/venetoclax regimen. He tolerated the initial infusions of obinutuzumab well and he also tolerated the venetoclax dose escalation with no adverse effects. He then continued the obinutuzumab infusions monthly together with venetoclax at 400 mg daily. As of 03/22/2020 he completed his 6th and final cycle of obinutuzumab. He has had very good clinical response, and during subsequent followup he has continued to tolerate the venetoclax with no adverse effects. He will continue treatment with venetoclax 400 mg daily. His blood count will be rechecked in 6 weeks. I will see him again in 3 months. 2. During follow-up he was found to have iron deficiency anemia. His subsequent colonoscopy showed some polyps, but there were no other abnormal findings. The anemia resolved on oral iron supplementation. He continues treatment with ferrous sulfate 325 mg daily. Signed By: Ish Ruiz M.D. <<Signature on File>>
== END 2020-08-25 23:59 | disposition home or self-care (01) ==
LOC: ONCMED 05:49
PROVIDERS: PCP Family Medicine; Visit Provider Internal Medicine Medical Oncology
DX: C91.10 Chronic lymphocytic leukemia of B-cell type not having achieved remission (principal); C79.11 Secondary malignant neoplasm of bladder; D50.9 Iron deficiency anemia, unspecified; I10 Essential (primary) hypertension; Z79.899 Other long term (current) drug therapy
CPT/HCPCS: 80053; 83615; 85025; 99214

== ENCOUNTER 2020-09-29 10:14 | Outpatient (CLI) | payer MEDICARE, SELFPAY ==
[2020-09-29 10:48] LABS: Basophils # 0.1 10^3/uL (0.0-0.1); Basophils % 0.7 %; Eosinophils # 0.1 10^3/uL (0.0-0.8); Eosinophils % 0.7 %; Hematocrit 33.7 % (42.0-52.0); Hemoglobin 11.4 g/dL (11.7-16.6); Lymphocytes # 1.8 10^3/uL (0.8-4.8); Lymphocytes % 20.5 %; Mean Corpuscular HGB Conc 33.8 g/dL (30.0-36.0); Mean Corpuscular Volume 88.7 fL (80-94); Mean Platelet Volume 8.6 fL (7.4-10.4); Monocytes % 10.8 %; Neutrophils # 5.76 10^3/uL (1.8-7.7); Neutrophils % 65.6 %; Nucleated Red Blood Cells % 0 %; Platelet Count 299 10^3/cmm (130-400); Red Cell Distribution Width 14.5 % (12.1-15.1); White Blood Count 8.8 10^3/uL (4.0-10.0)
== END 2020-09-29 10:15 | disposition home or self-care (01) ==
LOC: ONCMED 10:16
PROVIDERS: PCP Family Medicine; Visit Provider Internal Medicine Medical Oncology
DX: C91.10 Chronic lymphocytic leukemia of B-cell type not having achieved remission (principal)
CPT/HCPCS: 36415; 85025

== ENCOUNTER 2020-11-17 13:56 | Outpatient (CLI) | payer MEDICARE, SELFPAY ==
[2020-11-17 14:45] LABS: Basophils # 0.1 10^3/uL (0.0-0.1); Basophils % 1.2 %; Eosinophils % 0.4 %; Hematocrit 35.8 % (42.0-52.0); Lymphocytes % 38.8 %; Mean Corpuscular HGB Conc 33.5 g/dL (30.0-36.0); Mean Corpuscular Hemoglobin 30.3 pg (28.0-34.0); Mean Corpuscular Volume 90.4 fL (80-94); Mean Platelet Volume 9.4 fL (7.4-10.4); Monocytes # 1.2 10^3/uL (0.2-0.9); Monocytes % 23.9 %; Neutrophils # 1.79 10^3/uL (1.8-7.7); Neutrophils % 34.7 %; Nucleated Red Blood Cells % 0 %; Platelet Count 305 10^3/cmm (130-400); Red Blood Count 3.96 10^6/uL (4.1-5.3); Red Cell Distribution Width 16.3 % (12.1-15.1); White Blood Count 5.2 10^3/uL (4.0-10.0)
[2020-11-17 15:11] LABS: Alanine Aminotransferase 15 U/L (0-41); Albumin Level 4.1 g/dL (3.5-5.2); Alkaline Phosphatase 93 IU/L (40-130); Anion Gap 13.1 (5-19); Aspartate Amino Transferase 19 U/L (0-40); Blood Urea Nitrogen 19 mg/dL (8-23); Calcium 8.9 mg/dL (8.5-10.5); Carbon Dioxide 24 mmol/L (22-29); Chloride 103 mmol/L (98-107); Globulin 2.4 g/dL (1.3-4.6); Glucose 88 mg/dL (65-115); Lactate Dehydrogenase 188 U/L (135-225); Osmolality Calculated 284 mOsm/kg (285-295); Potassium 4.1 mmol/L (3.5-5.1); Sodium 136 mmol/L (136-145); Total Bilirubin 0.5 mg/dL (0.15-1.2); Total Protein 6.5 g/dL (6.6-8.7)
--- NOTE | 2020-11-20 14:36 | ONC FU_ITS ---
Dr. Ruiz Patient Follow-Up Note Patient: Jay Walsh Unit #: [id number]: [id number] Dicatated By: Ish Ruiz M.D.Date of Visit:Nov 17, 2020 Onc Med Follow-up/Prog Note Chief Complaint: Chronic lymphocytic leukemia/bladder cancer. History of Present Illness: This is an 80 year-old man with chronic leukocytic leukemia, Meza stage 0 at initial diagnosis in December 2015, but with subsequent progression to stage III. 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 He has been followed with yearly surveillance cystoscopy. In the course of having a routine surveillance cystoscopy in December 2015 he was found to have a lymphocytosis. His CBC from 01/04/2016 showed normal hemoglobin at 13.8 g with white blood cell count 26,600 and platelet count 233,000. The differential showed 60% lymphocytes. He was seen for further evaluation by Dr. Scottie Baron on 01/26/2016. A subsequent flow cytometry confirmed a monoclonal population of B lymphocytes with coexpression of CD5 and CD19, consistent with chronic lymphocytic leukemia. He had early stage disease and he was just followed on observation/expectant management. He was seen here initially on 07/30/2018. His CBC at that time showed normal hemoglobin 13.5 g with white blood cell count increased to 43,000 and platelet count normal at 165,000. His chem profile was unremarkable except for mildly elevated BUN and creatinine at 19 1.3 mg/dL. The LDH was mildly elevated at 266/225 U/L. He appeared stable clinically, and he continued on observation/expectant management. At his follow-up visit in January 2019 there was further increase in the white blood cell count to 67,000, but with his hemoglobin stable at 13.0 g and platelet count normal at 186,000. LDH was mildly elevated but also stable. As of his follow-up visit in June 2019 there was a significant increase in the white blood cell count to 102,000. His hemoglobin was slightly low at 11.9 g. Platelet count remained normal at 168,000. With the decrease in his hemoglobin, I had recommended that he start treatment with the obinutuzumab/venetoclax regimen. Due to the coronavirus pandemic, he requested to put this off until October. He then began cycle 1 of obinutuzumab/venetoclax on 11/03/2019. He had no adverse effects with his initial day1/day2 infusions of obinutuzumab, and he then continued with the full dose treatment at day 8 and day 15, again with no adverse effects. At day 22 he began venetoclax on the standard dose escalation regimen. He continued with cycle 2 of obinutuzumab on 12/01/2019, which he tolerated well. He then continued the obinutuzumab on a monthly schedule together with venetoclax 400 mg daily. He completed his 6th and final cycle of obinutuzumab on 03/22/2020. He had a very good clinical response to the treatment and following completion of the obinutuzumab, he then continued venetoclax at 400 mg daily. During that time he was found on his routine surveillance cystoscopy to have recurrent superficial bladder cancer and he was recommended to complete a 6-week course of intravesical mitomycin-C. He completed his final intravesical mitomycin-C infusion in April. He continued his venetoclax at 400 mg daily other than having to hold it briefly while he was on antibiotic therapy with ciprofloxacin. His other medical illnesses have been limited to hypertension and superficial bladder cancer. He had smoked in the past, but only for a period of 11 years, and he quit smoking back in 1966. INTERIM HISTORY: He is seen for a scheduled visit. He has been feeling pretty good generally, though he does have some fatigue and somewhat limited activity tolerance. ECOG score is 1. His appetite is not very good in the mornings, but otherwise okay. His weight is down a few pounds. He does not have fever or night sweats. He has some allergy related sinus symptoms. He does not have shortness of breath, cough, or chest pain. He tends to have a little nausea in the mornings. His acid reflux is adequately managed with omeprazole. He has had some diarrhea, attributable to antibiotic. Bladder function has been okay, though his urinary stream is not real strong. He has no significant joint or bone pain. He does not complain of headache or dizziness. He has no focal neurologic symptoms. Medications: Acetaminophen 1 Tablet (of 500 mg) Oral daily, AmLODIPine Besylate 1 (10 mg) Tablet Oral daily, Aspirin 1 (81 mg) Tablet Oral daily, Claritin Tablet Oral PRN, Clotrimazole-Betamethasone (1-0.05 %) Cream Topical daily PRN, Melatonin 1 Capsule (of 10 mg) Oral daily PRN, Metamucil Pack Oral, Multivitamin Adult 1 Tablet Oral daily, Omeprazole 1 (20 mg) Capsule Delayed Release Oral daily, Senna S 1 Tablet (of 8.6-50 mg) Oral daily PRN, Venclexta 4 Tablet (of 100 mg) Oral daily Allergies: Azo Tabs and Iodine. Vital Signs: Performed on Nov 17, 2020 15:38 Height - 72.00 in Weight - 182.6 lbs (LOW) BSA - 2.05 sq.m BMI - 24.77 Temperature - 98 F (LOW) Pulse - 76 /min Respiration - 18 /min BP - 126/70 mm(hg) O2 Sat - 98 % Pain - 0 Fatigue - 6 Physical Examination: Constitutional - He looks good generally, Eyes - Sclerae nonicteric. Conjunctivae clear, ENMT - No lesions noted in the oral cavity, Hematologic/Lymphatic - No cervical, clavicular, or axillary adenopathy, Respiratory - Lungs sound clear, Cardiovascular - Heart rhythm is regular. There is no murmur, gallop, or rub noted, Abdomen - Soft. Liver and spleen are not enlarged. There is no abdominal mass or ascites noted and there is no inguinal adenopathy, Extremities - No edema. There are scattered purpuric lesions on the arms, Neurologic - No focal neurologic deficits noted. Lab/Imaging: Test performed on Nov 17, 2020 14:09 LDH (Total) 188 U/L Sodium 136 mmol/L Potassium 4.1 mmol/L Chloride 103 mmol/L CO2 24 mmol/L Anion Gap 13.1 BUN 19 mg/dL Creatinine 1.3 mg/dL Cr Clearance (Est) 53.09 mL/min Glucose 88 mg/dL Osmolality - Calculated 284 mOsm/kg Calcium 8.9 mg/dL Protein, Total 6.5 g/dL Albumin 4.1 g/dL Globulin 2.4 g/dL Bilirubin, Total 0.5 mg/dL ALT (SGPT) 15 U/L AST (SGOT) 19 U/L Alkaline Phosphatase 93 IU/L WBC 5.2 10 3/uL RBC 3.96 10 6/uL HGB 12.0 g/dL HCT 35.8 % MCV 90.4 fL MCH 30.3 pg MCHC 33.5 g/dL RDW 16.3 % Platelet Count 305 10 3/cmm MPV 9.4 fL Neutrophils 1.79 10 3/uL Lymphocytes 2.0 10 3/uL Monocytes 1.2 10 3/uL Eosinophils 0.0 10 3/uL Basophils 0.1 10 3/uL Neutrophil % 34.7 % Lymphocyte % 38.8 % Monocyte % 23.9 % Eosinophil % 0.4 % Basophils % 1.2 % NRBC % 0 % Problem List: 1. Chronic lymphocytic leukemia, Meza stage 0 at initial diagnosis in December 2015, but with subsequent progression to stage III. 2. During follow-up he was found to have iron deficiency anemia. 3. Hypertension. 4. Superficial bladder cancer, on surveillance following TURBT and BCG therapy, completed in April 2020. Problems Addressed with this Encounter and Plan: 1. Patient with chronic lymphocytic leukemia, Meza stage 0 at initial diagnosis in December 2015, but with subsequent progression to stage III. He had initially been followed on observation/expectant management. However, by June 2019 his white count had increased significantly, to 102,000, and at that point his hemoglobin had dropped to 11.9 g, consistent with Meza stage III disease. With that finding, I had recommended that he start treatment. Due to the coronavirus pandemic, he requested to put it off until October. On 11/03/2019 he began cycle 1 of treatment with the obinutuzumab/venetoclax regimen. He tolerated the initial infusions of obinutuzumab well and he also tolerated the venetoclax dose escalation with no adverse effects. He then continued the obinutuzumab infusions monthly together with venetoclax at 400 mg daily. As of 03/22/2020 he completed his 6th and final cycle of obinutuzumab. He has had very good clinical response, and during subsequent followup he has continued to tolerate the venetoclax with no adverse effects. He continues treatment with venetoclax 400 mg daily until he finishes his current supply. This will complete his one year of therapy. He will then begin on expectant management. I will see him again in 3 months, or sooner as needed. 2. He has superficial bladder cancer for which he completed a course of BCG therapy in April 2020. He continues follow-up with his urologist. Signed By: Ish Ruiz M.D. <<Signature on File>>
== END 2020-11-17 13:57 | disposition home or self-care (01) ==
LOC: ONCMED 14:00
PROVIDERS: PCP Family Medicine; Visit Provider Internal Medicine Medical Oncology
DX: C91.10 Chronic lymphocytic leukemia of B-cell type not having achieved remission (principal); D51.9 Vitamin B12 deficiency anemia, unspecified; I10 Essential (primary) hypertension; Z85.51 Personal history of malignant neoplasm of bladder; Z79.899 Other long term (current) drug therapy
CPT/HCPCS: 36415; 80053; 83615; 85025; 99214

== ENCOUNTER 2021-02-23 13:00 | Outpatient (CLI) | payer MEDICARE, SELFPAY ==
[2021-02-23 13:38] LABS: Basophils # 0.1 10^3/uL (0.0-0.1); Basophils % 1.1 %; Eosinophils # 0.5 10^3/uL (0.0-0.8); Eosinophils % 7.6 %; Hematocrit 35.7 % (42.0-52.0); Hemoglobin 12.2 g/dL (11.7-16.6); Lymphocytes # 2.7 10^3/uL (0.8-4.8); Lymphocytes % 43.6 %; Mean Corpuscular HGB Conc 34.2 g/dL (30.0-36.0); Mean Corpuscular Hemoglobin 30.9 pg (28.0-34.0); Mean Corpuscular Volume 90.4 fl (80-94); Mean Platelet Volume 9.5 fL (7.4-10.4); Monocytes # 0.8 10^3/uL (0.2-0.9); Monocytes % 13.4 %; Neutrophils # 2.12 10^3/uL (1.8-7.7); Neutrophils % 33.7 %; Nucleated Red Blood Cells % 0 %; Platelet Count 184 10^3/cmm (130-400); Red Blood Count 3.95 10^6/uL (4.1-5.3); Red Cell Distribution Width 14.2 % (12.1-15.1); White Blood Count 6.3 10^3/uL (4.0-10.0)
[2021-02-23 14:01] LABS: Alanine Aminotransferase 14 U/L (0-41); Albumin Level 3.9 g/dL (3.5-5.2); Alkaline Phosphatase 78 IU/L (40-130); Anion Gap 14.6 (5-19); Aspartate Amino Transferase 19 U/L (0-40); Blood Urea Nitrogen 19 mg/dL (8-23); Calcium 8.6 mg/dL (8.5-10.5); Carbon Dioxide 22 mmol/L (22-29); Chloride 100 mmol/L (98-107); Globulin 2.6 g/dL (1.3-4.6); Glucose 110 mg/dL (65-115); Lactate Dehydrogenase 167 U/L (135-225); Osmolality Calculated 279 mOsm/kg (285-295); Potassium 3.6 mmol/L (3.5-5.1); Sodium 133 mmol/L (136-145); Total Bilirubin 0.4 mg/dL (0.15-1.2); Total Protein 6.5 g/dL (6.6-8.7)
--- NOTE | 2021-02-24 06:06 | ONC FU_ITS ---
Dr. Ruiz Patient Follow-Up Note Patient: Jay Walsh Unit #: [id number]: 1940 Dicatated By: Ish Ruiz M.D.Date of Visit:Feb 23, 2021 Onc Med Follow-up/Prog Note Chief Complaint: Chronic lymphocytic leukemia/bladder cancer. History of Present Illness: This is an 80 year-old man with chronic leukocytic leukemia, Meza stage 0 at initial diagnosis in December 2015, but with subsequent progression to stage III. 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 He has been followed with yearly surveillance cystoscopy. In the course of having a routine surveillance cystoscopy in December 2015 he was found to have a lymphocytosis. His CBC from 01/04/2016 showed normal hemoglobin at 13.8 g with white blood cell count 26,600 and platelet count 233,000. The differential showed 60% lymphocytes. He was seen for further evaluation by Dr. Scottie Baron on 01/26/2016. A subsequent flow cytometry confirmed a monoclonal population of B lymphocytes with coexpression of CD5 and CD19, consistent with chronic lymphocytic leukemia. He had early stage disease and he was just followed on observation/expectant management. He was seen here initially on 07/30/2018. His CBC at that time showed normal hemoglobin 13.5 g with white blood cell count increased to 43,000 and platelet count normal at 165,000. His chem profile was unremarkable except for mildly elevated BUN and creatinine at 19 1.3 mg/dL. The LDH was mildly elevated at 266/225 U/L. He appeared stable clinically, and he continued on observation/expectant management. At his follow-up visit in January 2019 there was further increase in the white blood cell count to 67,000, but with his hemoglobin stable at 13.0 g and platelet count normal at 186,000. LDH was mildly elevated but also stable. As of his follow-up visit in June 2019 there was a significant increase in the white blood cell count to 102,000. His hemoglobin was slightly low at 11.9 g. Platelet count remained normal at 168,000. With the decrease in his hemoglobin, I had recommended that he start treatment with the obinutuzumab/venetoclax regimen. Due to the coronavirus pandemic, he requested to put this off until October. He then began cycle 1 of obinutuzumab/venetoclax on 11/03/2019. He had no adverse effects with his initial day1/day2 infusions of obinutuzumab, and he then continued with the full dose treatment at day 8 and day 15, again with no adverse effects. At day 22 he began venetoclax on the standard dose escalation regimen. He continued with cycle 2 of obinutuzumab on 12/01/2019, which he tolerated well. He then continued the obinutuzumab on a monthly schedule together with venetoclax 400 mg daily. He completed his 6th and final cycle of obinutuzumab on 03/22/2020. He had a very good clinical response to the treatment and following completion of the obinutuzumab, he then continued venetoclax at 400 mg daily. During that time he was found on his routine surveillance cystoscopy to have recurrent superficial bladder cancer and he was recommended to complete a 6-week course of intravesical mitomycin-C. He completed his final intravesical mitomycin-C infusion in April. He continued his venetoclax at 400 mg daily other than having to hold it briefly while he was on antibiotic therapy with ciprofloxacin. He then stopped the venetoclax in October 2020 after completing a year of treatment. His other medical illnesses have been limited to hypertension and superficial bladder cancer. He had smoked in the past, but only for a period of 11 years, and he quit smoking back in 1966. INTERIM HISTORY: He is seen for a scheduled visit. He has been feeling good generally. His energy lately has been good. He is doing some walking and he has continued all of his other normal activities. ECOG score is 0. His appetite is good. He has no fever or night sweats. He has some sinus drainage and he has a little bit of cough. He does not complain of shortness of breath or chest pain. He has no GI complaints other than occasional constipation. He has mild urinary obstructive symptoms. He is due for cystoscopy again in May. He has no significant joint or bone pain. He does not complain of headache or dizziness, and he has no focal neurologic symptoms. Medications: Acetaminophen 1 Tablet (of 500 mg) Oral daily, AmLODIPine Besylate 1 (10 mg) Tablet Oral daily, Aspirin 1 (81 mg) Tablet Oral daily, Claritin Tablet Oral PRN, Clotrimazole-Betamethasone (1-0.05 %) Cream Topical daily PRN, Melatonin 1 Capsule (of 10 mg) Oral daily PRN, Metamucil Pack Oral, Multivitamin Adult 1 Tablet Oral daily, Omeprazole 1 (20 mg) Capsule Delayed Release Oral daily, Senna S 1 Tablet (of 8.6-50 mg) Oral daily PRN, Venclexta 4 Tablet (of 100 mg) Oral daily Allergies: Azo Tabs and Iodine. Vital Signs: Performed on Feb 23, 2021 14:41 Height - 72.00 in Weight - 188.8 lbs (HIGH) BSA - 2.08 sq.m BMI - 25.61 Temperature - 98.4 F Pulse - 76 /min Respiration - 18 /min BP - 146/72 mm(hg) (HIGH) O2 Sat - 98 % Pain - 0 Fatigue - 0 Physical Examination: Constitutional - He looks good generally, Eyes - Sclerae nonicteric. Conjunctivae clear, ENMT - No lesions noted in the oral cavity, Hematologic/Lymphatic - No cervical, clavicular, or axillary adenopathy, Respiratory - Lungs sound clear, Cardiovascular - Heart rhythm is regular. There is no murmur, gallop, or rub noted, Abdomen - Soft. Liver and spleen are not enlarged. There is no abdominal mass or ascites noted and there is no inguinal adenopathy, Extremities - No edema, Neurologic - No focal neurologic deficits noted. Lab/Imaging: Test performed on Feb 23, 2021 13:15 LDH (Total) 167 U/L Sodium 133 mmol/L Potassium 3.6 mmol/L Chloride 100 mmol/L CO2 22 mmol/L Anion Gap 14.6 BUN 19 mg/dL Creatinine 1.3 mg/dL Cr Clearance (Est) 54.90 mL/min Glucose 110 mg/dL Osmolality - Calculated 279 mOsm/kg Calcium 8.6 mg/dL Protein, Total 6.5 g/dL Albumin 3.9 g/dL Globulin 2.6 g/dL Bilirubin, Total 0.4 mg/dL ALT (SGPT) 14 U/L AST (SGOT) 19 U/L Alkaline Phosphatase 78 IU/L WBC 6.3 10 3/uL RBC 3.95 10 6/uL HGB 12.2 g/dL HCT 35.7 % MCV 90.4 fl MCH 30.9 pg MCHC 34.2 g/dL RDW 14.2 % Platelet Count 184 10 3/cmm MPV 9.5 fL Neutrophils 2.12 10 3/uL Lymphocytes 2.7 10 3/uL Monocytes 0.8 10 3/uL Eosinophils 0.5 10 3/uL Basophils 0.1 10 3/uL Neutrophil % 33.7 % Lymphocyte % 43.6 % Monocyte % 13.4 % Eosinophil % 7.6 % Basophils % 1.1 % NRBC % 0 % Problem List: 1. Chronic lymphocytic leukemia, Meza stage 0 at initial diagnosis in December 2015, but with subsequent progression to stage III. 2. During follow-up he was found to have iron deficiency anemia. 3. Hypertension. 4. Superficial bladder cancer, on surveillance following TURBT and BCG therapy, completed in April 2020. Problems Addressed with this Encounter and Plan: 1. Patient with chronic lymphocytic leukemia, Meza stage 0 at initial diagnosis in December 2015, but with subsequent progression to stage III. He had initially been followed on observation/expectant management. However, by June 2019 his white count had increased significantly, to 102,000, and at that point his hemoglobin had dropped to 11.9 g, consistent with Meza stage III disease. With that finding, I had recommended that he start treatment. Due to the coronavirus pandemic, he requested to put it off until October. On 11/03/2019 he began cycle 1 of treatment with the obinutuzumab/venetoclax regimen. He tolerated the initial infusions of obinutuzumab well and he also tolerated the venetoclax dose escalation with no adverse effects. He then continued the obinutuzumab infusions monthly together with venetoclax at 400 mg daily. As of 03/22/2020 he completed his 6th and final cycle of obinutuzumab. He had very good clinical response, and he was then able to continue venetoclax at 400 mg daily with no adverse effects. The venetoclax was stopped in October 2020 after completing a full year of treatment. At this point he appears to be doing well clinically. Thus far there has been no evidence of recurrence/progression of the CLL. He remains on expectant management. I will see him again in 6 months. He will be given a flu shot today. He also is encouraged to get a COVID-19 booster whenever that is available. 2. He has superficial bladder cancer for which he completed a course of BCG therapy in April 2020. He will be due for surveillance cystoscopy in May. Signed By: Ish Ruiz M.D. <<Signature on File>>
== END 2021-02-23 13:01 | disposition home or self-care (01) ==
LOC: ONCMED 13:05
PROVIDERS: PCP Family Medicine; Visit Provider Internal Medicine Medical Oncology
DX: C91.10 Chronic lymphocytic leukemia of B-cell type not having achieved remission (principal); D50.9 Iron deficiency anemia, unspecified; I10 Essential (primary) hypertension; Z85.51 Personal history of malignant neoplasm of bladder; Z79.899 Other long term (current) drug therapy; Z79.82 Long term (current) use of aspirin
CPT/HCPCS: 36415; 80053; 83615; 85025; 90471; 90686; 99214

== ENCOUNTER 2021-08-19 10:22 | Outpatient (CLI) | payer MEDICARE, SELFPAY ==
[2021-08-19 11:02] LABS: Basophils # 0.1 10^3/uL (0.0-0.1); Basophils % 1.3 %; Eosinophils # 0.5 10^3/uL (0.0-0.8); Eosinophils % 6.5 %; Hematocrit 39.2 % (42.0-52.0); Hemoglobin 13.3 g/dL (11.7-16.6); Lymphocytes % 38.3 %; Mean Corpuscular HGB Conc 33.9 g/dL (30.0-36.0); Mean Corpuscular Hemoglobin 29.6 pg (28.0-34.0); Mean Corpuscular Volume 87.1 fl (80-94); Mean Platelet Volume 9.5 fL (7.4-10.4); Monocytes # 0.9 10^3/uL (0.2-0.9); Monocytes % 11.9 %; Neutrophils # 3.28 10^3/uL (1.8-7.7); Neutrophils % 41.5 %; Nucleated Red Blood Cells % 0 %; Platelet Count 231 10^3/cmm (130-400); Red Cell Distribution Width 14.5 % (12.1-15.1); White Blood Count 7.9 10^3/uL (4.0-10.0)
[2021-08-19 11:21] LABS: Alanine Aminotransferase 18 U/L (0-41); Albumin Level 4.5 g/dL (3.5-5.2); Alkaline Phosphatase 76 IU/L (40-130); Anion Gap 14.1 (5-19); Aspartate Amino Transferase 18 U/L (0-40); Blood Urea Nitrogen 18 mg/dL (8-23); Calcium 9.8 mg/dL (8.5-10.5); Carbon Dioxide 23 mmol/L (22-29); Chloride 102 mmol/L (98-107); Globulin 2.6 g/dL (1.3-4.6); Glucose 79 mg/dL (65-115); Lactate Dehydrogenase 168 U/L (135-225); Osmolality Calculated 281 mOsm/kg (285-295); Potassium 4.1 mmol/L (3.5-5.1); Sodium 135 mmol/L (136-145); Total Bilirubin 0.6 mg/dL (0.15-1.2); Total Protein 7.1 g/dL (6.6-8.7)
== END 2021-08-19 10:23 | disposition home or self-care (01) ==
PROVIDERS: PCP Family Medicine; Visit Provider Internal Medicine Medical Oncology
DX: C91.10 Chronic lymphocytic leukemia of B-cell type not having achieved remission (principal)
CPT/HCPCS: 36415; 80053; 83615; 85025

== ENCOUNTER 2021-08-23 14:25 | Outpatient (CLI) | payer MEDICARE, SELFPAY ==
--- NOTE | 2021-08-24 06:34 | ONC FU_ITS ---
Dr. Ruiz Patient Follow-Up Note Patient: Jay Walsh Unit #: [id number]: [id number] Dicatated By: Ish Ruiz M.D.Date of Visit:Aug 23, 2021 Onc Med Follow-up/Prog Note Chief Complaint: Chronic lymphocytic leukemia/bladder cancer. History of Present Illness: This is an 81 year-old man with chronic leukocytic leukemia, Meza stage 0 at initial diagnosis in December 2015, but with subsequent progression to stage III. 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 He has been followed with yearly surveillance cystoscopy. In the course of having a routine surveillance cystoscopy in December 2015 he was found to have a lymphocytosis. His CBC from 01/04/2016 showed normal hemoglobin at 13.8 g with white blood cell count 26,600 and platelet count 233,000. The differential showed 60% lymphocytes. He was seen for further evaluation by Dr. Scottie Baron on 01/26/2016. A subsequent flow cytometry confirmed a monoclonal population of B lymphocytes with coexpression of CD5 and CD19, consistent with chronic lymphocytic leukemia. He had early stage disease and he was just followed on observation/expectant management. He was seen here initially on 07/30/2018. His CBC at that time showed normal hemoglobin 13.5 g with white blood cell count increased to 43,000 and platelet count normal at 165,000. His chem profile was unremarkable except for mildly elevated BUN and creatinine at 19 1.3 mg/dL. The LDH was mildly elevated at 266/225 U/L. He appeared stable clinically, and he continued on observation/expectant management. At his follow-up visit in January 2019 there was further increase in the white blood cell count to 67,000, but with his hemoglobin stable at 13.0 g and platelet count normal at 186,000. LDH was mildly elevated but also stable. As of his follow-up visit in June 2019 there was a significant increase in the white blood cell count to 102,000. His hemoglobin was slightly low at 11.9 g. Platelet count remained normal at 168,000. With the decrease in his hemoglobin, I had recommended that he start treatment with the obinutuzumab/venetoclax regimen. Due to the coronavirus pandemic, he requested to put this off until October. He then began cycle 1 of obinutuzumab/venetoclax on 11/03/2019. He had no adverse effects with his initial day1/day2 infusions of obinutuzumab, and he then continued with the full dose treatment at day 8 and day 15, again with no adverse effects. At day 22 he began venetoclax on the standard dose escalation regimen. He continued with cycle 2 of obinutuzumab on 12/01/2019, which he tolerated well. He then continued the obinutuzumab on a monthly schedule together with venetoclax 400 mg daily. He completed his 6th and final cycle of obinutuzumab on 03/22/2020. He had a very good clinical response to the treatment and following completion of the obinutuzumab, he then continued venetoclax at 400 mg daily. During that time he was found on his routine surveillance cystoscopy to have recurrent superficial bladder cancer and he was recommended to complete a 6-week course of intravesical mitomycin-C. He completed his final intravesical mitomycin-C infusion in April. He continued his venetoclax at 400 mg daily other than having to hold it briefly while he was on antibiotic therapy with ciprofloxacin. He then stopped the venetoclax in October 2020 after completing a year of treatment. His other medical illnesses have been limited to hypertension and superficial bladder cancer. He had smoked in the past, but only for a period of 11 years, and he quit smoking back in 1966. INTERIM HISTORY: He is seen for a follow-up visit. He has been feeling good generally. He has pretty good energy and he has active, though he does have to take breaks more frequently. ECOG score is 1. He has good appetite. He has had a weight gain of about 10 pounds. He does not have fever or night sweats. He has a few allergy related sinus symptoms. He has not had sore mouth or throat. He does not complain of cough. He does have some shortness of breath with activity. He has not been having chest pain. He has no GI or complaints. He does continue follow-up with his urologist for the bladder cancer. Recently has had some pain in his left elbow. He has no other joint or bone pain. He does not complain of headache or dizziness, and he has no focal neurologic symptoms. Medications: Acetaminophen 1 Tablet (of 500 mg) Oral daily, AmLODIPine Besylate 1 (10 mg) Tablet Oral daily, Aspirin 1 (81 mg) Tablet Oral daily, Claritin Tablet Oral PRN, Clotrimazole-Betamethasone (1-0.05 %) Cream Topical daily PRN, Melatonin 1 Capsule (of 10 mg) Oral daily PRN, Metamucil Pack Oral, Multivitamin Adult 1 Tablet Oral daily, Omeprazole 1 (20 mg) Capsule Delayed Release Oral daily, Senna S 1 Tablet (of 8.6-50 mg) Oral daily PRN, Venclexta 4 Tablet (of 100 mg) Oral daily Allergies: Azo Tabs and Iodine. Vital Signs: Performed on Aug 23, 2021 14:38 Height - 72.00 in Weight - 198.2 lbs (HIGH) BSA - 2.12 sq.m BMI - 26.88 Temperature - 98.9 F (HIGH) Pulse - 93 /min Respiration - 17 /min BP - 153/76 mm(hg) (HIGH) O2 Sat - 97 % Pain - 0 Fatigue - 0 Physical Examination: Constitutional - He looks good generally, Eyes - Sclerae nonicteric. Conjunctivae clear, ENMT - No lesions noted in the oral cavity, Hematologic/Lymphatic - No cervical, clavicular, or axillary adenopathy, Respiratory - Lungs sound clear, Cardiovascular - Heart rhythm is regular. There is no murmur, gallop, or rub noted, Abdomen - Soft. Liver and spleen are not enlarged. There is no abdominal mass or ascites noted and there is no inguinal adenopathy, Extremities - No edema, Neurologic - No focal neurologic deficits noted. Lab/Imaging: CBC shows hemoglobin 13.3 g, white blood cell count 7900, and platelet count 231,000. Comprehensive metabolic profile shows stable renal function with BUN 18 and creatinine 1.2 mg/dL. The bilirubin and liver enzymes are normal. LDH is normal 168 U/L. Problem List: 1. Chronic lymphocytic leukemia, Meza stage 0 at initial diagnosis in December 2015, but with subsequent progression to stage III. 2. During follow-up he was found to have iron deficiency anemia. 3. Hypertension. 4. Superficial bladder cancer, on surveillance following TURBT and BCG therapy, completed in April 2020. Problems Addressed with this Encounter and Plan: Patient with chronic lymphocytic leukemia, Meza stage 0 at initial diagnosis in December 2015, but with subsequent progression to stage III. He had initially been followed on observation/expectant management. However, by June 2019 his white count had increased significantly, to 102,000, and at that point his hemoglobin had dropped to 11.9 g, consistent with Meza stage III disease. With that finding, I had recommended that he start treatment. Due to the coronavirus pandemic, he requested to put it off until October. On 11/03/2019 he began cycle 1 of treatment with the obinutuzumab/venetoclax regimen. He tolerated the initial infusions of obinutuzumab well and he also tolerated the venetoclax dose escalation with no adverse effects. He then continued the obinutuzumab infusions monthly together with venetoclax at 400 mg daily. As of 03/22/2020 he completed his 6th and final cycle of obinutuzumab. He had very good clinical response, and he was then able to continue venetoclax at 400 mg daily with no adverse effects. The venetoclax was stopped in October 2020 after completing a full year of treatment. During follow-up he has been doing well clinically, thus far with no evidence of recurrence/progression of the chronic lymphocytic leukemia. He continues on expectant management. I will see him again in 6 months. Signed By: Ish Ruiz M.D. <<Signature on File>>
== END 2021-08-23 14:26 | disposition home or self-care (01) ==
LOC: ONCMED 14:26
PROVIDERS: PCP Family Medicine; Visit Provider Internal Medicine Medical Oncology
DX: C91.10 Chronic lymphocytic leukemia of B-cell type not having achieved remission (principal); I10 Essential (primary) hypertension; Z79.899 Other long term (current) drug therapy; Z87.891 Personal history of nicotine dependence; Z85.51 Personal history of malignant neoplasm of bladder
CPT/HCPCS: G0463

== ENCOUNTER 2022-02-27 09:58 | Oncology outpatient (recurring) (ONCR) | payer MEDICARE, SELFPAY ==
[2022-02-27 11:46] LABS: Basophils # 0.2 10^3/uL (0.0-0.1); Basophils % 1.7 %; Eosinophils # 0.3 10^3/uL (0.0-0.8); Eosinophils % 2.7 %; Lymphocytes # 3.5 10^3/uL (0.8-4.8); Lymphocytes % 34.1 %; Mean Corpuscular HGB Conc 33.3 g/dL (30.0-36.0); Mean Corpuscular Hemoglobin 28.1 pg (28.0-34.0); Mean Corpuscular Volume 84.2 fl (80-94); Mean Platelet Volume 9.6 fL (7.4-10.4); Monocytes # 1.3 10^3/uL (0.2-0.9); Monocytes % 12.7 %; Neutrophils # 4.48 10^3/uL (1.8-7.7); Neutrophils % 43.9 %; Nucleated Red Blood Cells % 0 %; Platelet Count 360 10^3/cmm (130-400); Red Blood Count 4.63 10^6/uL (4.1-5.3); White Blood Count 10.2 10^3/uL (4.0-10.0)
[2022-02-27 12:25] LABS: Alanine Aminotransferase 25 U/L (0-41); Albumin Level 4.2 g/dL (3.5-5.2); Alkaline Phosphatase 83 U/L (40-130); Anion Gap 13.9 (5-19); Aspartate Amino Transferase 19 U/L (0-40); Blood Urea Nitrogen 18 mg/dL (8-23); Calcium 9.3 mg/dL (8.5-10.5); Carbon Dioxide 24 mmol/L (22-29); Chloride 98 mmol/L (98-107); Glucose 85 mg/dL (65-115); Lactate Dehydrogenase 194 U/L (135-225); Osmolality Calculated 275 mOsm/kg (285-295); Potassium 3.9 mmol/L (3.5-5.1); Sodium 132 mmol/L (136-145); Total Bilirubin 0.4 mg/dL (0.15-1.2); Total Protein 7.2 g/dL (6.6-8.7)
== END 2022-03-27 23:59 | disposition home or self-care (01) ==
PROVIDERS: PCP Family Medicine; Visit Provider Internal Medicine Medical Oncology
DX: C91.10 Chronic lymphocytic leukemia of B-cell type not having achieved remission (principal)
CPT/HCPCS: 36415; 80053; 83615; 85025

== ENCOUNTER 2022-06-30 08:17 | Oncology outpatient (recurring) (ONCR) | payer MEDICARE, SELFPAY ==
[2022-06-30 09:30] LABS: Basophils # 0.1 10^3/uL (0.0-0.1); Basophils % 1.4 %; Eosinophils # 1.1 10^3/uL (0.0-0.8); Eosinophils % 13.6 %; Hemoglobin 13.6 g/dL (11.7-16.6); Lymphocytes # 2.9 10^3/uL (0.8-4.8); Lymphocytes % 36.6 %; Mean Corpuscular HGB Conc 32.4 g/dL (30.0-36.0); Mean Corpuscular Hemoglobin 26.4 pg (28.0-34.0); Mean Corpuscular Volume 81.6 fl (80-94); Mean Platelet Volume 9.5 fL (7.4-10.4); Monocytes # 0.9 10^3/uL (0.2-0.9); Monocytes % 11.2 %; Neutrophils # 2.83 10^3/uL (1.8-7.7); Neutrophils % 35.8 %; Nucleated Red Blood Cells % 0 %; Platelet Count 279 10^3/cmm (130-400); Red Blood Count 5.15 10^6/uL (4.1-5.3); Red Cell Distribution Width 14.2 % (12.1-15.1); White Blood Count 7.9 10^3/uL (4.0-10.0)
[2022-06-30 09:53] LABS: Alanine Aminotransferase 28 U/L (0-41); Albumin Level 4.5 g/dL (3.5-5.2); Alkaline Phosphatase 107 U/L (40-130); Anion Gap 16.3 (5-19); Aspartate Amino Transferase 25 U/L (0-40); Blood Urea Nitrogen 18 mg/dL (8-23); Calcium 9.8 mg/dL (8.5-10.5); Carbon Dioxide 25 mmol/L (22-29); Chloride 101 mmol/L (98-107); Glucose 102 mg/dL (65-115); Lactate Dehydrogenase 202 U/L (135-225); Osmolality Calculated 288 mOsm/kg (285-295); Potassium 4.3 mmol/L (3.5-5.1); Sodium 138 mmol/L (136-145); Total Bilirubin 0.4 mg/dL (0.15-1.2); Total Protein 7.5 g/dL (6.6-8.7)
[2022-06-30 09:54] LABS: Creatinine Clr Calc Pharmacy 47.5658
[2022-06-30 14:48] LABS: Iron 67 ug/dL (59-158); Percent Saturation 19.7 % (20-50); Total Iron Binding Capacity 340 mcg/dl; Unsaturated Iron Binding 273 ug/dL (112-347)
== END 2022-07-25 23:59 | disposition home or self-care (01) ==
PROVIDERS: PCP Family Medicine; Visit Provider Internal Medicine Medical Oncology
DX: Z08 Encounter for follow-up examination after completed treatment for malignant neoplasm (principal); Z85.6 Personal history of leukemia; Z92.25 Personal history of immunosuppression therapy; Z86.2 Personal history of diseases of the blood and blood-forming organs and certain disorders involving the immune mechanism
CPT/HCPCS: 36415; 80053; 83540; 83550; 83615; 85025; 99213

== ENCOUNTER 2023-01-04 12:52 | Oncology outpatient (recurring) (ONCR) | payer MEDICARE, SELFPAY ==
[2023-01-04 13:12] VITALS: BP 144/77; PULSE 65; RESP 18; TEMP 36.7; O2SAT 97
[2023-01-04 13:25] LABS: Basophils # 0.1 10^3/uL (0.0-0.1); Basophils % 1.2 %; Eosinophils # 0.8 10^3/uL (0.0-0.8); Eosinophils % 9.8 %; Hematocrit 36.9 % (42.0-52.0); Hemoglobin 12.3 g/dL (11.7-16.6); Lymphocytes # 2.9 10^3/uL (0.8-4.8); Lymphocytes % 35.3 %; Mean Corpuscular HGB Conc 33.3 g/dL (30.0-36.0); Mean Corpuscular Hemoglobin 25.8 pg (28.0-34.0); Mean Corpuscular Volume 77.5 fl (80-94); Mean Platelet Volume 9.3 fL (7.4-10.4); Monocytes # 0.8 10^3/uL (0.2-0.9); Monocytes % 9.1 %; Neutrophils # 3.66 10^3/uL (1.8-7.7); Neutrophils % 44.2 %; Nucleated Red Blood Cells % 0 %; Platelet Count 268 10^3/cmm (130-400); Red Blood Count 4.76 10^6/uL (4.1-5.3); White Blood Count 8.3 10^3/uL (4.0-10.0)
[2023-01-04 13:57] LABS: Alanine Aminotransferase 25 U/L (0-41); Albumin Level 4.2 g/dL (3.5-5.2); Alkaline Phosphatase 70 U/L (40-130); Anion Gap 15.1 (5-19); Aspartate Amino Transferase 27 U/L (0-40); Blood Urea Nitrogen 17 mg/dL (8-23); Calcium 9.1 mg/dL (8.5-10.5); Carbon Dioxide 22 mmol/L (22-29); Chloride 100 mmol/L (98-107); Creatinine Clr Calc Pharmacy 45.9998; Globulin 2.9 g/dL (1.3-4.6); Glucose 93 mg/dL (65-115); Lactate Dehydrogenase 159 U/L (135-225); Osmolality Calculated 277 mOsm/kg (285-295); Potassium 4.1 mmol/L (3.5-5.1); Sodium 133 mmol/L (136-145); Total Bilirubin 0.3 mg/dL (0.15-1.2); Total Protein 7.1 g/dL (6.6-8.7)
== END 2023-01-25 23:59 | disposition home or self-care (01) ==
PROVIDERS: Nurse Practitioner Family; PCP Family Medicine; Visit Provider Internal Medicine Medical Oncology
DX: Z08 Encounter for follow-up examination after completed treatment for malignant neoplasm (principal); Z85.6 Personal history of leukemia; Z87.891 Personal history of nicotine dependence; Z86.2 Personal history of diseases of the blood and blood-forming organs and certain disorders involving the immune mechanism; Z92.25 Personal history of immunosuppression therapy
CPT/HCPCS: 36415; 80053; 83615; 85025; 99214

== ENCOUNTER 2023-08-07 08:35 | Outpatient (CLI) | payer MEDICARE, SELFPAY | END 2023-08-07 08:36 | disposition home or self-care (01) | LOC: LAB 08:36 | PROVIDERS: PCP Family Medicine; Visit Provider Internal Medicine | DX: Z86.2 Personal history of diseases of the blood and blood-forming organs and certain disorders involving the immune mechanism (principal) | CPT/HCPCS: 82274 ==

== ENCOUNTER 2023-08-07 09:00 | Oncology outpatient (recurring) (ONCR) | payer MEDICARE, SELFPAY ==
[2023-08-01 12:10] LABS: Basophils # 0.1 10^3/uL (0.0-0.1); Basophils % 1.7 %; Eosinophils # 0.6 10^3/uL (0.0-0.8); Eosinophils % 8.9 %; Hematocrit 33.3 % (37-53); Lymphocytes # 2.8 10^3/uL (0.8-4.8); Lymphocytes % 44.7 %; Mean Corpuscular HGB Conc 32.4 g/dL (30-55); Mean Corpuscular Hemoglobin 24.8 pg (27-33); Mean Corpuscular Volume 76.4 fl (82-101); Mean Platelet Volume 8.9 fL (7.4-10.4); Monocytes # 0.9 10^3/uL (0.2-0.9); Neutrophils % 30.2 %; Nucleated Red Blood Cells % 0 %; Platelet Count 296 10^3/cmm (157-399); Red Blood Count 4.36 10^6/uL (3.85-5.65); Red Cell Distribution Width 16.5 % (12.1-15.1); White Blood Count 6.29 10^3/uL (3.29-11.43)
[2023-08-01 12:43] LABS: Alanine Aminotransferase 47 U/L (0-41); Albumin Level 3.9 g/dL (3.5-5.2); Alkaline Phosphatase 71 U/L (40-130); Anion Gap 13.3 (5-19); Aspartate Amino Transferase 34 U/L (0-40); Blood Urea Nitrogen 15 mg/dL (8-23); Calcium 8.4 mg/dL (8.5-10.5); Carbon Dioxide 23 mmol/L (22-29); Chloride 101 mmol/L (98-107); Ferritin 20 ng/mL (30-400); Globulin 2.7 g/dL (1.3-4.6); Glucose 96 mg/dL (65-115); Iron 30 ug/dL (59-158); Lactate Dehydrogenase 243 U/L (135-225); Osmolality Calculated 277 mOsm/kg (285-295); Percent Saturation 9.8 % (20-50); Potassium 4.3 mmol/L (3.5-5.1); Sodium 133 mmol/L (136-145); Total Bilirubin 0.3 mg/dL (0.15-1.2); Total Iron Binding Capacity 305 mcg/dl; Total Protein 6.6 g/dL (6.6-8.7); Unsaturated Iron Binding 275 ug/dL (112-347)
[2023-08-01 13:57] LABS: Reticulocyte % 2.1 % (0.5-2.0)
[2023-08-01 14:19] LABS: Uric Acid 6.4 mg/dL (3.4-7.0)
[2023-08-01 14:54] LABS: Bilirubin Urine Neg (Negative); Blood Urine Neg (Negative); Glucose Urine UA Norm (Normal); Ketones Urine Negative (Negative); Leukocyte Esterase Urine Negative (Negative); Nitrate Urine Negative (Negative); Protein Urine Neg (Negative); Urine Appearance Clear (CLEAR); Urine Color Yellow (Yellow); Urobilinogen Urine Norm (Negative); pH Urine 6 (5-7)
[2023-08-01 15:02] LABS: LAB Peripheral Smear Sent for Review
[2023-08-01 15:25] LABS: Add Urine Culture? No; Bacteria Urine TRACE /hpf; Mucus Urine 1+ /hpf; RBC Urine 0-4 /hpf (0-2); Squamous Epithelial Cell Urine 0-4 /hpf (0-5); WBC Urine 0-4 /hpf (0-5)
[2023-08-07] MEDS: iron sucrose 500 MG in sodium chloride 0.9% 250 ML 78 MG IV (09:20)
[2023-08-07] MEDS: sodium chloride 0.9% 250 ML 75 ML IV (09:20)
[2023-08-07 09:23] VITALS: BP 141/74; PULSE 68; RESP 16; TEMP 36.9; O2SAT 98
[2023-08-07 13:21] VITALS: BP 166/67; PULSE 73; RESP 17; TEMP 36.7; O2SAT 97
== END 2023-08-26 23:59 | disposition home or self-care (01) ==
PROVIDERS: Internal Medicine; PCP Family Medicine; Visit Provider Internal Medicine Medical Oncology
DX: Z53.9 Procedure and treatment not carried out, unspecified reason (principal); C91.10 Chronic lymphocytic leukemia of B-cell type not having achieved remission; Z86.2 Personal history of diseases of the blood and blood-forming organs and certain disorders involving the immune mechanism
CPT/HCPCS: 36415; 80053; 80503; 81001; 82274; 82728; 83010; 83540; 83550; 83615; 84550; 85025; 85045; 86880; 96365; 96366; 99214; J1756; J7050

== ENCOUNTER 2023-08-28 08:40 | Oncology outpatient (recurring) (ONCR) | payer MEDICARE, SELFPAY ==
[2023-08-28 08:45] VITALS: BP 137/65; PULSE 69; RESP 17; TEMP 36.9; O2SAT 98
[2023-08-28] MEDS: sodium chloride 0.9% 250 ML 75 ML IV (08:59)
[2023-08-28] MEDS: iron sucrose 500 MG in sodium chloride 0.9% 250 ML 78 MG IV (09:37)
[2023-08-28 12:13] VITALS: BP 128/68; PULSE 66; RESP 16; TEMP 36.4; O2SAT 96
[2023-08-28 12:15] VITALS: BP 128/68; PULSE 88; RESP 17; TEMP 36.4; O2SAT 96
== END 2023-09-25 23:59 | disposition home or self-care (01) ==
LOC: ONCMED 08:41
PROVIDERS: PCP Family Medicine; Visit Provider Internal Medicine Medical Oncology
DX: Z86.2 Personal history of diseases of the blood and blood-forming organs and certain disorders involving the immune mechanism; D50.9 Iron deficiency anemia, unspecified; C91.10 Chronic lymphocytic leukemia of B-cell type not having achieved remission
CPT/HCPCS: 96365; 96366; J1756; J7050

== ENCOUNTER 2023-10-26 08:44 | Oncology outpatient (recurring) (ONCR) | payer MEDICARE, SELFPAY ==
[2023-10-26 10:13] LABS: Basophils # 0.2 10^3/uL (0.0-0.1); Basophils % 1.6 %; Eosinophils # 0.7 10^3/uL (0.0-0.8); Eosinophils % 7.2 %; Hematocrit 41.6 % (37-53); Lymphocytes # 4.1 10^3/uL (0.8-4.8); Lymphocytes % 44.9 %; Mean Corpuscular HGB Conc 34.1 g/dL (30-55); Mean Corpuscular Hemoglobin 28.2 pg (27-33); Mean Corpuscular Volume 82.5 fl (82-101); Mean Platelet Volume 8.9 fL (7.4-10.4); Monocytes # 1.1 10^3/uL (0.2-0.9); Monocytes % 11.8 %; Neutrophils # 3.14 10^3/uL (1.8-7.7); Neutrophils % 34.2 %; Nucleated Red Blood Cells % 0 %; Platelet Count 224 10^3/cmm (157-399); Red Blood Count 5.04 10^6/uL (3.85-5.65); Red Cell Distribution Width 17.5 % (12.1-15.1)
[2023-10-26 10:16] LABS: Reticulocyte % 2.8 % (0.5-2.0)
[2023-10-26 10:32] LABS: Alanine Aminotransferase 41 U/L (0-41); Albumin Level 4.2 g/dL (3.5-5.2); Alkaline Phosphatase 73 U/L (40-130); Anion Gap 13.9 (5-19); Aspartate Amino Transferase 29 U/L (0-40); Blood Urea Nitrogen 14 mg/dL (8-23); Calcium 8.7 mg/dL (8.5-10.5); Carbon Dioxide 23 mmol/L (22-29); Chloride 102 mmol/L (98-107); Ferritin 106 ng/mL (30-400); Globulin 3.2 g/dL (1.3-4.6); Glucose 94 mg/dL (65-115); Iron 82 ug/dL (59-158); Lactate Dehydrogenase 189 U/L (135-225); Osmolality Calculated 280 mOsm/kg (285-295); Percent Saturation 28.2 % (20-50); Potassium 3.9 mmol/L (3.5-5.1); Sodium 135 mmol/L (136-145); Total Bilirubin 0.5 mg/dL (0.15-1.2); Total Iron Binding Capacity 290 mcg/dl; Total Protein 7.4 g/dL (6.6-8.7); Unsaturated Iron Binding 208 ug/dL (112-347); Uric Acid 6.3 mg/dL (3.4-7.0)
== END 2023-10-26 23:59 | disposition home or self-care (01) ==
LOC: ONCMED 08:44
PROVIDERS: Internal Medicine; PCP Family Medicine; Visit Provider Internal Medicine Medical Oncology
DX: Z86.2 Personal history of diseases of the blood and blood-forming organs and certain disorders involving the immune mechanism (principal)
CPT/HCPCS: 36415; 80053; 82728; 83540; 83550; 83615; 84550; 85025; 85045

== ENCOUNTER 2023-11-05 14:39 | Oncology outpatient (recurring) (ONCR) | payer MEDICARE, SELFPAY | END 2023-11-25 23:59 | disposition home or self-care (01) | PROVIDERS: PCP Family Medicine; Visit Provider Internal Medicine Medical Oncology | DX: Z86.2 Personal history of diseases of the blood and blood-forming organs and certain disorders involving the immune mechanism (principal) | CPT/HCPCS: 99214 ==

== ENCOUNTER 2024-02-05 11:19 | Oncology outpatient (recurring) (ONCR) | payer MEDICARE, SELFPAY ==
[2024-02-05 12:04] LABS: Basophils # 0.2 10^3/uL (0.0-0.1); Basophils % 1.5 %; Eosinophils # 1.1 10^3/uL (0.0-0.8); Eosinophils % 8.8 %; Hematocrit 42.2 % (37-53); Lymphocytes # 6.3 10^3/uL (0.8-4.8); Lymphocytes % 51.2 %; Mean Corpuscular HGB Conc 34.8 g/dL (30-55); Mean Corpuscular Hemoglobin 29.3 pg (27-33); Mean Corpuscular Volume 84.2 fl (82-101); Monocytes # 1.3 10^3/uL (0.2-0.9); Monocytes % 10.3 %; Neutrophils # 3.43 10^3/uL (1.8-7.7); Neutrophils % 27.9 %; Nucleated Red Blood Cells % 0 %; Platelet Count 202 10^3/cmm (157-399); Red Blood Count 5.01 10^6/uL (3.85-5.65); Red Cell Distribution Width 13.9 % (12.1-15.1); White Blood Count 12.28 10^3/uL (3.29-11.43)
[2024-02-05 12:19] LABS: Alanine Aminotransferase 32 U/L (0-41); Albumin Level 4.3 g/dL (3.5-5.2); Alkaline Phosphatase 73 U/L (40-130); Anion Gap 14.8 (5-19); Aspartate Amino Transferase 23 U/L (0-40); Blood Urea Nitrogen 16 mg/dL (8-23); Calcium 9.5 mg/dL (8.5-10.5); Carbon Dioxide 23 mmol/L (22-29); Chloride 99 mmol/L (98-107); Ferritin 67 ng/mL (30-400); Globulin 3.1 g/dL (1.3-4.6); Glucose 88 mg/dL (65-115); Iron 85 ug/dL (59-158); Lactate Dehydrogenase 220 U/L (135-225); Osmolality Calculated 277 mOsm/kg (285-295); Percent Saturation 28.8 % (20-50); Potassium 3.8 mmol/L (3.5-5.1); Sodium 133 mmol/L (136-145); Total Bilirubin 0.5 mg/dL (0.15-1.2); Total Iron Binding Capacity 295 mcg/dl; Total Protein 7.4 g/dL (6.6-8.7); Unsaturated Iron Binding 210 ug/dL (112-347)
== END 2024-02-25 23:59 | disposition home or self-care (01) ==
PROVIDERS: Nurse Practitioner Family; PCP Family Medicine; Visit Provider Internal Medicine Medical Oncology
DX: C91.10 Chronic lymphocytic leukemia of B-cell type not having achieved remission (principal); D50.9 Iron deficiency anemia, unspecified; Z86.2 Personal history of diseases of the blood and blood-forming organs and certain disorders involving the immune mechanism
CPT/HCPCS: 36415; 80053; 82728; 83540; 83550; 83615; 85025; 99214

== ENCOUNTER 2024-05-05 13:10 | Oncology outpatient (recurring) (ONCR) | payer MEDICARE, SELFPAY ==
[2024-05-05 13:45] LABS: Hematocrit 40.2 % (37-53); Mean Corpuscular HGB Conc 34.3 g/dL (30-55); Mean Corpuscular Hemoglobin 29.4 pg (27-33); Mean Corpuscular Volume 85.5 fl (82-101); Mean Platelet Volume 8.8 fL (7.4-10.4); Platelet Count 206 10^3/cmm (157-399); Red Cell Distribution Width 13.8 % (12.1-15.1); White Blood Count 15.65 10^3/uL (3.29-11.43)
[2024-05-05 14:06] LABS: Alanine Aminotransferase 28 U/L (0-41); Albumin Level 4.2 g/dL (3.5-5.2); Alkaline Phosphatase 72 U/L (40-130); Anion Gap 15.1 (5-19); Aspartate Amino Transferase 30 U/L (0-40); Blood Urea Nitrogen 19 mg/dL (8-23); Calcium 9.4 mg/dL (8.5-10.5); Carbon Dioxide 22 mmol/L (22-29); Chloride 98 mmol/L (98-107); Ferritin 37 ng/mL (30-400); Globulin 3.2 g/dL (1.3-4.6); Glucose 90 mg/dL (65-115); Iron 60 ug/dL (59-158); Osmolality Calculated 274 mOsm/kg (285-295); Percent Saturation 18.4 % (20-50); Potassium 4.1 mmol/L (3.5-5.1); Sodium 131 mmol/L (136-145); Total Bilirubin 0.4 mg/dL (0.15-1.2); Total Iron Binding Capacity 325 mcg/dl; Total Protein 7.4 g/dL (6.6-8.7); Unsaturated Iron Binding 265 ug/dL (112-347)
[2024-05-05 14:21] LABS: Absolute Eosinophils 0.8 10^3/cmm (0.0-0.7); Absolute Segmented Neutrophil 6.1 10/cmm (1.6-7.1); Band Neutrophils Absolute 0.2 10^3/cmm (0.0-1.2); Eosinophils 5 %; Lymphocytes 12 %; Monocytes Absolute 0.6 10^3/cmm (0.1-0.6); Segmented Neutrophils 39 %; Slide Review Slide Review Perform; Total Cells Counted 100 (0-100)
[2024-05-05 14:22] LABS: Absolute Neutrophil 6.3 10^3/cmm (1.4-6.5); Platelet Estimate Normal (Normal)
== END 2024-05-27 23:59 | disposition home or self-care (01) ==
PROVIDERS: Nurse Practitioner Family; PCP Family Medicine; Visit Provider Internal Medicine Medical Oncology
DX: C91.10 Chronic lymphocytic leukemia of B-cell type not having achieved remission (principal); D50.9 Iron deficiency anemia, unspecified; Z86.2 Personal history of diseases of the blood and blood-forming organs and certain disorders involving the immune mechanism
CPT/HCPCS: 36415; 80053; 82728; 83540; 83550; 85007; 85025; 99214

== ENCOUNTER 2024-08-13 10:16 | Oncology outpatient (recurring) (ONCR) | payer MEDICARE, SELFPAY ==
[2024-08-13 11:22] LABS: Hematocrit 41.1 % (37-53); Mean Corpuscular HGB Conc 33.6 g/dL (30-55); Mean Corpuscular Hemoglobin 28.6 pg (27-33); Mean Corpuscular Volume 85.1 fl (82-101); Mean Platelet Volume 9.6 fL (7.4-10.4); Platelet Count 232 10^3/cmm (157-399); Red Blood Count 4.83 10^6/uL (3.85-5.65); Red Cell Distribution Width 15.3 % (12.1-15.1); White Blood Count 23.56 10^3/uL (3.29-11.43)
[2024-08-13 11:46] LABS: Alanine Aminotransferase 21 U/L (0-41); Albumin Level 4.3 g/dL (3.5-5.2); Alkaline Phosphatase 78 U/L (40-130); Anion Gap 15.2 (5-19); Aspartate Amino Transferase 24 U/L (0-40); Blood Urea Nitrogen 17 mg/dL (8-23); Calcium 9.1 mg/dL (8.5-10.5); Carbon Dioxide 23 mmol/L (22-29); Chloride 103 mmol/L (98-107); Ferritin 46 ng/mL (30-400); Globulin 2.8 g/dL (1.3-4.6); Glucose 82 mg/dL (65-115); Iron 163 ug/dL (59-158); Lactate Dehydrogenase 239 U/L (135-225); Osmolality Calculated 285 mOsm/kg (285-295); Percent Saturation 54.5 % (20-50); Potassium 4.2 mmol/L (3.5-5.1); Sodium 137 mmol/L (136-145); Total Bilirubin 0.4 mg/dL (0.15-1.2); Total Iron Binding Capacity 299 mcg/dl; Total Protein 7.1 g/dL (6.6-8.7); Unsaturated Iron Binding 136 ug/dL (112-347)
[2024-08-13 11:47] LABS: Slide Review Slide Review Perform
[2024-08-13 11:48] LABS: Absolute Eosinophils 1.6 10^3/cmm (0.0-0.7); Absolute Neutrophil 7.5 10^3/cmm (1.4-6.5); Absolute Segmented Neutrophil 7.3 10/cmm (1.6-7.1); Anisocytosis Trace; Band Neutrophils Absolute 0.2 10^3/cmm (0.0-1.2); Basophils Absolute 0.7 10^3/cmm (0.0-0.2); Eosinophils 7 %; Lymphocytes 39 %; Lymphocytes Absolute 11.8 10^3/cmm (1.2-3.4); Monocytes Absolute 1.6 10^3/cmm (0.1-0.6); Platelet Estimate Normal (Normal); Segmented Neutrophils 31 %; Total Cells Counted 100 (0-100)
== END 2024-08-25 23:59 | disposition home or self-care (01) ==
PROVIDERS: Nurse Practitioner Family; PCP Family Medicine; Visit Provider Internal Medicine
DX: Z08 Encounter for follow-up examination after completed treatment for malignant neoplasm (principal); Z85.6 Personal history of leukemia; C67.9 Malignant neoplasm of bladder, unspecified; D50.9 Iron deficiency anemia, unspecified
CPT/HCPCS: 36415; 80053; 82728; 83540; 83550; 83615; 85007; 85025; 99214

== ENCOUNTER 2024-11-12 12:12 | Oncology outpatient (recurring) (ONCR) | payer MEDICARE, SELFPAY ==
[2024-11-12 12:23] LABS: Hematocrit 35.4 % (37-53); Mean Corpuscular HGB Conc 33.6 g/dL (30-55); Mean Corpuscular Hemoglobin 29.7 pg (27-33); Mean Corpuscular Volume 88.3 fl (82-101); Mean Platelet Volume 8.6 fL (7.4-10.4); Platelet Count 216 10^3/cmm (157-399); Red Blood Count 4.01 10^6/uL (3.85-5.65); Red Cell Distribution Width 16.3 % (12.1-15.1); White Blood Count 19.81 10^3/uL (3.29-11.43)
[2024-11-12 12:44] LABS: Alanine Aminotransferase 19 U/L (0-41); Albumin Level 3.8 g/dL (3.5-5.2); Alkaline Phosphatase 99 U/L (40-130); Anion Gap 16.3 (5-19); Aspartate Amino Transferase 28 U/L (0-40); Blood Urea Nitrogen 11 mg/dL (8-23); Calcium 8.5 mg/dL (8.5-10.5); Carbon Dioxide 21 mmol/L (22-29); Chloride 101 mmol/L (98-107); Ferritin 187 ng/mL (30-400); Globulin 3.2 g/dL (1.3-4.6); Glucose 93 mg/dL (65-115); Iron 89 ug/dL (59-158); Osmolality Calculated 277 mOsm/kg (285-295); Percent Saturation 29.8 % (20-50); Potassium 4.3 mmol/L (3.5-5.1); Sodium 134 mmol/L (136-145); Total Bilirubin 0.6 mg/dL (0.15-1.2); Total Iron Binding Capacity 298 mcg/dl; Unsaturated Iron Binding 209 ug/dL (112-347)
[2024-11-12 12:57] LABS: Slide Review Slide Review Perform
[2024-11-12 13:37] LABS: Total Cells Counted 100 (0-100)
[2024-11-12 13:38] LABS: Absolute Neutrophil 5.3 10^3/cmm (1.4-6.5); Absolute Segmented Neutrophil 5.2 10/cmm (1.6-7.1); Band Neutrophils Absolute 0.2 10^3/cmm (0.0-1.2); Eosinophils 5 %; Lymphocytes 46 %; Lymphocytes Absolute 12.5 10^3/cmm (1.2-3.4); Platelet Estimate Normal (Normal); Segmented Neutrophils 26 %
== END 2024-11-24 23:59 | disposition home or self-care (01) ==
PROVIDERS: Nurse Practitioner Family; PCP Family Medicine; Visit Provider Internal Medicine
DX: C91.10 Chronic lymphocytic leukemia of B-cell type not having achieved remission (principal); D50.9 Iron deficiency anemia, unspecified; C67.9 Malignant neoplasm of bladder, unspecified; Z87.891 Personal history of nicotine dependence; Z79.899 Other long term (current) drug therapy
CPT/HCPCS: 36415; 80053; 82728; 83540; 83550; 85007; 85025; 99213

== ENCOUNTER 2025-02-11 11:20 | Oncology outpatient (recurring) (ONCR) | payer MEDICARE, SELFPAY ==
[2025-02-11 11:52] LABS: Hematocrit 40.5 % (37-53); Hemoglobin 13.40 g/dL (11.27-16.99); Mean Corpuscular HGB Conc 33.1 g/dL (30-55); Mean Corpuscular Hemoglobin 28.2 pg (27-33); Mean Corpuscular Volume 85.3 fl (82-101); Platelet Count 273 10^3/cmm (157-399); Red Blood Count 4.75 10^6/uL (3.85-5.65)
[2025-02-11 12:16] LABS: Alanine Aminotransferase 16 U/L (0-41); Albumin Level 4.1 g/dL (3.5-5.2); Alkaline Phosphatase 74 U/L (40-130); Anion Gap 14.2 (5-19); Aspartate Amino Transferase 23 U/L (0-40); Blood Urea Nitrogen 17 mg/dL (8-23); Calcium 9.6 mg/dL (8.5-10.5); Carbon Dioxide 24 mmol/L (22-29); Chloride 98 mmol/L (98-107); Creatinine Clr Calc Pharmacy 51.5807; Globulin 4.7 g/dL (1.3-4.6); Glucose 93 mg/dL (65-115); Osmolality Calculated 275 mOsm/kg (285-295); Potassium 4.2 mmol/L (3.5-5.1); Sodium 132 mmol/L (136-145); Total Protein 8.8 g/dL (6.6-8.7)
[2025-02-11 12:19] LABS: White Blood Count 49.89 10^3/uL (3.29-11.43)
[2025-02-11 12:24] LABS: Slide Review Slide Review Perform
[2025-02-11 12:25] LABS: Absolute Segmented Neutrophil 7.5 10/cmm (1.6-7.1); Atypical Lymphs 12.0 % (0-5); Band Neutrophils Absolute 0.0 10^3/cmm (0.0-1.2); Smudge Cells 1+; Total Cells Counted 100 (0-100)
[2025-02-12 06:05] LABS: PROTEIN, TOTAL 8.5 g/dL (6.1-8.1)
[2025-02-13 09:35] LABS: ALPHA 1 GLOBULIN 0.3 g/dL (0.2-0.3); ALPHA 2 GLOBULIN 0.9 g/dL (0.5-0.9); BETA 1 GLOBULIN 0.4 g/dL (0.4-0.6); BETA 2 GLOBULIN 0.3 g/dL (0.2-0.5)
== END 2025-02-24 23:59 | disposition home or self-care (01) ==
PROVIDERS: PCP Family Medicine; Visit Provider Internal Medicine
DX: Z08 Encounter for follow-up examination after completed treatment for malignant neoplasm (principal); Z85.6 Personal history of leukemia; Z85.51 Personal history of malignant neoplasm of bladder; D50.9 Iron deficiency anemia, unspecified
CPT/HCPCS: 36415; 80053; 82784; 83615; 84155; 84165; 85007; 85025; 86334; 99214

== ENCOUNTER 2025-03-11 10:03 | Oncology outpatient (recurring) (ONCR) | payer MEDICARE, SELFPAY ==
[2025-03-11 10:29] LABS: Hematocrit 40.9 % (37-53); Hemoglobin 13.70 g/dL (11.27-16.99); Mean Corpuscular HGB Conc 33.5 g/dL (30-55); Mean Corpuscular Hemoglobin 29.1 pg (27-33); Mean Corpuscular Volume 86.8 fl (82-101); Platelet Count 266 10^3/cmm (157-399); Red Blood Count 4.71 10^6/uL (3.85-5.65)
[2025-03-11 10:49] LABS: White Blood Count 60.33 10^3/uL (3.29-11.43)
[2025-03-11 10:53] LABS: Alanine Aminotransferase 23 U/L (0-41); Albumin Level 4.5 g/dL (3.5-5.2); Alkaline Phosphatase 69 U/L (40-130); Anion Gap 16.0 (5-19); Aspartate Amino Transferase 29 U/L (0-40); Blood Urea Nitrogen 17 mg/dL (8-23); Calcium 9.4 mg/dL (8.5-10.5); Carbon Dioxide 24 mmol/L (22-29); Chloride 98 mmol/L (98-107); Creatinine Clr Calc Pharmacy 62.3202; Globulin 4.2 g/dL (1.3-4.6); Glucose 102 mg/dL (65-115); Osmolality Calculated 280 mOsm/kg (285-295); Potassium 4.0 mmol/L (3.5-5.1); Sodium 134 mmol/L (136-145); Total Protein 8.7 g/dL (6.6-8.7)
[2025-03-11 10:54] LABS: Absolute Segmented Neutrophil 3.0 10/cmm (1.6-7.1); Band Neutrophils Absolute 0.0 10^3/cmm (0.0-1.2); Slide Review Slide Review Perform; Total Cells Counted 100 (0-100)
[2025-03-11 10:55] LABS: Atypical Lymphs 19.0 % (0-5); Smudge Cells 1+
[2025-03-12 07:49] LABS: PROTEIN, TOTAL 8.6 g/dL (6.1-8.1)
[2025-03-12 09:44] LABS: Creatinine, Random Urine 81 mg/dL (20-320); Protein, Total, Random 14 mg/dL (5-25); Protein/Creatinine Ratio 0.173 (0.025-0.148); Protein/Creatinine Ratio 173 mg/g creat (25-148)
[2025-03-12 16:35] LABS: Albumin,Urine Random 18 %; Alpha-1-Globulins Urine Random 7 %; Alpha-2-Globulins Urine Random 15 %; Beta-Globulin,Urine Random 17 %; Gamma Globulin,Urine Random 44 %
[2025-03-13 10:14] LABS: ALPHA 1 GLOBULIN 0.3 g/dL (0.2-0.3); ALPHA 2 GLOBULIN 0.9 g/dL (0.5-0.9); BETA 1 GLOBULIN 0.4 g/dL (0.4-0.6); BETA 2 GLOBULIN 0.3 g/dL (0.2-0.5)
== END 2025-03-27 23:59 | disposition home or self-care (01) ==
PROVIDERS: Nurse Practitioner; PCP Family Medicine; Visit Provider Internal Medicine
DX: Z53.9 Procedure and treatment not carried out, unspecified reason; Z08 Encounter for follow-up examination after completed treatment for malignant neoplasm; Z85.6 Personal history of leukemia; D50.9 Iron deficiency anemia, unspecified; Z85.51 Personal history of malignant neoplasm of bladder; Z92.21 Personal history of antineoplastic chemotherapy
CPT/HCPCS: 36415; 80053; 82570; 82784; 83615; 84155; 84156; 84165; 84166; 85007; 85025; 85651; 86334; 99213

== ENCOUNTER 2025-04-20 13:11 | Oncology outpatient (recurring) (ONCR) | payer MEDICARE, SELFPAY ==
[2025-04-20 13:39] LABS: Hematocrit 36.8 % (37-53); Hemoglobin 12.20 g/dL (11.27-16.99); Mean Corpuscular HGB Conc 33.2 g/dL (30-55); Mean Corpuscular Hemoglobin 29.2 pg (27-33); Mean Corpuscular Volume 88.0 fl (82-101); Platelet Count 289 10^3/cmm (157-399); Red Blood Count 4.18 10^6/uL (3.85-5.65)
[2025-04-20 13:56] LABS: Alanine Aminotransferase 16 U/L (0-41); Albumin Level 3.8 g/dL (3.5-5.2); Alkaline Phosphatase 95 U/L (40-130); Anion Gap 13.3 (5-19); Aspartate Amino Transferase 20 U/L (0-40); Blood Urea Nitrogen 14 mg/dL (8-23); Calcium 9.0 mg/dL (8.5-10.5); Carbon Dioxide 24 mmol/L (22-29); Chloride 100 mmol/L (98-107); Globulin 3.5 g/dL (1.3-4.6); Glucose 79 mg/dL (65-115); Osmolality Calculated 275 mOsm/kg (285-295); Potassium 4.3 mmol/L (3.5-5.1); Sodium 133 mmol/L (136-145); Total Protein 7.3 g/dL (6.6-8.7)
[2025-04-20 14:11] LABS: Ferritin 134 ng/mL (30-400)
[2025-04-20 14:19] LABS: White Blood Count 77.11 10^3/uL (3.29-11.43)
[2025-04-20 14:26] LABS: Absolute Segmented Neutrophil 10.0 10/cmm (1.6-7.1); Atypical Lymphs 32.0 % (0-5); Band Neutrophils Absolute 0.0 10^3/cmm (0.0-1.2); Total Cells Counted 100 (0-100)
[2025-04-21 07:10] LABS: PROTEIN, TOTAL 7.0 g/dL (6.1-8.1)
[2025-04-21 10:24] LABS: Creatinine, Random Urine 123 mg/dL (20-320); Protein, Total, Random 23 mg/dL (5-25); Protein/Creatinine Ratio 0.187 (0.025-0.148); Protein/Creatinine Ratio 187 mg/g creat (25-148)
[2025-04-22 08:59] LABS: ALPHA 1 GLOBULIN 0.5 g/dL (0.2-0.3); ALPHA 2 GLOBULIN 1.1 g/dL (0.5-0.9); BETA 1 GLOBULIN 0.4 g/dL (0.4-0.6); BETA 2 GLOBULIN 0.4 g/dL (0.2-0.5)
== END 2025-04-26 23:59 | disposition home or self-care (01) ==
PROVIDERS: Internal Medicine Medical Oncology; PCP Family Medicine; Visit Provider Internal Medicine
DX: C91.10 Chronic lymphocytic leukemia of B-cell type not having achieved remission (principal); Z86.2 Personal history of diseases of the blood and blood-forming organs and certain disorders involving the immune mechanism
CPT/HCPCS: 36415; 80053; 82570; 82728; 82784; 83615; 84155; 84156; 84165; 84166; 85007; 85025; 85651; 86334

== ENCOUNTER 2025-04-29 07:34 | Oncology outpatient (recurring) (ONCR) | payer MEDICARE, SELFPAY ==
--- NOTE | 2025-04-29 08:45 | CTR_ITS ---
PROCEDURE INFORMATION: Exam: CT Neck With Contrast Exam date and time: 04/29/2025 9:20 AM Age: 84 years old Clinical indication: Condition or disease; Follow up cll, bladder cancer x 2 TECHNIQUE: Imaging protocol: Computed tomography of the neck with contrast. Radiation optimization: All CT scans at this facility use at least one of these dose optimization techniques: automated exposure control; mA and/or kV adjustment per patient size (includes targeted exams where dose is matched to clinical indication); or iterative reconstruction. Contrast material: OMNIPAQUE 350; Contrast volume: 100 ml; Contrast route: INTRAVENOUS (IV); COMPARISON: CT chest abdpel w/*[id number] 04/29/2025 9:14 AM RADIATION DOSE METRICS: Total DLP (mGy-cm): 190.28 FINDINGS: Brain: Areas of decreased density and potential encephalomalacia is present within the left occipital lobe. Findings could correspond to sequela of prior infarct. This exam is not optimized to evaluate the brain. Uppermost images demonstrate potential subtle areas of slight increased density within the left occipital lobe which may correspond to overlapping densities. This is not completely assessed or evaluated on this exam. Paranasal sinuses: Visualized portion of the paranasal sinuses are essentially clear. Mastoid air cells: Mastoid air cells are well-aerated. Salivary glands: Major salivary glands appear unremarkable. Pharynx: Posterior nasopharyngeal soft tissues appear unremarkable. Mild prominence of the uvula. No abnormal enhancement or suspicious mass. Lingual and palatine tonsils appear unremarkable. No pharyngeal mass. Epiglottis appears unremarkable. Larynx: Larynx appears unremarkable. Thyroid: Thyroid gland appears unremarkable. Trachea: Airway is patent. Lungs: 2.8 mm nodule near the right lung apex is similar. 3.5 mm nodule within the right upper lobe (image 95 of series 3) likely is unchanged. Esophagus: Esophagus is partly distended with air. Lymph nodes: There are numerous small level 4 lymph nodes present on the right and left. Largest on the left measures up to 11 x 7 mm. Largest on the right measures up to 9 x 6 mm on the axial images. Prominent lymph nodes are present within the upper mediastinum along the tracheoesophageal groove. Largest measures up to 16 x 9 mm. Partial visualization of prominent precarinal lymph nodes measuring up to 11 mm in short axis. Numerous additional small lymph nodes are present within the prevascular space and along the aortopulmonary window. Numerous small level 2 and level 3 lymph nodes are present. These are not enlarged or suspicious by size criteria. No enlarged or suspicious posterior cervical chain lymph nodes. Numerous small shotty upper axillary lymph nodes are present. Vasculature: Minimal atherosclerotic plaque at the aortic arch and extending into the origin of the left common carotid artery and left subclavian artery. Peripheral atherosclerotic plaque of the right and left carotid bulb. No high-grade stenosis. Vertebral arteries are patent. This exam is not optimized to evaluate the vasculature. Bones/joints: There are no suspicious lytic or sclerotic bone lesions. No acute fracture. Mild scoliosis. Advanced disc space narrowing and degenerative endplate changes present at the C6-C7 level. Multilevel degenerative facet arthropathy. No areas of severe central spinal canal stenosis. Multilevel neural foraminal narrowing. Severe left foraminal narrowing at C6-C7. [id number] right foraminal narrowing at C6-C7. There is incomplete fusion an irregular contour along the posterior elements of C2, C3 and C4 which may be congenital, posttraumatic or postsurgical. Please correlate with patient's history. Soft tissues: No suspicious neck mass or fluid collection. CT/CT neck w con* [id number] IMPRESSION: 1. Area of decreased density and potential encephalomalacia is present within the left occipital lobe. Findings could correspond to sequela of prior infarct. This exam is not optimized to evaluate the brain. Uppermost images demonstrate potential subtle areas of slight increased density within the left occipital lobe which may correspond to overlapping densities. This is not completely assessed or evaluated on this exam. Follow-up CT scan or MRI of the brain should be considered for further evaluation. 2. There are a few mildly prominent level 4 lymph nodes on the right and left as described. Mildly prominent pretracheal and precarinal lymph nodes are present within the visualized portion of the mediastinum. Additional shotty lymph nodes are present within the prevascular space and along the aortopulmonary window. Mildly prominent lymph nodes are present along paraesophageal groove. 3. Small nodules within the right upper lobe likely are similar. Slice thickness on prior CT scan limits direct comparison. Fleischner society guidelines do not directly correspond to patients with known malignancy. Surveillance imaging is recommended. 4. 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 Findings could also potentially be secondary to prior surgery or prior trauma. Please correlate with patient's history. 5. Other incidental and nonemergent findings are discussed above.
--- NOTE | 2025-04-29 08:45 | CTR_ITS ---
PROCEDURE INFORMATION: Exam: CT Chest With Contrast; Diagnostic Exam date and time: 04/29/2025 9:14 AM Age: 84 years old Clinical indication: Condition or disease; Other: Cll; Prior surgery; Surgery date: 6+ months; Surgery type: Bladder TECHNIQUE: Imaging protocol: Diagnostic computed tomography of the chest with contrast. Radiation optimization: All CT scans at this facility use at least one of these dose optimization techniques: automated exposure control; mA and/or kV adjustment per patient size (includes targeted exams where dose is matched to clinical indication); or iterative reconstruction. Contrast material: OMNI 350; Contrast volume: 75 ml; Contrast route: INTRAVENOUS (IV); COMPARISON: No relevant prior studies available. RADIATION DOSE METRICS: Total DLP (mGy-cm): 903.29 FINDINGS: Thyroid: Thyroid gland appears grossly unremarkable. Lungs: No endotracheal or endobronchial lesion noted. No lobar pneumonia. No lung mass. No gross bronchiectasis. 19 x 5 mm ground-glass density posterior aspect superior segment right lower lobe. Smaller densities posterior pleural margin right lower lobe with adjacent strandy fibrotic change. Minimal paraseptal emphysema appears present in the posterior aspects of the lower lobes. Mild strandy density inferior aspect left lower lobe may represent small amount of atelectasis or fibrotic change. Pleural spaces: No pleural effusion. No pneumothorax. Very small perifissural lung nodules inferior aspect left major fissure. Heart: No pericardial effusion. Heart size normal. Coronary arteries: Coronary artery calcification. Lymph nodes: Nonenlarged mediastinal lymph nodes visualized. No hilar adenopathy. No anterior mediastinal mass. No axillary adenopathy. Vasculature: Atherosclerotic calcification thoracic aorta and brachiocephalic vessels. No aneurysm or dissection of the thoracic aorta. No moderate or severe stenosis noted in the origins of the brachiocephalic vessels. Stomach: Large hiatal hernia with the majority of the stomach herniated into the chest. Hernia transverse diameter 10.5 cm. Mild thickening of most distal esophagus. Oral contrast in the stomach with minimal contrast in the esophagus. Bones/joints: Bone mineralization appears grossly unremarkable. Mild levoscoliosis of the thoracic spine. Some hypertrophic changes of the spine. Soft tissues: No chest wall mass noted. Other findings: No lytic or blastic process noted. PROCEDURE INFORMATION: Exam: CT Abdomen And Pelvis With Contrast Exam date and time: 04/29/2025 9:14 AM Age: 84 years old Clinical indication: Condition or disease; Other: Cll; Prior surgery; Surgery date: 6+ months; Surgery type: Bladder TECHNIQUE: Imaging protocol: Computed tomography of the abdomen and pelvis with contrast. Radiation optimization: All CT scans at this facility use at least one of these dose optimization techniques: automated exposure control; mA and/or kV adjustment per patient size (includes targeted exams where dose is matched to clinical indication); or iterative reconstruction. Contrast material: OMNI 350; Contrast volume: 75 ml; Contrast route: INTRAVENOUS (IV); COMPARISON: No relevant prior studies available. RADIATION DOSE METRICS: Total DLP (mGy-cm): 903.29 FINDINGS: Diaphragm: Large hiatal hernia as described on chest CT exam. Liver: Liver appears enlarged with length approximately 16.8 cm. No liver mass. Gallbladder and biliary ducts: Gallbladder not overly distended. No calcified gallstones. No biliary ductal dilatation. Pancreas: No focal lesion noted in the pancreas. No pancreatic ductal dilatation. Spleen: Spleen nonenlarged. No focal lesion of the spleen. Adrenal glands: Adrenal glands appear unremarkable. Kidneys and ureters: 3 mm stone lower pole right kidney. 2.2 cm hypodensity upper portion right kidney may represent parapelvic cyst rather than dilated calyx. No obvious right hydronephrosis. 6-7 mm hypodensity lower pole right kidney probably representing small cyst in. No left hydronephrosis. 36 x 31 cm cyst upper pole left kidney containing small calcification, Bosniak class II. 14 mm and smaller cysts scattered throughout the left kidney. Punctate calcific density lower pole left kidney. No obvious renal neoplasm noted. Ureters appear grossly unremarkable. Stomach and bowel: Oral contrast present in the stomach, jejunum and majority of the ileum. More distal ileum without significant amount of oral contrast. Cecum located right parasagittal aspect of the abdomen image 44 series 6. Terminal ileum appears grossly unremarkable. No bowel obstruction. Multiple diverticula of the proximal and mid sigmoid colon. Mild diffuse wall thickening of sigmoid colon. Stool scattered throughout the colon. No fecal impaction. Appendix: The appendix appears grossly unremarkable with gas filled lumen. Intraperitoneal space: No pneumoperitoneum. No ascites. 3.9 x 1.5 cm diverticulum right posterior aspect of the bladder image 74 series 6 with diverticular mouth diameter approximately 11 mm. Much smaller more anterior 9 mm diverticulum appears present involving the right aspect of the bladder. Vasculature: Patent portal vein. Patent hepatic veins. Diffuse atherosclerotic calcification abdominal aorta and common iliac arteries. No aneurysm. Inferior vena cava appears grossly unremarkable. Lymph nodes: No obvious adenopathy noted. Periportal lymph node with short axis diameter 8 mm, minimally prominent, probably reactive. Nonenlarged mesenteric lymph nodes. Urinary bladder: Bladder not overly distended. Some thickened appearance of the inferior aspect bladder wall diffusely with diameter approximately 10 mm. No obvious focal bladder mass noted; please correlate with patient history previous bladder surgery. Reproductive: Small densities in prostate gland possibly representing calcifications. Prostate gland nonenlarged; suggestion of previous TURP. Bones/joints: Bone mineralization appears grossly unremarkable. Mild dextroscoliosis lumbar spine. Diffuse hypertrophic changes of the lumbar spine. Oudy-yq-rajilpez narrowing of L2 through L5 disc space levels compatible with some degenerative disc changes. Minimal anterolisthesis of L2 on 3 body compatible with degenerative change. Probable small bone island proximal left femur image 80 series 6. No lytic or blastic process noted. Soft tissues: Findings compatible with lipoma of the right gluteus minimus muscle and the right tensor fascia jose alejandro muscle images 68- 84 series 6. No suspicious mass noted of the abdominal wall. Other findings: No obvious acute focal inflammatory process noted. No abscess appears present. CT/CT chest abdpel w/*[id number] IMPRESSION: 1. No lobar pneumonia. No lung mass. 19 mm ground-glass density right lower lobe. Comparison with any previous chest CT exams would be helpful. If none available, CT chest in 6 months may be helpful for further evaluation. 2. No adenopathy. 3. Atherosclerotic calcification coronary arteries. 4. Large hiatal hernia. Mild thickening distal esophagus. Please consider endoscopy. IMPRESSION: 1. Hepatomegaly. 2. No obvious adenopathy noted. 3. Some bladder wall thickening inferiorly without obvious focal mass. Diverticula right aspect of the bladder. Please correlate given patient history of bladder surgery. 4. Small calcification in each kidney. No hydronephrosis. 5. Findings compatible with bilateral renal cysts, vyjw-szjeraw-vbvl-right. No renal neoplasm noted. 6. Diverticula of sigmoid colon. No confirmation of acute diverticulitis. Mild diffuse wall thickening of sigmoid colon; please consider colonoscopy. 7. Large hiatal hernia as described on chest CT exam. COMMENTS: Consistent with the [employer]'s Incidental Findings Committee white paper (J Am [employer]ogie Radiol 2018): Any incidental renal lesion less than 1 cm or classified as too small to characterize, or any incidental cystic renal lesion characterized as simple-appearing, is likely benign. No follow-up imaging is recommended for these lesions per consensus recommendations based on imaging criteria.
[2025-04-29] MEDS: iohexol 350 mg/mL 500 mL Btl (per mL) PO (09:53)
[2025-04-29] MEDS: iohexol 350 mg/mL 500 mL Btl (per mL) IV ×2 (09:53→09:54)
== END 2025-05-27 23:59 | disposition home or self-care (01) ==
LOC: RAD 10:35 → ONCMED 11:22
PROVIDERS: PCP Family Medicine; Visit Provider Internal Medicine
DX: Z08 Encounter for follow-up examination after completed treatment for malignant neoplasm (principal); Z85.6 Personal history of leukemia; D50.9 Iron deficiency anemia, unspecified; Z85.51 Personal history of malignant neoplasm of bladder; Z92.21 Personal history of antineoplastic chemotherapy; G93.89 Other specified disorders of brain; R93.0 Abnormal findings on diagnostic imaging of skull and head, not elsewhere classified; R59.0 Localized enlarged lymph nodes; R91.8 Other nonspecific abnormal finding of lung field; R93.89 Abnormal findings on diagnostic imaging of other specified body structures; I65.23 Occlusion and stenosis of bilateral carotid arteries; M41.9 Scoliosis, unspecified; M50.323 Other cervical disc degeneration at C6-C7 level; M47.9 Spondylosis, unspecified; M48.02 Spinal stenosis, cervical region; R16.0 Hepatomegaly, not elsewhere classified; N32.9 Bladder disorder, unspecified; N32.3 Diverticulum of bladder; N28.89 Other specified disorders of kidney and ureter; K57.30 Diverticulosis of large intestine without perforation or abscess without bleeding; K63.9 Disease of intestine, unspecified; K44.9 Diaphragmatic hernia without obstruction or gangrene; R93.2 Abnormal findings on diagnostic imaging of liver and biliary tract; N20.0 Calculus of kidney; N28.1 Cyst of kidney, acquired; I70.0 Atherosclerosis of aorta; I70.8 Atherosclerosis of other arteries; R93.7 Abnormal findings on diagnostic imaging of other parts of musculoskeletal system; M79.89 Other specified soft tissue disorders; H53.8 Other visual disturbances
CPT/HCPCS: 70491; 71260; 74177; 99213

== ENCOUNTER 2025-05-06 08:30 | Outpatient (CLI) | payer MEDICARE, SELFPAY ==
--- NOTE | 2025-05-06 08:41 | MR_ITS ---
WS: [id number] MRI HEAD WITHOUT AND WITH GADOLINIUM ENHANCEMENT WITH ORBIT PROTOCOL TECHNIQUE: Sagittal T1, T2 axial, T2 axial FLAIR, axial susceptibility weighted imaging, axial diffusion weighted images, and coronal T2 images were obtained. Pre and post-T1 axial and post T1 coronal images. ADC and FSPGR images. Orbit protocol with fat saturation technique CLINICAL INFORMATION: HOMONYMOUS BILATERAL FIELD DEFECTS R SIDE COMPARISON: None. FINDINGS: Intraparenchymal hematoma in the LEFT parasagittal occipital lobe measuring 3.3 x 3.0 cm with T1 hyperintense subacute blood products. Associated surrounding edema in the LEFT parasagittal occipital lobe with localized mass effect. Moderate surrounding edema. Small amount of hemosiderin. Small amount of associated enhancement along the inferior posterior aspect of the hematoma. Differential considerations include benign hemorrhage versus possibly metastasis with hemorrhagic conversion. Recommend follow-up to exclude underlying lesion. Additional innumerable tiny areas of punctate chronic hemosiderin in the posterior temporal and LEFT greater than RIGHT occipital lobes as well as the cerebellum. Moderate small vessel changes. Mild to moderate parenchymal volume loss. Small vessel changes in the flavia. Few tiny chronic lacunar infarcts in the cerebellum bilaterally. Normal vascular flow voids at the skull base. No extra-axial fluid collections. Mild mucosal thickening in the paranasal sinuses. Mild mucosal thickening RIGHT mastoid tip. Otherwise no enhancing intracranial lesions. MR/MR head orbits wo/w* 16986/[id number] IMPRESSION: 1. Intraparenchymal hematoma in the LEFT parasagittal occipital lobe described above with subacute blood products. Moderate surrounding edema. Mass effect in the LEFT occipital horn. No hydrocephalus. 2. Small amount of associated enhancement in the posterior inferior aspect of the hematoma. Recommend follow-up to resolution to ensure no underlying lesion or metastasis. Small amount of subarachnoid hemorrhage in the LEFT parasagittal occipital lobe. 3. Innumerable tiny foci of hemosiderin in the bilateral posterior temporal, p arasagittal occipital, and cerebellum compatible with prior punctate foci of mi crohemorrhage. Consider hypertensive hemorrhage or possibly amyloid Notified Dr. Manuel covering for Dr. Coyle at 05/06/2025 10:[address] Wasserman in the ER. Patient will be transferred to the ER fo r further evaluation. 05/06/2025 10:09 AM
[2025-05-06] MEDS: gadobenate dimeglumine 20 mL vial 18 ML IV (09:35)
== END 2025-05-06 08:31 | disposition home or self-care (01) ==
LOC: RAD 08:32
PROVIDERS: PCP Family Medicine; Visit Provider Student in an Organized Health Care Education/Training Program
DX: H53.461 Homonymous bilateral field defects, right side (principal); I61.1 Nontraumatic intracerebral hemorrhage in hemisphere, cortical; I68.0 Cerebral amyloid angiopathy
CPT/HCPCS: 70543; 70553; A9577

== ENCOUNTER 2025-05-06 10:17 | Emergency (ER) | payer MEDICARE, SELFPAY ==
[2025-05-06 10:26] VITALS: BP 144/73; PULSE 70; RESP 17; TEMP 36.6; O2SAT 98; BMI 24.7
--- NOTE | 2025-05-06 11:25 | ECG_ITS ---
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 Measurements Intervals [place] Rate: 69 P: 3 [place]: 209 QRS: -21 QRSD: 106 T: 52 QT: 403 QTc: 432 Interpretive Statements SINUS RHYTHM WITH OCCASIONAL VENTRICULAR PREMATURE COMPLEXES BORDERLINE LEFT AXIS DEVIATION [QRS AXIS < -20] No previous ECG available for comparison Electronically Signed On 05-07-2025 17:29:34 POWER HAMMER OPERATOR by Dylon Perez M.D. [email or web address]
[2025-05-06 12:01] VITALS: BP 157/83; O2SAT 96
--- NOTE | 2025-05-06 12:05 | W.ED.RECABL ---
HPI - Recheck/Abnormal Lab/Rx General: Chief Complaint: Recheck/Abnormal Lab/Rx Stated Complaint: abnormal radiology Time Seen by Provider: 05/06/25 11:25 History of Present Illness: 84-year-old male presents to the emergency room with complaints of vision problems for the last month. And been intermittent and then about 4 days ago he began to have significant problems with difficulty with vision use and known history of CLL. His vision problems are persisting. He had seen ophthalmology and was referred for an MRI MRI was done today and showed acute occipital intraparenchymal bleed. Patient has not had any vomiting, headache or ataxia. Vision symptoms are persisting Related Data Home Medications ?Medication ?Instructions ?Recorded ?Confirmed acetaminophen 500 mg tablet 500 mg PO DAILY PRN 06/30/22 04/29/25 amlodipine 10 mg tablet 10 mg PO DAILY 06/30/22 04/29/25 aspirin 81 mg tablet,delayed 81 mg PO DAILY 06/30/22 04/29/25 release loratadine 10 mg tablet (Claritin) 10 mg PO DAILY 06/30/22 04/29/25 multivitamin 1 tab PO DAILY 06/30/22 04/29/25 omeprazole 20 mg capsule,delayed 20 mg PO DAILY 06/30/22 04/29/25 release psyllium husk 3.4 gram/5.4 gram 1 tbsp PO DAILY 06/30/22 04/29/25 oral powder (Metamucil) sennosides 8.6 mg-docusate sodium 1 tab-cap PO DAILY PRN 06/30/22 04/29/25 50 mg tablet (Senna-S) ezetimibe 10 mg tablet (Zetia) 10 mg PO DAILY 11/05/23 04/29/25 meloxicam 15 mg tablet mg PO 02/05/24 04/29/25 rosuvastatin 10 mg tablet 10 mg PO QDAY 02/11/25 04/29/25 Previous Rx's ?Medication ?Instructions ?Recorded prednisone 50 mg tablet 50 mg PO .COMPLEX #3 tabs 04/28/25 Allergies Allergy/AdvReac Type Severity Reaction Status Date / Time iodine Allergy Unknown Unknown Verified 04/29/25 15:03 Review of Systems Const: Denies: fever(s) or chills Card: Denies: chest pain Resp: Denies: dyspnea GI: Denies: abdominal pain : Denies: dysuria, urinary frequency or urinary urgency Musc: Denies: neck pain or back pain Skin/Breast: Denies: rash PFSH ED PFSH: Medical History History of iron deficiency anemia History of colonic polyps Hypertension Chronic lymphocytic leukemia Bladder cancer Superficial bladder cancer Surgical History History of transurethral resection of bladder tumor (TURBT) TURBT followed by intravesical BCG History of cystoscopy multiple cystoscopies History of transurethral resection of bladder tumor (TURBT) (2019) TURBT followed by intravesical Mitomycin-C H/O transurethral resection of prostate History of colonoscopy 06/05/2017 H/O bilateral cataract extraction Family History Father CAD (coronary artery disease) Brother Cancer Lung and prostate cancer Denies family history of Diabetes Clotting disorder Dementia Hyperlipidemia Psychiatric illness Chronic kidney disease (CKD) Suicide Anesthesia complication Bleeding disorder Lung disease Hypertension Stroke Social History Smoking and tobacco/nicotine status: never used tobacco/nicotine Quit status (tobacco/nicotine): has quit using Year quit tobacco: 1967 Former quit date comment: Quit 50 years ago, smoked for 10 to 12 years Alcohol intake: never Physical Exam Const: COMMON NORMALS: no acute distress GENERAL APPEARANCE: cooperative and comfortable ORIENTATION/CONSCIOUSNESS: Yes awake, Yes oriented to person, Yes oriented to place and Yes oriented to time HENMT: COMMON NORMALS: normocephalic, atraumatic and hearing grossly normal bilaterally HEAD & SCALP: normocephalic and atraumatic Resp: COMMON NORMALS: normal respiratory effort, No retractions, No use of accessory muscles and clear to auscultation bilaterally AUSCULTATION: clear to auscultation bilaterally Cardio: COMMON NORMALS: regular rate, regular rhythm and No murmurs present (Cardio) RATE: regular rate RHYTHM: regular rhythm GI: COMMON NORMALS: Soft to palpation and No hepatosplenomegaly present AUSCULTATION: Yes normoactive bowel sounds PALPATION: Yes Soft to palpation, No Tenderness to palpation present (GI), No Guarding due to palpation present (GI) and Yes No hepatosplenomegaly present Extremity: COMMON NORMALS: normal to inspection, capillary refill normal, no clubbing, cyanosis or edema, no calf tenderness and no pedal edema Neuro: SENSORIUM/ORIENTATION: Yes oriented to person, Yes oriented to place and Yes oriented to time Skin: COMMON NORMALS: no rashes or lesions noted GENERAL SKIN EXAM: no rashes or lesions noted Course Vital Signs: Vital signs: Vital Signs Temperature 97.8 F 05/06/25 10: Pulse Rate 78 05/06/25 13:17 Respiratory Rate 17 05/06/25 10:26 Blood Pressure 138/78 05/06/25 13:17 Pulse Oximetry 98 05/06/25 13:17 Oxygen Delivery Me thod Room Air 05/06/25 12:01 MDM - Recheck/Abnormal Lab/Rx Medical Decision Making Medical decision making Social determinants: None I reviewed the patient's medical record. I reviewed the patient's current home meds. Alternate historians: None Differential diagnosis: Acute intracranial bleed Lab Review: White count elevated 82 which is consistent with his CLL in the past. Lymphocyte count markedly elevated also consistent with his CLL. Sodium 135 potassium 3.7 BUN 16 creatinine 1.0. Liver functions unremarkable. Imaging: MRI head showed intraparenchymal hematoma left occipital lobe with mass effect and surrounding edema Assessment of risk Level of risk: High Hospitalization considerations: Known intraparenchymal bleed with mass effect will transfer to neurosurgery Reexamination: Unchanged Assessment and plan: Patient stable at this time. He is given a single dose of TXA and started on nicardipine for blood pressure control with a target of systolic less than 120. Patient has been accepted at [facility] in [place]. He is an ER to ER transfer stable at time of discharge Lab Data 05/06/25 11:49 05/06/25 11:49 Laboratory Results WBC 82.34 10^3/uL (3.29-11.43) H* 05/06/25 11:49 RBC 4.44 10^6/uL (3.85-5.65) 05/06/25 11:49 Hgb 12.70 g/dL (11.27-16.99) 05/06/25 11:49 Hct 38.9 % (37-53) 05/06/25 11:49 MCV 87.6 fl (82-101) 05/06/25 11:49 MCH 28.6 pg (27-33) 05/06/25 11:49 MCHC 32.6 g/dL (30-55) 05/06/25 11:49 RDW 15.7 % (12.1-15.1) H 05/06/25 11:49 Plt Count 332 10^3/cmm (157-399) 05/06/25 11:49 MPV 8.8 fL (7.4-10.4) 05/06/25 11:49 Neut % (Auto) 8.6 % 05/06/25 11:49 Lymph % (Auto) 80.3 % 05/06/25 11:49 [place] % (Auto) 8.6 % 05/06/25 11:49 Eos % (Auto) 1.0 % 05/06/25 11:49 Baso % (Auto) 1.1 % 05/06/25 11:49 Neut # (Auto) 7.09 10^3/uL (1.8-7.7) 05/06/25 11:49 Lymph # (Auto) 66.1 10^3/uL (0.8-4.8) H 05/06/25 11:49 [place] # (Auto) 7.1 10^3/uL (0.2-0.9) H 05/06/25 11:49 Eos # (Auto) 0.9 10^3/uL (0.0-0.8) H 05/06/25 11:49 Baso # (Auto) 0.9 10^3/uL (0.0-0.1) H 05/06/25 11:49 Nucleated RBC % (auto) 0 % 05/06/25 11:49 Nucleated RBCs # 0.0 /100WBC 05/06/25 11:49 PT 12.80 SECONDS (12.1-14.9) 05/06/25 11:49 INR 0.90 (0.8-1.2) 05/06/25 11:49 APTT 27.2 SECONDS (23.9-36.7) 05/06/25 11:49 Sodium 135 mmol/L (136-145) L 05/06/25 11:49 Potassium 3.7 mmol/L (3.5-5.1) 05/06/25 11:49 Chloride 100 mmol/L (98-107) 05/06/25 11:49 Carbon Dioxide 24 mmol/L (22-29) 05/06/25 11:49 Anion Gap 14.7 (5-19) 05/06/25 11:49 BUN 16 mg/dL (8-23) 05/06/25 11:49 Creatinine 1.0 mg/dL (0.7-1.2) 05/06/25 11:49 GFR Calculation Not Reportable 05/06/25 11:49 Glucose 129 mg/dL (65-115) H 05/06/25 11:49 Calculated Osmolality 283 mOsm/kg (285-295) L 05/06/25 11:49 Calcium 9.5 mg/dL (8.5-10.5) 05/06/25 11:49 Total Bilirubin 0.4 mg/dL (0.15-1.2) 05/06/25 11:49 AST 23 U/L (0-40) 05/06/25 11:49 ALT 17 U/L (0-41) 05/06/25 11:49 Alkaline Phosphatase 83 U/L (40-130) 05/06/25 11:49 Total Protein 7.8 g/dL (6.6-8.7) 05/06/25 11:49 Albumin 4.2 g/dL (3.5-5.2) 05/06/25 11:49 Globulin 3.6 g/dL (1.3-4.6) 05/06/25 11:49 All radiology interpretation(s) finalized by discharge Discharge Plan Discharge Patient Disposition: Xfer Short-Term Hosp Clinical Impression: Intraparenchymal hematoma of brain, Chronic lymphocytic leukemia of B-cell type not having achieved remission Condition: Stable Referrals: Jarvis Santos MD [Primary Care Provider, [facility]] Print Language: Chadian Coding Level of Care Code ED Media Aid for Gerri Grossman
[2025-05-06 12:09] LABS: Hematocrit 38.9 % (37-53); Hemoglobin 12.70 g/dL (11.27-16.99); Mean Corpuscular HGB Conc 32.6 g/dL (30-55); Mean Corpuscular Hemoglobin 28.6 pg (27-33); Mean Corpuscular Volume 87.6 fl (82-101); Nucleated Red Blood Cells % 0 %; Platelet Count 332 10^3/cmm (157-399); Red Blood Count 4.44 10^6/uL (3.85-5.65)
[2025-05-06] MEDS: tranexamic acid 1,000 MG/100 ML PREMIX 600 MG IV (12:10)
[2025-05-06] MEDS: nicardipine 20 MG/200 ML PREMIX 50 MG IV (12:22)
[2025-05-06 12:29] LABS: Alanine Aminotransferase 17 U/L (0-41); Albumin Level 4.2 g/dL (3.5-5.2); Alkaline Phosphatase 83 U/L (40-130); Anion Gap 14.7 (5-19); Aspartate Amino Transferase 23 U/L (0-40); Blood Urea Nitrogen 16 mg/dL (8-23); Calcium 9.5 mg/dL (8.5-10.5); Carbon Dioxide 24 mmol/L (22-29); Chloride 100 mmol/L (98-107); Globulin 3.6 g/dL (1.3-4.6); Glucose 129 mg/dL (65-115); Osmolality Calculated 283 mOsm/kg (285-295); Potassium 3.7 mmol/L (3.5-5.1); Sodium 135 mmol/L (136-145); Total Protein 7.8 g/dL (6.6-8.7)
[2025-05-06 12:41] LABS: Slide Review Slide Review Perform
[2025-05-06 12:42] LABS: White Blood Count 82.34 10^3/uL (3.29-11.43)
[2025-05-06 12:43] VITALS: BP 147/72
[2025-05-06 13:17] VITALS: BP 138/78; PULSE 78; O2SAT 98
[2025-05-06 13:54] LABS: INR 0.90 (0.8-1.2); Prothrombin Time 12.80 SECONDS (12.1-14.9)
[2025-05-06 13:55] LABS: Partial Thromboplastin Time 27.2 SECONDS (23.9-36.7)
== END 2025-05-06 13:18 | disposition short-term general hospital (02) ==
PROVIDERS: Emergency Provider Family Medicine; PCP Family Medicine
DX: I61.8 Other nontraumatic intracerebral hemorrhage (principal); C91.10 Chronic lymphocytic leukemia of B-cell type not having achieved remission; Z87.891 Personal history of nicotine dependence; I10 Essential (primary) hypertension; Z85.51 Personal history of malignant neoplasm of bladder
CPT/HCPCS: 36415; 80053; 85025; 85610; 85730; 93005; 96374; 96375; 99285; J2404; J9999